=== PATIENT | female | born 1955 | race American Indian/Alaskan Native ===

== ENCOUNTER 2021-08-28 16:44 | Observation (INO) | payer MEDICARE ==
--- NOTE | 2021-08-28 19:21 | Emergency Department Report ---
ED Shortness of Breath HPI - General Chief Complaint: Dyspnea/Respdistress Stated Complaint: Shortness of Breath Time Seen by Provider: 08/28/21 18:42 Source: patient Mode of arrival: Wheelchair Limitations: No Limitations - History of Present Illness Initial Comments: 66-year-old female the past medical history hypertension end-stage renal disease current dialysis Saturday, Saturday, and Saturday presents to the hospital planing of persistent shortness of breath and edema despite completing her dialysis today. Patient states they typically take off 2 to 3 L and took all 4 L today without improvement in her symptoms. Patient states she missed one of her dialysis sessions last week. Patient moved here 1 month ago from [place] and cannot recall the name of her steak tenderizer machine. She currently goes to [facility]. She complains of chronic orthopnea and PND with worsening leg edema over the last 3 weeks. She denies cough, chest pain, fever, or history of PE/DVT. She is vaccinated for Covid and received a booster. Patient states she has very little urine output. Patient reports allergies to lisinopril and penicillin - Related Data Allergies Allergy/AdvReac Type Severity Reaction Status Date / Time lisinopril AdvReac Itching Verified 08/28/21 20:00 Penicillins AdvReac Hives Verified 08/28/21 20:01 ED Review of Systems ROS: Stated complaint: Shortness of Breath Other details as noted in HPI Comment: All other systems reviewed and negative ED Physical Exam - General Limitations: No Limitations - Other Other exam information: General: No acute distress Head: Atraumatic Eyes: normal appearance ENT: Moist mucous membranes Neck: Normal appearance, no midline tenderness Chest: Clear to auscultation bilaterally, no tachypnea CV: Regular rate and rhythm Abdomen: Soft, normal bowel sounds, nontender, nondistended, no rebound or guarding Back: Normal inspection Extremity: 2+ pitting lower extremity edema. No leg asymmetry or calf tenderness Neuro: Alert O x 3, no facial asymmetry, speech clear, no gross motor sensory deficit Psych: Appropriate behavior Skin: No rash ED Course Vital Signs 08/28/21 08/28/21 17:08 17:12 Temperature 98.2 F Pulse Rate 107 H Respiratory 18 Rate Blood Pressure 149/87 [Left] O2 Sat by Pulse 95 Oximetry - Consultations Consultation #1: 01/03/22 20:33 Case discussed with steak tenderizer machine Dr. Collier who will manage dialysis as inpatient ED Medical Decision Making - Lab Data Result diagrams: 08/28/21 19:21 08/28/21 19:21 Lab Results 08/28/21 08/28/21 Range/Units 19:21 19:21 WBC 5.4 (4.5-11.0) K/mm3 RBC 3.66 (3.65-5.03) M/mm3 Hgb 10.0 L (10.1-14.3) gm/dl Hct 31.5 (30.3-42.9) % MCV 86 (79-97) fl MCH 27 L (28-32) pg MCHC 32 (30-34) % RDW 17.0 H (13.2-15.2) % Plt Count 187 (140-440) K/mm3 Sodium 138 (137-145) mmol/L Potassium 4.7 (3.6-5.0) mmol/L Chloride 91.8 L (98-107) mmol/L Carbon Dioxide 31 H (22-30) mmol/L Anion Gap 20 mmol/L BUN 47 H (7-17) mg/dL Creatinine 5.6 H (0.6-1.2) mg/dL Estimated GFR 8 ml/min BUN/Creatinine Ratio 8 % Glucose 79 (65-100) mg/dL Calcium 8.6 (8.4-10.2) mg/dL Total Bilirubin 0.40 (0.1-1.2) mg/dL AST 54 H (5-40) units/L ALT 78 H (7-56) units/L Alkaline Phosphatase 130 H (35-129) units/L Total Protein 8.5 H (6.3-8.2) g/dL Albumin 4.1 (3.9-5) g/dL Albumin/Globulin Ratio 0.9 % - Radiology Data Radiology results: report reviewed CHEST 2 VIEWS INDICATION / CLINICAL INFORMATION: sob. COMPARISON: None available. FINDINGS: SUPPORT DEVICES: None. HEART / MEDIASTINUM: Cardiomediastinal silhouette is enlarged. LUNGS / PLEURA: Bilateral increased interstitial markings. No pneumothorax. ADDITIONAL FINDINGS: No significant additional findings. IMPRESSION: 1. Cardiomegaly with bilateral pulmonary edema. - Medical Decision Making 66-year old female with a past medical history of end-stage renal disease on dialysis and continues to have pulmonary edema shortness of breath despite dialysis. Patient did miss dialysis session last week and therefore is presenting with fluid overload. Case discussed with steak tenderizer machine on-call. Hospitalist informed to admit. ekg pending Critical Care Time: No Critical care attestation.: If time is entered above; I have spent that time in minutes in the direct care of this critically ill patient, excluding procedure time. ED Disposition Clinical Impression: Pulmonary edema, ESRD on dialysis, Missed dialysis Disposition: ADMITTED INPATIENT Is pt being admited?: Yes Does the pt Need Aspirin: No Condition: Stable Instructions: Pulmonary Edema (ED) Time of Disposition: 20:33 (Dr Becerra/hospitalist)
--- NOTE | 2021-08-28 19:39 | XRay Report ---
CHEST 2 VIEWS INDICATION / CLINICAL INFORMATION: sob. COMPARISON: None available. FINDINGS: SUPPORT DEVICES: None. HEART / MEDIASTINUM: Cardiomediastinal silhouette is enlarged. LUNGS / PLEURA: Bilateral increased interstitial markings. No pneumothorax. ADDITIONAL FINDINGS: No significant additional findings. IMPRESSION: 1. Cardiomegaly with bilateral pulmonary edema. Signer Name: Nando Georges MD Signed: 08/28/2021 7:35 PM Workstation Name: [id number]
[2021-08-28 19:50] LABS: Hematocrit 31.5 % (30.3-42.9); Mean Corpuscular HGB Conc 32 % (30-34); Mean Corpuscular Volume 86 fl (79-97); Platelet Count 187 K/mm3 (140-440); Red Blood Count 3.66 M/mm3 (3.65-5.03)
[2021-08-28 20:12] LABS: Alanine Aminotransferase 78 units/L (7-56); Albumin 4.1 g/dL (3.9-5); Blood Urea Nitrogen 47 mg/dL (7-17); Calcium 8.6 mg/dL (8.4-10.2); Hemolysis Index 15
[2021-08-28 20:26] LABS: BUN/Creatinine Ratio 8
[2021-08-28] MEDS ORDERED: MAGNESIUM HYDROXIDE (MOM) ORAL LIQD UDC PO PRN (22:05)
[2021-08-28] MEDS ORDERED: MORPHINE 2 MG/1 ML INJ IV PRN (22:05)
[2021-08-28] MEDS ORDERED: ONDANSETRON 4 MG/2 ML INJ IV PRN (22:05)
[2021-08-28] MEDS ORDERED: MORPHINE 4 MG/1 ML INJ IV PRN (22:05)
--- NOTE | 2021-08-28 22:14 | History and Physical Report ---
History of Present Illness Date of examination: 08/28/21 Date of admission: 08/28/2021 Chief complaint: Shortness of Breath History of present illness: 66-year-old female with known history of hypertension, end-stage renal disease on dialysisMondays, Wednesdays and Fridays presenting to the emergency room today complaining of worsening shortness of breath and lower extremity swelling after completing her dialysis today. She had a full course of dialysis today bu t has found no improvement in her symptoms. She however indicates that she missed a dialysis session about a week ago. She just recently moved from [place] to [place]. She currently goes to [facility]. She has had orthopnea and paroxysmal nocturnal dyspnea in addition to a wor sening lower extremity swelling. She indicates she still makes a little bit of urine. Patient symptoms has been ongoing for about 3 weeks. She denies any cough, no chest pain, no nausea vomiting, no fever or chills, no abdominal pain. Patient denies any sick contacts denies any contact with anyone with COVID-19. She is fully vaccinated against COVID-19. Work-up in the emergency room today, labs reveals BNP greater than 70,000. Chest x-ray reveals cardiomegaly with bilateral pulmonary edema. Snow Groomer on-call has been consulted by the ER physician for possible dialysis. Past History Past Medical History: dialysis, ESRD, hypertension Past Surgical History: Other (A-V fistula placement) Social history: no significant social history Family history: no significant family history Medications and Allergies Allergies Allergy/AdvReac Type Severity Reaction Status Date / Time lisinopril AdvReac Itching Verified 08/28/21 20:00 Penicillins AdvReac Hives Verified 08/28/21 20:01 Active Meds: Active Medications Acetaminophen (Acetaminophen 325 Mg Tab) 650 mg PO Q4H PRN PRN Reason: Pain MILD(1-3)/Fever >100.5/CURRY Heparin Sodium (Porcine) (Heparin 5,000 Unit/1 Ml Vial) 5,000 unit SUB-Q Q8HR S CH Magnesium Hydroxide (Magnesium Hydroxide (Mom) Oral Liqd Udc) 30 ml PO Q4H PRN PRN Reason: Constipation Morphine Sulfate (Morphine 2 Mg/1 Ml Inj) 2 mg IV Q4H PRN PRN Reason: Pain, Moderate (4-6) Morphine Sulfate (Morphine 4 Mg/1 Ml Inj) 4 mg IV Q4H PRN PRN Reason: Pain , Severe (7-10) Ondansetron HCl (Ondansetron 4 Mg/2 Ml Inj) 4 mg IV Q8H PRN PRN Reason: Nausea And Vomiting Sodium Chloride (Sodium Chloride 0.9% 10 Ml Flush Syringe) 10 ml IV BID TIFFANY Sodium Chloride (Sodium Chloride 0.9% 10 Ml Flush Syringe) 10 ml IV PRN PRN PRN Reason: LINE FLUSH Review of Systems Constitutional: no fever, no chills Ears, nose, mouth and throat: no nasal congestion, no sore throat Cardiovascular: no chest pain, no palpitations Respiratory: shortness of breath, no cough Gastrointestinal: no abdominal pain, no nausea, no vomiting, no diarrhea Genitourinary Female: no pelvic pain, no flank pain, no dysuria, no hematuria Musculoskeletal: no neck pain, no low back pain Integumentary: no rash, no pruritis Neurological: no headaches, no confusion Psychiatric: no anxiety, no depression Endocrine: no polyphagia, no polydipsia, no polyuria, no nocturia Exam - Constitutional Vitals: Temp Pulse Resp BP Pulse Ox 98.2 F 107 H 18 149/87 95 08/28/21 17:12 08/28/21 17:08 08/28/21 17:08 08/28/21 17:08 08/28/21 17:08 General appearance: Present: no acute distress, well-nourished - EENT Eyes: Present: PERRL, EOM intact. Absent: scleral icterus ENT: hearing intact, clear oral mucosa, dentition normal - Neck Neck: Present: supple, normal ROM - Respiratory Respiratory effort: normal Respiratory: bilateral: rales - Cardiovascular Rhythm: regular Heart Sounds: Present: S1 & S2. Absent: gallop, systolic murmur, diastolic murmur, rub, click - Extremities Extremities: no ischemia, pulses intact, pulses symmetrical, normal temperature, normal color, Full ROM Extremity abnormal: edema (2+ pedro pablo lower extremity edema) Peripheral Pulses: within normal limits - Abdominal General gastrointestinal: Present: soft, non-tender, non-distended, normal bowel sounds. Absent: mass - Integumentary Integumentary: Present: clear, warm, dry, normal turgor. Absent: rash - Musculoskeletal Musculoskeletal: strength equal bilaterally - Psychiatric Psychiatric: appropriate mood/affect, intact judgment & insight, memory intact, cooperative - Neurologic Neurologic: CNII-XII intact, no focal deficits, moves all extremities Results - Labs CBC & Chem 7: 08/28/21 19:21 08/28/21 19:21 Labs: Abnormal lab results 08/28/21 08/28/21 Range/Units 19:21 19:21 Hgb 10.0 L (10.1-14.3) gm/dl MCH 27 L (28-32) pg RDW 17.0 H (13.2-15.2) % Chloride 91.8 L (98-107) mmol/L Carbon Dioxide 31 H (22-30) mmol/L BUN 47 H (7-17) mg/dL Creatinine 5.6 H (0.6-1.2) mg/dL AST 54 H (5-40) units/L ALT 78 H (7-56) units/L Alkaline Phosphatase 130 H (35-129) units/L NT-Pro-B Natriuret Pep > 73734 H (0-900) pg/mL Total Protein 8.5 H (6.3-8.2) g/dL Assessment and Plan - Patient Problems (1) Pulmonary edema Current Visit: Yes Status: Acute Plan to address problem: Will await nephrology evaluation for possible dialysis. (2) ESRD on dialysis Current Visit: Yes Status: Acute Plan to address problem: Patient gets dialysis on Mondays, Wednesdays and Fridays. (3) Hypertension Current Visit: Yes Status: Acute Plan to address problem: We will resume routine home medications once reconciled. We will monitor vital signs. (4) DVT prophylaxis Current Visit: Yes Status: Acute Plan to address problem: Patient placed on subcutaneous heparin. (5) Full code status Current Visit: Yes Status: Acute Plan to address problem: Patient is full code.
[2021-08-28 22:58] LABS: Total Cells Counted 100
[2021-08-28 23:00] LABS: Anisocytosis Few; Ovalocytes 1+; Schistocytes Few; Target Cells Rare
[2021-08-28 23:01] LABS: Platelet Estimate Consistent w Auto
[2021-08-29] MEDS: ACETAMINOPHEN 325 MG TAB PO PRN ×2 (01:24→21:21)
[2021-08-29] MEDS ORDERED: EPOETIN ALFA-EPBX 10,000 UNIT/1 ML VIAL IV PRN (07:08)
[2021-08-29] MEDS ORDERED: SODIUM CHLORIDE 0.9% 100 ML IV PRN (07:08)
[2021-08-29] MEDS: HEPARIN 5,000 UNIT/1 ML VIAL SUB-Q SCH ×3 (07:16→22:53)
--- NOTE | 2021-08-29 11:31 | Progress Note ---
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 She had a full course of dialysis RAIL TECHNICIAN but has found no improvement in her symptoms. She just recently moved from [place] to [place]. She currently goes to [facility]. The patient report orthopnea and paroxysmal nocturnal dyspnea in addition to a worsening lower extremity swelling for about 3 weeks. Acute hypoxic respiratory failure pulmonary edema ESRD on hemodialysis Hypertension 08/29/2021. Patient undergo hemodialysis per nephrology recommendations. Nephrology consultation pending. We will check echocardiogram. History Interval history: No new issues overnight Hospitalist Physical - Constitutional Vitals: Temp Pulse Resp BP Pulse Ox 98.2 F 102 H 18 133/71 92 08/28/21 17:12 08/29/21 10:01 08/29/21 10:01 08/29/21 10:01 08/29/21 10:01 General appearance: Present: no acute distress, well-nourished - EENT Eyes: Present: PERRL, EOM intact ENT: hearing intact, clear oral mucosa, dentition normal - Neck Neck: Present: supple, normal ROM - Respiratory Respiratory effort: normal Respiratory: bilateral: CTA - Cardiovascular Rhythm: regular Heart Sounds: Present: S1 & S2. Absent: gallop, rub - Extremities Extremities: no ischemia, No edema, Full ROM - Abdominal General gastrointestinal: soft, non-tender, non-distended, normal bowel sounds - Integumentary Integumentary: Present: clear, warm, dry - Neurologic Neurologic: CNII-XII intact, moves all extremities Results - Labs CBC & Chem 7: 08/28/21 19:21 08/28/21 19:21 Labs: Laboratory Last Values WBC 5.4 K/mm3 (4.5-11.0) 08/28/21 19: RBC 3.66 M/mm3 (3.65-5.03) 08/28/21 19:21 Hgb 10.0 gm/dl (10.1-14.3) L 08/28/21 19: Hct 31.5 % (30.3-42.9) 08/28/21 19: MCV 86 fl (79-97) 08/28/21 19:21 MCH 27 pg (28-32) L 08/28/21 19:21 MCHC 32 % (30-34) 08/28/21 19:21 RDW 17.0 % (13.2-15.2) H 08/28/21 19:21 Plt Count 187 K/mm3 (140-440) 08/28/21 19:21 Add Manual Diff Complete 08/28/21 19:21 Total Counted 100 08/28/21 19:21 Seg Neuts % (Manual) 76.0 % (40.0-70.0) H 08/28/21 19:21 Lymphocytes % (Manual) 19.0 % (13.4-35.0) 08/28/21 19:21 Monocytes % (Manual) 5.0 % (0.0-7.3) 08/28/21 19:21 Nucleated RBC % Not Reportable 08/28/21 19:21 Seg Neutrophils # Man 4.1 K/mm3 (1.8-7.7) 08/28/21 19:21 Band Neutrophils # 0.0 K/mm3 08/28/21 19:21 Lymphocytes # (Manual) 1.0 K/mm3 (1.2-5.4) L 08/28/21 19:21 Abs React Lymphs (Man) 0.0 K/mm3 08/28/21 19:21 Monocytes # (Manual) 0.3 K/mm3 (0.0-0.8) 08/28/21 19:21 Eosinophils # (Manual) 0.0 K/mm3 (0.0-0.4) 08/28/21 19:21 Basophils # (Manual) 0.0 K/mm3 (0.0-0.1) 08/28/21 19:21 Metamyelocytes # 0.0 K/mm3 08/28/21 19:21 Myelocytes # 0.0 K/mm3 08/28/21 19:21 Promyelocytes # 0.0 K/mm3 08/28/21 19:21 Blast Cells # 0.0 K/mm3 08/28/21 19:21 WBC Morphology Not Reportable 08/28/21 19:21 Hypersegmented Neuts Not Reportable 08/28/21 19:21 Hyposegmented Neuts Not Reportable 08/28/21 19:21 Hypogranular Neuts Not Reportable 08/28/21 19:21 Smudge Cells Not Reportable 08/28/21 19:21 Toxic Granulation Not Reportable 08/28/21 19:21 Toxic Vacuolation Not Reportable 08/28/21 19:21 Dohle Bodies Not Reportable 08/28/21 19:21 Pelger-Huet Anomaly Not Reportable 08/28/21 19:21 Delta Rods Not Reportable 08/28/21 19:21 Platelet Estimate Consistent w auto 08/28/21 19:21 Clumped Platelets Not Reportable 08/28/21 19:21 Plt Clumps, EDTA Not Reportable 08/28/21 19:21 Large Platelets Not Reportable 08/28/21 19:21 Giant Platelets Not Reportable 08/28/21 19:21 Platelet Satelliting Not Reportable 08/28/21 19:21 Plt Morphology Comment Not Reportable 08/28/21 19:21 RBC Morphology Not Reportable 08/28/21 19:21 Dimorphic RBCs Not Reportable 08/28/21 19:21 Polychromasia Not Reportable 08/28/21 19:21 Hypochromasia Not Reportable 08/28/21 19:21 Poikilocytosis Not Reportable 08/28/21 19:21 Anisocytosis Few 08/28/21 19:21 Microcytosis Not Reportable 08/28/21 19:21 Macrocytosis Not Reportable 08/28/21 19:21 Spherocytes Not Reportable 08/28/21 19:21 Pappenheimer Bodies Not Reportable 08/28/21 19:21 Sickle Cells Not Reportable 08/28/21 19:21 Target Cells Rare 08/28/21 19:21 Tear Drop Cells Not Reportable 08/28/21 19:21 Ovalocytes 1+ 08/28/21 19:21 Helmet Cells Not Reportable 08/28/21 19:21 [place] Bodies Not Reportable 08/28/21 19:21 Shelby Rings Not Reportable 08/28/21 19:21 Flora Cells Not Reportable 08/28/21 19:21 Bite Cells Not Reportable 08/28/21 19:21 Crenated Cell Not Reportable 08/28/21 19:21 Elliptocytes Not Reportable 08/28/21 19:21 Acanthocytes (Spur) Not Reportable 08/28/21 19:21 Rouleaux Not Reportable 08/28/21 19:21 Hemoglobin C Crystals Not Reportable 08/28/21 19:21 Schistocytes Few 08/28/21 19:21 Malaria parasites Not Reportable 08/28/21 19:21 Arcenio Bodies Not Reportable 08/28/21 19:21 Hem Pathologist Commnt No 08/28/21 19:21 Sodium 138 mmol/L (137-145) 08/28/21 19:21 Potassium 4.7 mmol/L (3.6-5.0) 08/28/21 19:21 Chloride 91.8 mmol/L (98-107) L 08/28/21 19:21 Carbon Dioxide 31 mmol/L (22-30) H 08/28/21 19:21 Anion Gap 20 mmol/L 08/28/21 19:21 BUN 47 mg/dL (7-17) H 08/28/21 19:21 Creatinine 5.6 mg/dL (0.6-1.2) H 08/28/21 19:21 Estimated GFR 8 ml/min 08/28/21 19:21 BUN/Creatinine Ratio 8 % 08/28/21 19:21 Glucose 79 mg/dL (65-100) 08/28/21 19:21 Calcium 8.6 mg/dL (8.4-10.2) 08/28/21 19:21 Total Bilirubin 0.40 mg/dL (0.1-1.2) 08/28/21 19:21 AST 54 units/L (5-40) H 08/28/21 19:21 ALT 78 units/L (7-56) H 08/28/21 19:21 Alkaline Phosphatase 130 units/L (35-129) H 08/28/21 19:21 NT-Pro-B Natriuret Pep > 53276 pg/mL (0-900) H 08/28/21 19:21 Total Protein 8.5 g/dL (6.3-8.2) H 08/28/21 19:21 Albumin 4.1 g/dL (3.9-5) 08/28/21 19:21 Albumin/Globulin Ratio 0.9 % 08/28/21 19:21 Active Medications - Current Medications Current Medications: Generic Name Dose Route Start Last Admin Trade Name Freq PRN Reason Stop Dose Admin Acetaminophen 650 mg 08/28/21 22:05 08/29/21 01:24 Acetaminophen 325 Mg Tab PO 650 mg Q4H PRN Administration Pain MILD(1-3)/Fever >100.5/CURRY Heparin Sodium (Porcine) 5,000 unit 08/29/21 06:00 08/29/21 07:16 Heparin 5,000 Unit/1 Ml Vial SUB-Q 5,000 unit Q8HR TIFFANY Administration Sodium Chloride 100 mls @ 999 mls/hr 08/29/21 07:08 Nacl 0.9% IV KATHY PRN Hypotension Magnesium Hydroxide 30 ml 08/28/21 22:05 Magnesium Hydroxide (Mom) Oral Liqd Udc PO Q4H PRN Constipation Morphine Sulfate 2 mg 08/28/21 22:05 Morphine 2 Mg/1 Ml Inj IV Q4H PRN Pain, Moderate (4-6) Morphine Sulfate 4 mg 08/28/21 22:05 Morphine 4 Mg/1 Ml Inj IV Q4H PRN Pain , Severe (7-10) Ondansetron HCl 4 mg 08/28/21 22:05 Ondansetron 4 Mg/2 Ml Inj IV Q8H PRN Nausea And Vomiting Sodium Chloride 10 ml 08/29/21 10:00 08/29/21 10:02 Sodium Chloride 0.9% 10 Ml Flush Syringe IV 10 ml BID TIFFANY Administration Sodium Chloride 10 ml 08/28/21 22:05 Sodium Chloride 0.9% 10 Ml Flush Syringe IV PRN PRN LINE FLUSH
[2021-08-29 12:12] LABS: Hepatitis C Virus Antibody Non-Reactive (NonReactive)
[2021-08-29 12:14] LABS: Hepatitis B Surface Antigen Nonreactive (Negative)
--- NOTE | 2021-08-29 13:24 | Consultation ---
History of Present Illness - Reason for Consult end stage renal disease - History of Present Illness very pleasant 66-year-old female with a history of end-stage renal disease in the setting of hypertension who recently moved to [place] from [place], who currently dialyzes at [facility], presented to the emergency department with shortness of breath. Her last dialysis treatment was yesterday. She is on a Saturday, Saturday, Saturday hemodialysis schedule. She is under the care of Dr. Montalvo as an outpatient. Per dialysis nurse at the facility it seems that Ms. Corona has had issues with missing treatments in the past and also with high intradialytic weight gain. She in fact was supposed to be set up for sequential treatment today as an outpatient but came into the emergency room department at this time. Nephrology consult for further dialysis management. Past History Past Medical History: dialysis, ESRD, hypertension Past Surgical History: Other (A-V fistula placement) Social history: no significant social history Family history: no significant family history Medications and Allergies Allergies Allergy/AdvReac Type Severity Reaction Status Date / Time lisinopril AdvReac Itching Verified 08/29/21 09:55 Penicillins AdvReac Hives Verified 08/29/21 09:55 Home Medications Medication Instructions Recorded Confirmed Last Taken Type Losartan [Cozaar] 50 mg PO QDAY 08/29/21 08/29/21 08/27/21 History Multivitamin [Multiple Vitamins] 1 each PO QDAY 08/29/21 08/29/21 08/27/21 History carvediloL [Coreg] 3.125 mg PO BID 08/29/21 08/29/21 08/27/21 History Active Meds: Active Medications Acetaminophen (Acetaminophen 325 Mg Tab) 650 mg PO Q4H PRN PRN Reason: Pain MILD(1-3)/Fever >100.5/CURRY Last Admin: 08/29/21 01:24 Dose: 650 mg Documented by: Heparin Sodium (Porcine) (Heparin 5,000 Unit/1 Ml Vial) 5,000 unit SUB-Q Q8HR TIFFANY Last Admin: 08/29/21 07:16 Dose: 5,000 unit Documented by: Sodium Chloride (Nacl 0.9%) 100 mls @ 999 mls/hr IV KATHY PRN PRN Reason: Hypotension Magnesium Hydroxide (Magnesium Hydroxide (Mom) Oral Liqd Udc) 30 ml PO Q4H PRN PRN Reason: Constipation Morphine Sulfate (Morphine 2 Mg/1 Ml Inj) 2 mg IV Q4H PRN PRN Reason: Pain, Moderate (4-6) Morphine Sulfate (Morphine 4 Mg/1 Ml Inj) 4 mg IV Q4H PRN PRN Reason: Pain , Severe (7-10) Ondansetron HCl (Ondansetron 4 Mg/2 Ml Inj) 4 mg IV Q8H PRN PRN Reason: Nausea And Vomiting Sodium Chloride (Sodium Chloride 0.9% 10 Ml Flush Syringe) 10 ml IV BID TIFFANY Last Admin: 08/29/21 10:02 Dose: 10 ml Documented by: Sodium Chloride (Sodium Chloride 0.9% 10 Ml Flush Syringe) 10 ml IV PRN PRN PRN Reason: LINE FLUSH Review of Systems All systems: negative Constitutional: fatigue, weakness Cardiovascular: shortness of breath Exam - Vital Signs Vital signs: Vital Signs Pulse Resp BP Pulse Ox 107 H 18 149/87 95 08/28/21 17:08 08/28/21 17:08 08/28/21 17:08 08/28/21 17:08 - General Appearance General appearance: well-developed, obese EENT: ATNC Neck: Present: neck supple, trachea midline Respiratory: Decreased Breath Sounds Heart: regular Gastrointestinal: Present: normal Integumentary: no rash, warm and dry Neurologic: no focal deficit, alert and oriented x3 Musculoskeletal: Present: deferred Psychiatric: cooperative Results - Lab Results 08/28/21 19:21 08/28/21 19:21 Most recent lab results Calcium 8.6 mg/dL (8.4-10.2) 08/28/21 19:21 Assessment and Plan - Patient Problems (1) Fluid overload Current Visit: Yes Status: Acute Plan to address problem: Will assess for sequential ultrafiltration treatment today for further volume optimization. From nephrology standpoint if she remains stable post dialysis treatment then she can be discharged with follow-up at her outpatient dialysis unit. (2) ESRD on dialysis Current Visit: Yes Status: Chronic Plan to address problem: we will set patient up for sequential ultrafiltration treatment today for further volume optimization. If patient does state till tomorrow then will have her dialyze on her regular Saturday, Saturday, Saturday hemodialysis schedule. (3) Anemia in CKD (chronic kidney disease) Current Visit: Yes Status: Chronic Qualifiers: Chronic kidney disease stage: on chronic dialysis Qualified Code(s): N18.6 - End stage renal disease; D63.1 - Anemia in chronic kidney disease; Z99.2 - D ependence on renal dialysis Plan to address problem: KATIUSKA therapy with hemodialysis. (4) Secondary hyperparathyroidism Current Visit: Yes Status: Chronic Plan to address problem: continue on home phosphorus binder regimen. (5) Hypertension Current Visit: Yes Status: Acute Plan to address problem: monitor blood pressures under current regimen.
[2021-08-30] MEDS: ACETAMINOPHEN 325 MG TAB PO PRN (01:32)
[2021-08-30] MEDS: HEPARIN 5,000 UNIT/1 ML VIAL SUB-Q SCH (06:26)
[2021-08-30] MEDS ORDERED: carvediloL 3.125 MG TAB PO ONE (06:40)
[2021-08-30] MEDS ORDERED: carvediloL 3.125 MG TAB PO SCH (10:00)
[2021-08-30] MEDS ORDERED: SODIUM CHLORIDE 0.9% 100 ML IV PRN (10:33)
--- NOTE | 2021-08-30 10:34 | Discharge Summary ---
Providers - Providers Date of Admission: 08/28/21 22:06 Date of discharge: 08/30/21 Attending physician: ADRIA ESCAMILLA 08/28/21 20:30 Consult to Physician [CONS] Urgent Comment: Consulting Provider: JULIET AVENDANO Physician Instructions: Reason For Exam: esrd on dialysis, pulm edema Primary care physician: ABIMBOLA MCDERMOTT Hospitalization Reason for admission: SOB Condition: Stable Hospital course: 66-year-old female with a history of end-stage renal disease in the setting of hypertension who recently moved to [place] from [place], who currently dialyzes at [facility], presented to the emergency department with shortness of breath. The patient was admitted with diagnosis of acute hypoxic respiratory failure, pulmonary edema and ESRD on hemodialysis. Chest x-ray revealed mild pulmonary edema. Her last dialysis treatment was the . She is on a Saturday, Saturday, Saturday hemodialysis schedule. She is under the care of Dr. Montalvo as an outpatient. Per dialysis nurse at the facility it seems that Ms. Corona has had issues with missing treatments in the past and also with high intradialytic weight gain. She in fact was supposed to be set up for sequential treatment the day of admission as an outpatient but came into the emergency room department at this time. Nephrology consulted for further dialysis management. The patient underwent echocardiogram which revealed LVEF 35-40% with right ventricle mildly dilated and left atrium severely dilated with mild to moderate aortic stenosis and RVSP 56 mmHg. The patient underwent hemodialysis during the hospitalization and respiratory issues resolved. Patient will be set up for follow-up appointment as an outpatient with cardiology. Dedicated discharge time 35 minutes. Disposition: 01 HOME / SELF CARE / HOMELESS Final Discharge Diagnosis (Prints w/discharge instructions): Acute hypoxic respiratory failure, pulmonary edema, ESRD on hemodialysis, hypertension Core Measure Documentation - Palliative Care Palliative Care/ Comfort Measures: Not Applicable - Core Measures Any of the following diagnoses?: none Exam - Constitutional Vitals: Temp Pulse Resp BP Pulse Ox 97.7 F 88 18 128/77 95 08/30/21 08:34 08/30/21 08:34 08/30/21 08:34 08/30/21 08:34 08/30/21 08:34 General appearance: Present: no acute distress, well-nourished - EENT Eyes: Present: PERRL ENT: hearing intact, clear oral mucosa - Neck Neck: Present: supple, normal ROM - Respiratory Respiratory effort: normal Respiratory: bilateral: CTA - Cardiovascular Heart Sounds: Present: S1 & S2. Absent: rub, click - Extremities Extremities: pulses symmetrical, No edema Peripheral Pulses: within normal limits - Abdominal General gastrointestinal: Present: soft, non-tender, non-distended, normal bowel sounds Female genitourinary: Present: normal - Integumentary Integumentary: Present: clear, warm, dry - Musculoskeletal Musculoskeletal: gait normal, strength equal bilaterally - Psychiatric Psychiatric: appropriate mood/affect, intact judgment & insight - Neurologic Neurologic: CNII-XII intact, moves all extremities Plan Activity: advance as tolerated Weight Bearing Status: Weight Bear as Tolerated Diet: regular Follow up with: ABIMBOLA MCDERMOTT MD [Primary Care Provider] - 7 Days ABDI MORA MD [Staff Physician] - 7 Days
--- NOTE | 2021-08-30 11:05 | Progress Note ---
Assessment and Plan - Patient Problems (1) Fluid overload Current Visit: Yes Status: Acute Plan to address problem: Will plan for HD treatment today to keep her on her MWF HD schedule. If stable post dialysis treatment, then she can be discharged from renal standpoint. (2) ESRD on dialysis Current Visit: Yes Status: Chronic Plan to address problem: we have placed orders for MWF inpatient HD schedule. (3) Anemia in CKD (chronic kidney disease) Current Visit: Yes Status: Chronic Qualifiers: Chronic kidney disease stage: on chronic dialysis Qualified Code(s): N18.6 - End stage renal disease; D63.1 - Anemia in chronic kidney disease; Z99.2 - Dependence on renal dialysis Plan to address problem: KATIUSKA therapy with hemodialysis. (4) Secondary hyperparathyroidism Current Visit: Yes Status: Chronic Plan to address problem: continue on home phosphorus binder regimen. (5) Hypertension Current Visit: Yes Status: Acute Plan to address problem: monitor blood pressures under current regimen. Subjective Date of service: 08/30/21 Interval history: Tolerated sequential UF treatment yesterday. Plan for regular dialysis treatment this am. Objective - Vital Signs Vital signs: Vital Signs - 12hr 08/30/21 08/30/21 08/30/21 01:35 06:44 07:40 Temperature 97.7 F Pulse Rate 91 H 85 86 Respiratory 17 18 Rate Blood Pressure 148/91 133/90 Blood Pressure 154/91 [Left] O2 Sat by Pulse 99 95 Oximetry 08/30/21 08:34 Temperature 97.7 F Pulse Rate 88 Respiratory 18 Rate Blood Pressure 128/77 Blood Pressure [Left] O2 Sat by Pulse 95 Oximetry - General Appearance General appearance: well-developed, appears stated age EENT: ATNC Neck: no JVD Respiratory: Present: Decreased Breath Sounds Cardiology: regular Gastrointestinal: normal Integumentary: no rash Neurologic: no focal deficit, gait normal Musculoskeletal: deferred Psychiatric: mood/affect appropriate, cooperative - Lab 08/28/21 19:21 08/28/21 19:21 Most recent lab results Calcium 8.6 mg/dL (8.4-10.2) 08/28/21 19:21 - Allied health notes Allied health notes reviewed: nursing Medications & Allergies - Medications Allergies/Adverse Reactions: Allergies lisinopril Adverse Reaction (Verified 08/29/21 09:55) Itching Penicillins Adverse Reaction (Verified 08/29/21 09:55) Hives Home Medications: Home Medications Medication Instructions Recorded Confirmed Last Taken Type Losartan [Cozaar] 50 mg PO QDAY 08/29/21 08/29/21 08/27/21 History Multivitamin [Multiple Vitamins] 1 each PO QDAY 08/29/21 08/29/21 08/27/21 History carvediloL [Coreg] 3.125 mg PO BID 08/29/21 08/29/21 08/27/21 History carvediloL [Coreg] 3.125 mg PO BID tablet 08/30/21 Unknown Rx Active Medications: Generic Name Dose Route Start Last Admin Trade Name Freq PRN Reason Stop Dose Admin Acetaminophen 650 mg 08/28/21 22:05 08/30/21 01:32 Acetaminophen 325 Mg Tab PO 650 mg Q4H PRN Administration Pain MILD(1-3)/Fever >100.5/CURRY Carvedilol 3.125 mg 08/30/21 10:00 08/30/21 10:30 Carvedilol 3.125 Mg Tab PO 3.125 mg BID TIFFANY Administration Heparin Sodium (Porcine) 5,000 unit 08/29/21 06:00 08/30/21 06:26 Heparin 5,000 Unit/1 Ml Vial SUB-Q 5,000 unit Q8HR TIFFANY Administration Sodium Chloride 100 mls @ 999 mls/hr 08/29/21 07:08 Nacl 0.9% IV KATHY PRN Hypotension Sodium Chloride 100 mls @ 999 mls/hr 08/30/21 10:33 Nacl 0.9% IV KATHY PRN Hypotension Magnesium Hydroxide 30 ml 08/28/21 22:05 Magnesium Hydroxide (Mom) Oral Liqd Udc PO Q4H PRN Constipation Morphine Sulfate 2 mg 08/28/21 22:05 Morphine 2 Mg/1 Ml Inj IV Q4H PRN Pain, Moderate (4-6) Morphine Sulfate 4 mg 08/28/21 22:05 08/29/21 21:21 Morphine 4 Mg/1 Ml Inj IV 4 mg Q4H PRN Administration Pain , Severe (7-10) Ondansetron HCl 4 mg 08/28/21 22:05 08/29/21 21:21 Ondansetron 4 Mg/2 Ml Inj IV 4 mg Q8H PRN Administration Nausea And Vomiting Sodium Chloride 10 ml 08/29/21 10:00 08/29/21 22:57 Sodium Chloride 0.9% 10 Ml Flush Syringe IV 10 ml BID TIFFANY Administration Sodium Chloride 10 ml 08/28/21 22:05 Sodium Chloride 0.9% 10 Ml Flush Syringe IV PRN PRN LINE FLUSH
[2021-08-30 18:21] VITALS: BP 132/57
== END 2021-08-30 18:50 | disposition home or self-care (01) ==
LOC: ED 16:44 → 4A 22:06
PROVIDERS: ADMIT Internal Medicine Geriatric Medicine; ATTEND Hospitalist
DX: J96.01 Acute respiratory failure with hypoxia (principal); E87.70 Fluid overload, unspecified; J81.1 Chronic pulmonary edema; I12.0 Hypertensive chronic kidney disease with stage 5 chronic kidney disease or end stage renal disease; N18.6 End stage renal disease; D63.1 Anemia in chronic kidney disease; N25.81 Secondary hyperparathyroidism of renal origin; Z79.899 Other long term (current) drug therapy; Z98.890 Other specified postprocedural states; Z99.2 Dependence on renal dialysis; Z86.711 Personal history of pulmonary embolism; Z86.718 Personal history of other venous thrombosis and embolism
CPT/HCPCS: 36415; 71046; 80053; 80074; 83880; 85025; 93306; 96372; 96374; 96375; 99284; G0257; G0378; J1644; J2270; J2405; 85007

== ENCOUNTER 2021-09-11 09:44 | Inpatient (IN) | payer MEDICARE ==
--- NOTE | 2021-09-11 10:38 | Event Note ---
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 Further treatment and workup at subsequent clinical providers discretion. Patient/guardian urged not to elope from the ED as their condition may be serious if not clinically assessed and managed. Initial orders include: X-ray EKG Labs
[2021-09-11] MEDS ORDERED: dexAMETHasone 4 MG/ML VIAL IV ONE (10:59)
[2021-09-11] MEDS ORDERED: ACETAMINOPHEN 325 MG TAB PO ONE (10:59)
[2021-09-11] MEDS ORDERED: ONDANSETRON 4 MG/2 ML INJ IV ONE (10:59)
--- NOTE | 2021-09-11 11:02 | Emergency Department Report ---
ED General Adult HPI - General Chief complaint: Dyspnea/Respdistress Stated complaint: SOB PUI?: Yes Time Seen by Provider: 09/11/21 10:23 Source: patient, RN notes reviewed, old records reviewed Mode of arrival: Wheelchair Limitations: Physical Limitation - History of Present Illness Initial comments: The patient was evaluated in the emergency department for symptoms described in the history of present illness. He/she was evaluated in the context of the global COVID-19 pandemic, which necessitated consideration that the patient might be at risk for infection with the virus that causes COVID-19. Institutional protocols and algorithms that pertain to the evaluation of patients at risk for COVID-19 are in a state of rapid change based on information released by regulatory bodies including the CDC and federal and state organizations. These policies and algorithms were followed during the patient's care in the emergency department. Please note that these policies, procedures and recommendations changed on a rapid basis. Past medical history: End-stage renal disease, on hemodialysis, hypertension, COVID-19 vaccinated, congestive heart failure, ejection fraction 35 to 40%, follows with Dr. Montalvo of nephrology. The patient is a 66-year-old female, who presents to the ER with a complaint of painless shortness of breath. She denies fever. She denies loss of taste and smell. She feels like her lower extremities are swollen. This is similar to her prior presentation from a few weeks ago, when she presented with fluid overload. Symptoms increased with physical exertion and decreased with rest. -: Gradual, days(s) Consistency: constant Improves with: rest Worsens with: movement - Related Data Home Medications Medication Instructions Recorded Confirmed Last Taken Losartan [Cozaar] 50 mg PO QDAY 08/29/21 08/29/21 08/27/21 Multivitamin [Multiple Vitamins] 1 each PO QDAY 08/29/21 08/29/21 08/27/21 carvediloL [Coreg] 3.125 mg PO BID 08/29/21 08/29/21 08/27/21 Previous Rx's Medication Instructions Recorded Last Taken Type carvediloL [Coreg] 3.125 mg PO BID tablet 08/30/21 Unknown Rx Allergies Allergy/AdvReac Type Severity Reaction Status Date / Time lisinopril AdvReac Itching Verified 09/11/21 09:45 Penicillins AdvReac Hives Verified 09/11/21 09:45 ED Review of Systems ROS: Stated complaint: SOB Other details as noted in HPI Constitutional: malaise, weakness Eyes: denies: eye discharge ENT: congestion Respiratory: shortness of breath Cardiovascular: edema. denies: chest pain Gastrointestinal: nausea, diarrhea. denies: abdominal pain, vomiting Neurological: weakness Psychiatric: anxiety ED Past Medical Hx - Past Medical History Hx Hypertension: Yes Hx Renal Disease: Yes - Social History Smoking Status: Never Smoker Substance Use Type: None - Medications Home Medications: Home Medications Medication Instructions Recorded Confirmed Last Taken Type Losartan [Cozaar] 50 mg PO QDAY 08/29/21 08/29/21 08/27/21 History Multivitamin [Multiple Vitamins] 1 each PO QDAY 08/29/21 08/29/21 08/27/21 History carvediloL [Coreg] 3.125 mg PO BID 08/29/21 08/29/21 08/27/21 History carvediloL [Coreg] 3.125 mg PO BID tablet 08/30/21 Unknown Rx ED Physical Exam - General Limitations: Physical Limitation General appearance: alert, anxious, in distress, obese - Head Head exam: Present: atraumatic, normocephalic - Eye Eye exam: Present: normal appearance, EOMI. Absent: nystagmus - ENT ENT exam: Present: normal exam, normal orophraynx, mucous membranes moist, normal external ear exam - Neck Neck exam: Present: normal inspection, full ROM. Absent: tenderness, meningis mus - Respiratory Respiratory exam: Present: respiratory distress, rales, rhonchi, accessory muscle use, decreased breath sounds. Absent: wheezes, stridor - Cardiovascular Cardiovascular Exam: Present: regular rate, normal rhythm, normal heart sounds, systolic murmur, JVD. Absent: bradycardia, tachycardia, irregular rhythm, diastolic murmur, rubs, gallop - GI/Abdominal GI/Abdominal exam: Present: soft. Absent: distended, tenderness, guarding, rebound, rigid, pulsatile mass - Extremities Exam Extremities exam: Present: normal inspection (Right upper extremity graft, without redness, pus or streaking.), full ROM, pedal edema (2-3+ edema in the bilateral lower extremity), other (2+ pulses noted in the bilateral upper and lower extremities. There is no palpable cord. negative Homans sign. Muscular compartments are soft. The pelvis is stable.). Absent: calf tenderness - Back Exam Back exam: Present: normal inspection. Absent: tenderness, CVA tenderness (R), CVA tenderness (L), paraspinal tenderness, vertebral tenderness - Neurological Exam Neurological exam: Present: alert, oriented X3, other (No facial droop. Tongue midline. Extraocular movements intact bilaterally. Facial sensation intact to light touch in V1, V2, V3 distribution bilaterally. 5 and a 5 strength in 4 extremities. Sensation intact to light touch in 4 extremities.). Absent: motor sensory deficit - Psychiatric Psychiatric exam: Present: anxious - Skin Skin exam: Present: warm, dry, intact, normal color. Absent: rash ED Course Vital Signs 09/11/21 09/11/21 09/11/21 09:48 11:50 12:16 Temperature 97.7 F Pulse Rate 93 H 83 Respiratory 20 Rate Blood Pressure 164/97 O2 Sat by Pulse 99 94 Oximetry - Reevaluation(s) Reevaluation #1: 09/11/21 12:11 Differential diagnosis, including but not limited to: Hyperkalemia, azotemia, uremia, metabolic acidosis, fluid overload, pneumonia, COVID-19, congestive heart failure Assessment and plan: 66-year-old female, with JVD, crackles and rales, lower extremity edema, who is COVID-19 vaccinated, resenting with hyperkalemia, azo temia, uremia, metabolic acidosis, stigmata of decompensated renal disease. She is protecting her airway. Have requested nephrology consultation. Awaiting callback. Have recommended admission to the medical service for hemodialysis, and supportive care. Patient is agreeable to this plan of care. Place patient on gas tester, obtain appropriate laboratory studies, nephrology consultation, treat hyperkalemia empirically, withhold Kayexalate at this time, start steroids, send COVID labs, admit patient to the medical service I discussed this plan of care with the patient. She is agreeable to this plan of care. 09/11/21 12:13 Elevated troponin is likely a type II troponin leak. Hospital physician, Dr. Becerra, to admit patient to the medical service. - Consultations Consultation #1: 09/11/21 12:36 Discussed the history, physical, laboratory studies and clinical impression with GAVI Hathaway with Dr Tiffanie Melendez The nephrology group will follow in consultation and make further inpatient recommendations ED Medical Decision Making - Lab Data Result diagrams: 09/11/21 10:54 09/11/21 11:04 Vital Signs 09/11/21 09/11/21 09:48 11:50 Temperature 97.7 F Pulse Rate 93 H Respiratory 20 Rate Blood Pressure 164/97 O2 Sat by Pulse 99 94 Oximetry Vital Signs 09/11/21 09/11/21 09:48 11:50 Temperature 97.7 F Pulse Rate 93 H Respiratory 20 Rate Blood Pressure 164/97 O2 Sat by Pulse 99 94 Oximetry - EKG Data -: EKG Interpreted by Hi EKG shows normal: sinus rhythm Rate: normal - EKG Data 09/11/21 12:16 The EKG is interpreted at 12: 12 Sinus rhythm, 84 bpm. Left axis deviation, left anterior fascicular block, QTC 529 ms, with motion artifact. This is an abnormal EKG. This is not a STEMI - Radiology Data Radiology results: report reviewed, image reviewed CHEST 2 VIEWS INDICATION / CLINICAL INFORMATION: Dyspnea. FINDINGS: SUPPORT DEVICES: None. HEART / MEDIASTINUM: Cardiac silhouette has slightly decreased in size from 08/28/2021 LUNGS / PLEURA: Mild persistent interstitial edema. No significant pleural effusion. Signer Name: Nawaf Salomon MD Signed: 09/11/2021 10:01 AM Workstation Name: [id number] Critical care attestation.: If time is entered above; I have spent that time in minutes in the direct care of this critically ill patient, excluding procedure time. ED Disposition Clinical Impression: Pulmonary edema, Fluid overload, ESRD on dialysis, Hyperkalemia, Metabolic acidosis, Suspected 2019 novel coronavirus infection Disposition: ADMITTED INPATIENT Is pt being admited?: Yes Does the pt Need Aspirin: No Condition: Good Instructions: Pulmonary Edema (ED) Referrals: PRIMARY CARE, [Primary Care Provider] - 3-5 Days
--- NOTE | 2021-09-11 11:05 | XRay Report ---
CHEST 2 VIEWS INDICATION / CLINICAL INFORMATION: Dyspnea. FINDINGS: SUPPORT DEVICES: None. HEART / MEDIASTINUM: Cardiac silhouette has slightly decreased in size from 08/28/2021 LUNGS / PLEURA: Mild persistent interstitial edema. No significant pleural effusion. Signer Name: Nawaf Salomon MD Signed: 09/11/2021 11:01 AM Workstation Name: [id number]
[2021-09-11 11:29] LABS: INR 1.04 (0.87-1.13)
[2021-09-11 11:35] LABS: Hematocrit 35.1 % (30.3-42.9); Hemoglobin 10.9 gm/dl (10.1-14.3); Mean Corpuscular HGB Conc 31 % (30-34); Mean Corpuscular Volume 87 fl (79-97); Platelet Count 170 K/mm3 (140-440); Red Blood Count 4.04 M/mm3 (3.65-5.03); Red Cell Distribution Width 17.6 % (13.2-15.2)
[2021-09-11 11:42] LABS: C-Reactive Protein 2.4 mg/dL (0.00-1.30)
[2021-09-11 11:45] LABS: Albumin 3.7 g/dL (3.9-5)
[2021-09-11 12:06] LABS: Chol/HDL Ratio 3.37 %
[2021-09-11] MEDS ORDERED: SODIUM BICARB 8.4% 50 MEQ/50 ML SYRINGE IV ONE (12:08)
[2021-09-11] MEDS ORDERED: DEXTROSE 50% IN WATER (25GM) 50 ML SYRINGE IV ONE (12:08)
[2021-09-11] MEDS ORDERED: INSULIN REGULAR, HUMAN 100 UNITS/1 ML IV ONE (12:08)
[2021-09-11] MEDS ORDERED: ALBUTEROL 2.5 MG/3 ML NEBU IH ONE (12:08)
[2021-09-11] MEDS ORDERED: ASPIRIN 81 MG TAB CHEW PO ONE (12:13)
[2021-09-11] MEDS ORDERED: ONDANSETRON 4 MG/2 ML INJ IV PRN (12:15)
[2021-09-11] MEDS ORDERED: oxyCODONE /ACETAMINOPHEN 5-325MG TAB PO PRN (12:15)
[2021-09-11] MEDS ORDERED: ALBUTEROL 2.5 MG/3 ML NEBU IH PRN (12:15)
[2021-09-11] MEDS ORDERED: HYDROmorphone 1 MG/1 ML INJ IV PRN (12:15)
--- NOTE | 2021-09-11 12:15 | History and Physical Report ---
History of Present Illness Chief complaint: I am short of breath History of present illness: 66 YO Female with ESRD on HD(M,W,F), HTN, Obesity Hypoventilation Syndrome presents to ED for evaluation. Patient reports " I am short of breath". Patient states that she has experienced shortness of breath over the past 1 day with persistent and worsening symptoms over the same timeframe. Patient knowledges fatigue, malaise, diminished sense of smell, diminished sense of taste, body aches, and generalized weakness. Patient states that symptoms worsen after completion of her dialysis session today. Patient transported to [facility] for further care and evaluation of the aforementioned symptoms. The patient was seen and evaluated in the emergency department. All lab and imaging studies reviewed. Patient was found to have a pulse oximetry of 89% on room air which is consistent with acute hypoxemic respiratory failure. Chest x-ray consistent with pneumonia. Patient also found to have clinical symptoms consistent with fluid overload. Patient admitted to medical floor and initiated on pneumonia protocol as well as coronavirus protocol. Nephrology team consulted in ED for urgent dialysis. Patient denies fever, chills, chest pain, palpitation, skin rash, recent ill contacts. Patient knowledges it is that it is probable that she may have been opposed to coronavirus. Patient is fully vaccinated against COVID-19. Prior admission on 08/28/2021 reviewed. All medication listed at time of admission has been reconciled. Advanced care planning conducted in ED. Past History Past Medical History: ESRD, hypertension, other (See HPI) Past Surgical History: Other (Dialysis access) Social history: single. denies: smoking, alcohol abuse, prescription drug abuse Family history: hypertension Medications and Allergies Allergies Allergy/AdvReac Type Severity Reaction Status Date / Time lisinopril AdvReac Itching Verified 09/11/21 09:45 Penicillins AdvReac Hives Verified 09/11/21 09:45 Home Medications Medication Instructions Recorded Confirmed Last Taken Type Losartan [Cozaar] 50 mg PO QDAY 08/29/21 08/29/21 08/27/21 History Multivitamin [Multiple Vitamins] 1 each PO QDAY 08/29/21 08/29/21 08/27/21 History carvediloL [Coreg] 3.125 mg PO BID 08/29/21 08/29/21 08/27/21 History carvediloL [Coreg] 3.125 mg PO BID tablet 08/30/21 Unknown Rx Active Meds: Active Medications Calcium Gluconate 1,000 mg/ (Sodium Chloride) 110 mls @ 660 mls/hr IV ONCE ONE Stop: 09/11/21 13:09 Review of Systems Constitutional: weakness, malaise, lethargy, no weight loss, no weight gain, no fever, no chills Ears, nose, mouth and throat: no ear pain, no tinnitis, no nose pain, no nasal congestion Breasts: no change in shape, no swelling, no mass Cardiovascular: shortness of breath, no chest pain, no orthopnea, no palpitations Respiratory: no cough, no cough with sputum, no excessive sputum Gastrointestinal: no nausea, no diarrhea, no constipation Genitourinary Female: no pelvic pain, no flank pain, no dysuria, no urinary frequency, no urgency Rectal: no pain, no incontinence, no bleeding Musculoskeletal: no neck stiffness, no neck pain, no arm numbness/tingling, no shooting leg pain, no leg numbness/tingling Integumentary: no rash, no pruritis, no redness, no sores, no jaundice Neurological: no head injury, no parathesias, no tingling, no seizures, no syncope Psychiatric: no anxiety, no change in sleep habits, no insomnia Endocrine: no cold intolerance, no excessive thirst, no polyuria, no nocturia, no excessive sweating Hematologic/Lymphatic: no easy bruising, no lymphadenopathy Allergic/Immunologic: no urticaria, no allergic rhinitis, no wheezing, no persistent infections, no angioedema Exam - Constitutional Vitals: Temp Pulse Resp BP Pulse Ox 97.7 F 93 H 20 164/97 94 09/11/21 09:48 09/11/21 09:48 09/11/21 09:48 09/11/21 09:48 09/11/21 11:50 General appearance: Present: mild distress, obese - EENT Eyes: Present: PERRL ENT: clear oral mucosa, hearing decreased - Neck Neck: Present: supple, normal ROM - Respiratory Respiratory effort: normal, labored, accessory muscle use Respiratory: bilateral: diminished, rhonchi - Cardiovascular Heart Sounds: Present: S1 & S2. Absent: rub, click - Extremities Extremities: pulses symmetrical, No edema Peripheral Pulses: within normal limits - Abdominal General gastrointestinal: Present: soft, non-tender, non-distended, normal bowel sounds Female genitourinary: Present: normal - Integumentary Integumentary: Present: clear, warm, dry - Musculoskeletal Musculoskeletal: generalized weakness - Psychiatric Psychiatric: appropriate mood/affect, intact judgment & insight - Neurologic Neurologic: CNII-XII intact, moves all extremities HEART Score - HEART Score Troponin: Troponin T 0.147 ng/mL (0.00-0.029) H* 09/11/21 11:04 Results - Labs CBC & Chem 7: 09/11/21 10:54 09/11/21 11:04 Labs: Abnormal lab results 09/11/21 09/11/21 09/11/21 Range/Units 10:54 10:54 11:04 WBC 4.3 L (4.5-11.0) K/mm3 MCH 27 L (28-32) pg RDW 17.6 H (13.2-15.2) % D-Dimer 1601.01 H (0-234) ng/mlDDU Potassium 5.7 H (3.6-5.0) mmol/L BUN 92 H (7-17) mg/dL Creatinine 9.4 H (0.6-1.2) mg/dL Glucose 110 H (65-100) mg/dL Calcium 8.0 L (8.4-10.2) mg/dL Ferritin (10.0-200.0) ng/mL AST 50 H (5-40) units/L ALT 63 H (7-56) units/L Lactate Dehydrogenase (91-180) units/L Troponin T (0.00-0.029) ng/mL C-Reactive Protein (0.00-1.30) mg/dL Albumin 3.7 L (3.9-5) g/dL HDL Cholesterol (40-59) mg/dL 09/11/21 09/11/21 Range/Units 11:04 11:04 WBC (4.5-11.0) K/mm3 MCH (28-32) pg RDW (13.2-15.2) % D-Dimer (0-234) ng/mlDDU Potassium (3.6-5.0) mmol/L BUN (7-17) mg/dL Creatinine (0.6-1.2) mg/dL Glucose 111 H (65-100) mg/dL Calcium (8.4-10.2) mg/dL Ferritin 1021.0 H (10.0-200.0) ng/mL AST (5-40) units/L ALT (7-56) units/L Lactate Dehydrogenase 273 H (91-180) units/L Troponin T 0.147 H* (0.00-0.029) ng/mL C-Reactive Protein 2.40 H (0.00-1.30) mg/dL Albumin (3.9-5) g/dL HDL Cholesterol 37 L (40-59) mg/dL Assessment and Plan - Patient Problems (1) Acute hypoxemic respiratory failure Current Visit: Yes Status: Acute Plan to address problem: Supplemental oxygen, pulse oximetry, nebulizer therapy, pulmonary toilet, will consider high flow supplemental oxygen if patient is unable to maintain pulse oximetry on supplemental oxygen via nasal cannula. (2) Pneumonia Current Visit: Yes Status: Acute Plan to address problem: Pneumonia protocol: Chest x-ray, CBC, CMP, CMP, supplemental oxygen, pulse ox imetry, IV antibiotic therapy. (3) End stage renal disease Current Visit: Yes Status: Acute Plan to address problem: Nephrology team consulted in ED for urgent dialysis. Dialysis as per renal team. (4) Suspected 2019 novel coronavirus infection Current Visit: Yes Status: Acute Plan to address problem: Coronavirus protocol: IV antibiotic therapy, IV steroid therapy, vitamin C therapy, vitamin D therapy, zinc therapy, supplemental oxygen, pulse oximetry. (5) Fluid overload Current Visit: Yes Status: Acute Plan to address problem: Dialysis as per renal team, supportive care, chest x-ray. Monitor fluid brittney nce. (6) DVT prophylaxis Current Visit: Yes Status: Acute Plan to address problem: SCD to bilateral lower extremities while in bed, prophylactic anticoagulation (7) Advance care planning Current Visit: Yes Status: Acute Plan to address problem: Disease education conducted, care plan discussed, diagnosis discussed, prognosis discussed, patient is full code. Patient acknowledges understanding and agreement with care plan, +30 minutes.
[2021-09-11 12:17] LABS: Anisocytosis Few; Ovalocytes 1+; Platelet Estimate Consistent w Auto; Schistocytes Few; Target Cells 1+
[2021-09-11 12:19] LABS: Basophils % (Manual) 0 % (0.0-1.8); Eosinophils % (Manual) 0 % (0.0-4.3); Total Cells Counted 100
[2021-09-11] MEDS ORDERED: CALCIUM GLUCONATE 1,000 MG in SODIUM CHLORIDE 0.9% 100 ML IV ONE (13:00)
[2021-09-11] MEDS ORDERED: SODIUM CHLORIDE 0.9% 100 ML IV PRN (14:00)
[2021-09-11] MEDS: CHOLECALCIFEROL (VIT D3) 1000 UNIT (25 mcg) TAB PO SCH (19:20)
[2021-09-11] MEDS: methylPREDNISolone Sod Succinate 40 MG/1 ML INJ IV SCH ×2 (19:20→21:40)
[2021-09-11] MEDS: carvediloL 3.125 MG TAB PO SCH (21:39)
[2021-09-11] MEDS: ZINC SULFATE 220 MG CAP PO SCH (21:39)
[2021-09-11] MEDS: HEPARIN 5,000 UNIT/1 ML VIAL SUB-Q SCH (21:40)
[2021-09-11] MEDS: ASCORBIC ACID 500 MG TAB PO SCH (21:40)
[2021-09-12] MEDS: methylPREDNISolone Sod Succinate 40 MG/1 ML INJ IV SCH ×2 (06:04→14:11)
--- NOTE | 2021-09-12 09:37 | Consultation ---
History of Present Illness - Reason for Consult Consult date: 09/12/21 end stage renal disease - History of Present Illness Mrs. Corona is a 66yo with ESRD on HD, hypertension and HFrEF who presents to the ED with SOB. She last dialyzed on Saturday. She reports excessive interdialytic weight gains and reports gains as high as 5kg. She denies chest pain, cough, fever. Past History Past Medical History: ESRD, hypertension, other (See HPI) Past Surgical History: Other (Dialysis access) Social history: single. denies: smoking, alcohol abuse, prescription drug abuse Family history: hypertension Medications and Allergies Allergies Allergy/AdvReac Type Severity Reaction Status Date / Time lisinopril AdvReac Itching Verified 09/11/21 09:45 Penicillins AdvReac Hives Verified 09/11/21 09:45 Home Medications Medication Instructions Recorded Confirmed Last Taken Type Losartan [Cozaar] 50 mg PO QDAY 08/29/21 09/12/21 09/10/21 09:00 History Multivitamin [Multiple Vitamins] 1 each PO QDAY 08/29/21 09/12/21 09/10/21 09:00 History carvediloL [Coreg] 3.125 mg PO BID 08/29/21 09/12/21 09/10/21 21:00 History carvediloL [Coreg] 3.125 mg PO BID tablet 08/30/21 09/12/21 09/11/21 22:00 Rx Active Meds: Active Medications Acetaminophen (Acetaminophen 325 Mg Tab) 650 mg PO Q4H PRN PRN Reason: Pain MILD(1-3)/Fever >100.5/CURRY Albuterol (Albuterol 2.5 Mg/3 Ml Nebu) 2.5 mg IH Q4HRT PRN PRN Reason: Shortness Of Breath Ascorbic Acid (Ascorbic Acid 500 Mg Tab) 500 mg PO BID [facility] Last Admin: 09/11/21 21:40 Dose: 500 mg Carvedilol (Carvedilol 3.125 Mg Tab) 3.125 mg PO BID [facility] Last Admin: 09/11/21 21:39 Dose: 3.125 mg Cholecalciferol (Cholecalciferol (Vit D3) 1000 Unit (25 Mcg) Tab) 1,000 unit PO DAILY [facility] Last Admin: 09/11/21 19:20 Dose: Not Given Heparin Sodium (Porcine) (Heparin 5,000 Unit/1 Ml Vial) 5,000 unit SUB-Q Q12HR [facility] Last Admin: 09/11/21 21:40 Dose: 5,000 unit Hydromorphone HCl (Hydromorphone 1 Mg/1 Ml Inj) 0.5 mg IV Q23H PRN PRN Reason: Pain , Severe (7-10) Sodium Chloride (Nacl 0.9%) 100 mls @ 999 mls/hr IV KATHY PRN PRN Reason: Hypotension Levofloxacin/Dextrose (Levaquin 500mg/100ml) 500 mg in 100 mls @ 100 mls/hr IV Q48H [facility] Stop: 09/17/21 10:59 Losartan Potassium (Losartan 50 Mg Tab) 50 mg PO QDAY [facility] Methylprednisolone Sodium Succinate (Methylprednisolone Sod Succinate 40 Mg/1 Ml Inj) 40 mg IV Q8HR [facility] Last Admin: 09/12/21 06:04 Dose: 40 mg Multivitamins (Multivitamins ,Therapeutic Tab) 1 each PO DAILY [facility] Ondansetron HCl (Ondansetron 4 Mg/2 Ml Inj) 4 mg IV Q8H PRN PRN Reason: Nausea And Vomiting Oxycodone/Acetaminophen (Oxycodone /Acetaminophen 5-325mg Tab) 1 tab PO Q16H PRN PRN Reason: Pain, Moderate (4-6) Sodium Chloride (Sodium Chloride 0.9% 10 Ml Flush Syringe) 10 ml IV BID [facility] Last Admin: 09/11/21 21:54 Dose: 10 ml Sodium Chloride (Sodium Chloride 0.9% 10 Ml Flush Syringe) 10 ml IV PRN PRN PRN Reason: LINE FLUSH Zinc Sulfate (Zinc Sulfate 220 Mg Cap) 220 mg PO BID [facility] Last Admin: 09/11/21 21:39 Dose: 220 mg Review of Systems All systems: negative Exam - Vital Signs Vital signs: Vital Signs Temp Pulse Resp BP Pulse Ox 97.7 F 93 H 20 164/97 99 09/11/21 09:48 09/11/21 09:48 09/11/21 09:48 09/11/21 09:48 09/11/21 09:48 - General Appearance General appearance: well-developed, well-nourished EENT: ATNC Respiratory: Decreased Breath Sounds Heart: regular, S1S2 Gastrointestinal: Present: normal. Absent: tenderness, distended Integumentary: no rash Psychiatric: cooperative Results - Lab Results 09/12/21 09:40 09/12/21 18:00 Most recent lab results Calcium 8.0 mg/dL (8.4-10.2) L 09/11/21 10:54 Magnesium 2.10 mg/dL (1.7-2.3) 09/11/21 11:04 Assessment and Plan Impression: * End stage renal disease * Acute hypoxic respiratory failure secondary to pulmonary edema vs PNA * COVID 19 PUI * Azotemia * Hypertension * Type II diabetes mellitus * Anemia secondary to ESRD * Secondary hyperparathyroidism Plan: * Patient is s/p hemodialysis yesterday following admission * Will plan for isolated UF today for additional fluid removal due to hx of excessive interdialytic weight gain * Continue MWF schedule * Epogen TIW prn * Dose medications for renal function * Renal diet
[2021-09-12] MEDS ORDERED: NON-FORMULARY EACH (Multivitamin [Multiple Vitamins] 1 EACH Tablet) PO SCH (10:00)
[2021-09-12] MEDS ORDERED: CHOLECALCIFEROL (VIT D3) 400 UNIT TAB PO SCH (10:00)
[2021-09-12] MEDS: carvediloL 3.125 MG TAB PO SCH ×2 (10:06→21:29)
[2021-09-12] MEDS: LOSARTAN 50 MG TAB PO SCH (10:08)
[2021-09-12] MEDS: HEPARIN 5,000 UNIT/1 ML VIAL SUB-Q SCH ×2 (10:08→21:29)
[2021-09-12 10:25] LABS: Basophils % (Auto) 0.3 % (0.0-1.8); Hematocrit 29.7 % (30.3-42.9); Hemoglobin 9.4 gm/dl (10.1-14.3); Lymphocytes # (Auto) 0.5 K/mm3 (1.2-5.4); Lymphocytes % (Auto) 11.8 % (13.4-35.0); Mean Corpuscular HGB Conc 32 % (30-34); Mean Corpuscular Volume 87 fl (79-97); Monocytes # (Auto) 0.2 K/mm3 (0.0-0.8); Monocytes % (Auto) 5.4 % (0.0-7.3); Platelet Count 187 K/mm3 (140-440); Red Blood Count 3.43 M/mm3 (3.65-5.03); Red Cell Distribution Width 18.1 % (13.2-15.2)
[2021-09-12] MEDS ORDERED: SODIUM CHLORIDE 0.9% 100 ML IV PRN (10:39)
[2021-09-12 10:40] LABS: Blood Urea Nitrogen 52 mg/dL (7-17); Hemolysis Index 216
[2021-09-12 10:43] LABS: BUN/Creatinine Ratio 9
[2021-09-12] MEDS ORDERED: EMLA CREAM 5 GM TP ONE (12:30)
[2021-09-12] MEDS: ZINC SULFATE 220 MG CAP PO SCH ×2 (14:10→21:29)
--- NOTE | 2021-09-12 14:52 | Progress Note ---
Assessment and Plan Assessment and plan: #Acute hypoxic respiratory failure #Pneumonia -Requiring supplemental O2, will wean as tolerated -Chest x-ray with mild persistent interstitial edema -Procalcitonin 0.54; will continue Levaquin every 48 hours for CAP coverage -Etiologies include bacterial pneumonia versus COVID versus CHF exacerbation versus volume overload from missed HD #COVID-19 PUI -Coronavirus PCR collected, result pending -Continue empiric steroids, COVID vitamins #Elevated D-dimer -D-dimer 1601 -VQ scan ordered #Heart failure with reduced ejection fraction -TTE 09/16: LVEF 35-40% -NT proBNP greater than 70,000; elevation may be due to volume overload status, patient without clinical symptoms at this time -Patient followed with cardiology [id number], will need primary stores despatch hand here -Continue low-dose beta-nicola -Cardiology consulted, recs appreciated #NSTEMI -Troponin 0.147 -Likely type II due to ESRD #End-stage renal disease requiring hemodialysis -HD on MWF schedule outpatient -Nephrology following, assistance appreciated #Hyperkalemia -Potassium 5.7 -Expect improvement after HD today -will continue to monitor Disposition Plan: continue medical management History Interval history: No acute events. Patient reports feeling short of breath when walking to the bathroom. No other complaints at this time Hospitalist Physical - Physical exam Narrative exam: GENERAL: Well-developed well-nourished. Sitting on the side of the bed in no acute distress. HEENT: NC in place 2LNC NECK: Supple. CHEST/LUNGS: Expiratory crackles bilaterally. HEART/CARDIOVASCULAR: RRR. No murmur, rubs or gallops appreciated. ABDOMEN: +BS. NT/ND. SKIN: No rashes noted. NEURO: No focal motor deficit. Follows all commands and is ambulatory. MUSCULOSKELETAL: No joint effusion EXTREMITIES: No cyanosis, clubbing or edema. PSYCH: Cooperative. - Constitutional Vitals: Temp Pulse Resp BP Pulse Ox 97.3 F L 96 H 18 147/81 97 09/11/21 22:32 09/11/21 22:32 09/11/21 22:32 09/11/21 22:32 09/12/21 09:52 General appearance: Present: mild distress, obese HEART Score - HEART Score Troponin: Troponin T 0.147 ng/mL (0.00-0.029) H* 09/11/21 11:04 Results - Labs CBC & Chem 7: 09/12/21 09:40 09/14/21 09:53 Labs: Laboratory Last Values WBC 4.2 K/mm3 (4.5-11.0) L 09/12/21 09:40 RBC 3.43 M/mm3 (3.65-5.03) L 09/12/21 09:40 Hgb 9.4 gm/dl (10.1-14.3) L 09/12/21 09:40 Hct 29.7 % (30.3-42.9) L 09/12/21 09:40 MCV 87 fl (79-97) 09/12/21 09:40 MCH 27 pg (28-32) L 09/12/21 09:40 MCHC 32 % (30-34) 09/12/21 09:40 RDW 18.1 % (13.2-15.2) H 09/12/21 09:40 Plt Count 187 K/mm3 (140-440) 09/12/21 09:40 Lymph % (Auto) 11.8 % (13.4-35.0) L 09/12/21 09:40 [place] % (Auto) 5.4 % (0.0-7.3) 09/12/21 09:40 Eos % (Auto) 0.0 % (0.0-4.3) 09/12/21 09:40 Baso % (Auto) 0.3 % (0.0-1.8) 09/12/21 09:40 Lymph # (Auto) 0.5 K/mm3 (1.2-5.4) L 09/12/21 09:40 [place] # (Auto) 0.2 K/mm3 (0.0-0.8) 09/12/21 09:40 Eos # (Auto) 0.0 K/mm3 (0.0-0.4) 09/12/21 09:40 Baso # (Auto) 0.0 K/mm3 (0.0-0.1) 09/12/21 09:40 Add Manual Diff Complete 09/11/21 10:54 Total Counted 100 09/11/21 10:54 Seg Neutrophils % 82.5 % (40.0-70.0) H 09/12/21 09:40 Seg Neuts % (Manual) 81.0 % (40.0-70.0) H 09/11/21 10:54 Band Neutrophils % 0 % 09/11/21 10:54 Lymphocytes % (Manual) 11.0 % (13.4-35.0) L 09/11/21 10:54 Reactive Lymphs % (Man) 0 % 09/11/21 10:54 Monocytes % (Manual) 8.0 % (0.0-7.3) H 09/11/21 10:54 Eosinophils % (Manual) 0 % (0.0-4.3) 09/11/21 10:54 Basophils % (Manual) 0 % (0.0-1.8) 09/11/21 10:54 Metamyelocytes % 0 % 09/11/21 10:54 Myelocytes % 0 % 09/11/21 10:54 Promyelocytes % 0 % 09/11/21 10:54 Blast Cells % 0 % 09/11/21 10:54 Nucleated RBC % Not Reportable 09/11/21 10:54 Seg Neutrophils # 3.5 K/mm3 (1.8-7.7) 09/12/21 09:40 Seg Neutrophils # Man 3.5 K/mm3 (1.8-7.7) 09/11/21 10:54 Band Neutrophils # 0.0 K/mm3 09/11/21 10:54 Lymphocytes # (Manual) 0.5 K/mm3 (1.2-5.4) L 09/11/21 10:54 Abs React Lymphs (Man) 0.0 K/mm3 09/11/21 10:54 Monocytes # (Manual) 0.3 K/mm3 (0.0-0.8) 09/11/21 10:54 Eosinophils # (Manual) 0.0 K/mm3 (0.0-0.4) 09/11/21 10:54 Basophils # (Manual) 0.0 K/mm3 (0.0-0.1) 09/11/21 10:54 Metamyelocytes # 0.0 K/mm3 09/11/21 10:54 Myelocytes # 0.0 K/mm3 09/11/21 10:54 Promyelocytes # 0.0 K/mm3 09/11/21 10:54 Blast Cells # 0.0 K/mm3 09/11/21 10:54 WBC Morphology Not Reportable 09/11/21 10:54 Hypersegmented Neuts Not Reportable 09/11/21 10:54 Hyposegmented Neuts Not Reportable 09/11/21 10:54 Hypogranular Neuts Not Reportable 09/11/21 10:54 Smudge Cells Not Reportable 09/11/21 10:54 Toxic Granulation Not Reportable 09/11/21 10:54 Toxic Vacuolation Not Reportable 09/11/21 10:54 Dohle Bodies Not Reportable 09/11/21 10:54 Pelger-Huet Anomaly Not Reportable 09/11/21 10:54 Delta Rods Not Reportable 09/11/21 10:54 Platelet Estimate Consistent w auto 09/11/21 10:54 Clumped Platelets Not Reportable 09/11/21 10:54 Plt Clumps, EDTA Not Reportable 09/11/21 10:54 Large Platelets Not Reportable 09/11/21 10:54 Giant Platelets Not Reportable 09/11/21 10:54 Platelet Satelliting Not Reportable 09/11/21 10:54 Plt Morphology Comment Not Reportable 09/11/21 10:54 RBC Morphology Not Reportable 09/11/21 10:54 Dimorphic RBCs Not Reportable 09/11/21 10:54 Polychromasia Not Reportable 09/11/21 10:54 Hypochromasia Not Reportable 09/11/21 10:54 Poikilocytosis Not Reportable 09/11/21 10:54 Anisocytosis Few 09/11/21 10:54 Microcytosis Not Reportable 09/11/21 10:54 Macrocytosis Not Reportable 09/11/21 10:54 Spherocytes Not Reportable 09/11/21 10:54 Pappenheimer Bodies Not Reportable 09/11/21 10:54 Sickle Cells Not Reportable 09/11/21 10:54 Target Cells 1+ 09/11/21 10:54 Tear Drop Cells Not Reportable 09/11/21 10:54 Ovalocytes 1+ 09/11/21 10:54 Helmet Cells Not Reportable 09/11/21 10:54 [place] Bodies Not Reportable 09/11/21 10:54 [place] Rings Not Reportable 09/11/21 10:54 Fle[place] Cells Not Reportable 09/11/21 10:54 Bite Cells Not Reportable 09/11/21 10:54 Crenated Cell Not Reportable 09/11/21 10:54 Elliptocytes Not Reportable 09/11/21 10:54 Acanthocytes (Spur) Not Reportable 09/11/21 10:54 Rouleaux Not Reportable 09/11/21 10:54 Hemoglobin C Crystals Not Reportable 09/11/21 10:54 Schistocytes Few 09/11/21 10:54 Malaria parasites Not Reportable 09/11/21 10:54 [place] Bodies Not Reportable 09/11/21 10:54 Hem Pathologist Commnt No 09/11/21 10:54 PT 14.7 Sec. (12.2-14.9) 09/11/21 11:04 INR 1.04 (0.87-1.13) 09/11/21 11:04 D-Dimer 1601.01 ng/mlDDU (0-234) H 09/11/21 11:04 Sodium 136 mmol/L (137-145) L D 09/12/21 09:40 Potassium TNR 09/12/21 09:40 Chloride 94.3 mmol/L (98-107) L 09/12/21 09:40 Carbon Dioxide 23 mmol/L (22-30) 09/12/21 09:40 Anion Gap 26 mmol/L 09/12/21 09:40 BUN 52 mg/dL (7-17) H 09/12/21 09:40 Creatinine 5.9 mg/dL (0.6-1.2) H 09/12/21 09:40 Estimated GFR 9 ml/min 09/12/21 09:40 BUN/Creatinine Ratio 9 % 09/12/21 09:40 Glucose 207 mg/dL (65-100) H 09/12/21 09:40 Lactic Acid 1.70 mmol/L (0.7-2.0) 09/11/21 11:04 Calcium 8.0 mg/dL (8.4-10.2) L 09/12/21 09:40 Magnesium 2.10 mg/dL (1.7-2.3) 09/11/21 11:04 Ferritin 1021.0 ng/mL (10.0-200.0) H 09/11/21 11:04 Total Bilirubin 0.20 mg/dL (0.1-1.2) 09/11/21 10:54 AST 50 units/L (5-40) H 09/11/21 10:54 ALT 63 units/L (7-56) H 09/11/21 10:54 Alkaline Phosphatase 94 units/L (35-129) 09/11/21 10:54 Lactate Dehydrogenase 273 units/L (91-180) H 09/11/21 11:04 Troponin T 0.147 ng/mL (0.00-0.029) H* 09/11/21 11:04 C-Reactive Protein 2.40 mg/dL (0.00-1.30) H 09/11/21 11:04 NT-Pro-B Natriuret Pep > 14101 pg/mL (0-900) H 09/11/21 11:04 Total Protein 8.0 g/dL (6.3-8.2) 09/11/21 10:54 Albumin 3.7 g/dL (3.9-5) L 09/11/21 10:54 Albumin/Globulin Ratio 0.9 % 09/11/21 10:54 Triglycerides 105 mg/dL (2-149) 09/11/21 11:04 Cholesterol 125 mg/dL (50-199) 09/11/21 11:04 LDL Cholesterol Direct 74 mg/dL (50-130) 09/11/21 11:04 HDL Cholesterol 37 mg/dL (40-59) L 09/11/21 11:04 Cholesterol/HDL Ratio 3.37 % 09/11/21 11:04 Procalcitonin 0.54 ng/mL (<0.15) 09/11/21 11:04 Microbiology: Microbiology 09/11/21 11:04 Peripheral/Venous Blood Culture - Preliminary NO GROWTH AFTER 24 HOURS 09/11/21 11:04 Peripheral/Venous Blood Culture - Preliminary NO GROWTH AFTER 24 HOURS Vigil/IV: Voiding Method External Female Catheter Active Medications - Current Medications Current Medications: Generic Name Dose Route Start Last Admin Trade Name Freq PRN Reason Stop Dose Admin Acetaminophen 650 mg 09/11/21 12:15 Acetaminophen 325 Mg Tab PO Q4H PRN Pain MILD(1-3)/Fever >100.5/CURRY Albuterol 2.5 mg 09/11/21 12:15 Albuterol 2.5 Mg/3 Ml Nebu IH Q4HRT PRN Shortness Of Breath Ascorbic Acid 500 mg 09/11/21 22:00 09/11/21 21:40 Ascorbic Acid 500 Mg Tab PO 500 mg BID [facility] Administration Carvedilol 3.125 mg 09/11/21 22:00 09/11/21 21:39 Carvedilol 3.125 Mg Tab PO 3.125 mg BID TIFFANY Administration Cholecalciferol 1,000 unit 09/11/21 14:00 09/11/21 19:20 Cholecalciferol (Vit D3) 1000 Unit (25 Mcg) Tab PO Not Given DAILY [facility] Heparin Sodium (Porcine) 5,000 unit 09/11/21 22:00 09/11/21 21:40 Heparin 5,000 Unit/1 Ml Vial SUB-Q 5,000 unit Q12HR [facility] Administration Hydromorphone HCl 0.5 mg 09/11/21 12:15 Hydromorphone 1 Mg/1 Ml Inj IV Q23H PRN Pain , Severe (7-10) Levofloxacin/Dextrose 500 mg in 100 mls @ 100 mls/hr 09/12/21 09:00 Levaquin 500mg/100ml IV 09/17/21 10:59 Q48H [facility] Sodium Chloride 100 mls @ 999 mls/hr 09/12/21 10:39 Nacl 0.9% IV KATHY PRN Hypotension Losartan Potassium 50 mg 09/12/21 10:00 Losartan 50 Mg Tab PO QDAY [facility] Methylprednisolone Sodium Succinate 40 mg 09/11/21 14:00 09/12/21 06:04 Methylprednisolone Sod Succinate 40 Mg/1 Ml Inj IV 40 mg Q8HR [facility] Administration Multivitamins 1 each 09/12/21 10:00 Multivitamins ,Therapeutic Tab PO DAILY [facility] Ondansetron HCl 4 mg 09/11/21 12:15 Ondansetron 4 Mg/2 Ml Inj IV Q8H PRN Nausea And Vomiting Oxycodone/Acetaminophen 1 tab 09/11/21 12:15 Oxycodone /Acetaminophen 5-325mg Tab PO Q16H PRN Pain, Moderate (4-6) Sodium Chloride 10 ml 09/11/21 22:00 09/11/21 21:54 Sodium Chloride 0.9% 10 Ml Flush Syringe IV 10 ml BID [facility] Administration Sodium Chloride 10 ml 09/11/21 12:15 Sodium Chloride 0.9% 10 Ml Flush Syringe IV PRN PRN LINE FLUSH Zinc Sulfate 220 mg 09/11/21 22:00 09/11/21 21:39 Zinc Sulfate 220 Mg Cap PO 220 mg BID [facility] Administration
[2021-09-12] MEDS: MULTIVITAMINS ,THERAPEUTIC TAB PO SCH (15:09)
[2021-09-12] MEDS: CHOLECALCIFEROL (VIT D3) 1000 UNIT (25 mcg) TAB PO SCH (15:10)
[2021-09-12] MEDS: ASCORBIC ACID 500 MG TAB PO SCH ×2 (21:28→21:30)
[2021-09-12] MEDS ORDERED: predniSONE 50 MG TAB PO ONE (22:15)
[2021-09-13] MEDS: methylPREDNISolone Sod Succinate 40 MG/1 ML INJ IV SCH ×3 (00:07→09:12)
[2021-09-13] MEDS: ACETAMINOPHEN 325 MG TAB PO PRN ×2 (06:51→20:17)
[2021-09-13] MEDS: ASCORBIC ACID 500 MG TAB PO SCH ×2 (09:08→21:22)
[2021-09-13] MEDS: MULTIVITAMINS ,THERAPEUTIC TAB PO SCH (09:09)
[2021-09-13] MEDS: ZINC SULFATE 220 MG CAP PO SCH ×2 (09:09→21:22)
[2021-09-13] MEDS: CHOLECALCIFEROL (VIT D3) 1000 UNIT (25 mcg) TAB PO SCH (09:09)
[2021-09-13] MEDS: HEPARIN 5,000 UNIT/1 ML VIAL SUB-Q SCH ×2 (09:10→21:21)
[2021-09-13] MEDS: carvediloL 3.125 MG TAB PO SCH ×2 (09:14→21:22)
[2021-09-13] MEDS: LOSARTAN 50 MG TAB PO SCH (09:14)
[2021-09-13] MEDS ORDERED: SODIUM CHLORIDE 0.9% 100 ML IV PRN (10:03)
--- NOTE | 2021-09-13 10:04 | Progress Note ---
Assessment and Plan Impression: * End stage renal disease * Acute hypoxic respiratory failure secondary to pulmonary edema vs PNA --COVID 19 negative * Azotemia * Hypertension * Type II diabetes mellitus * Anemia secondary to ESRD * Secondary hyperparathyroidism Plan: * Hemodialysis today. UF as tolerated * Continue MWF schedule * Epogen TIW prn * Dose medications for renal function * Renal diet Subjective Date of service: 09/13/21 Interval history: Chart, vitals, labs reviewed. Objective - Vital Signs Vital signs: Vital Signs - 12hr 09/13/21 09/13/21 09/13/21 05:21 06:51 07:50 Temperature 97.5 F L Pulse Rate 84 Respiratory 20 19 18 Rate Blood Pressure 143/90 O2 Sat by Pulse 94 Oximetry 09/13/21 09:14 Temperature Pulse Rate 87 Respiratory Rate Blood Pressure 131/77 O2 Sat by Pulse Oximetry - General Appearance General appearance: well-developed, well-nourished EENT: ATNC Cardiology: regular, S1S2 Psychiatric: cooperative - Lab 09/12/21 09:40 09/13/21 12:22 Most recent lab results Calcium 8.0 mg/dL (8.4-10.2) L 09/12/21 09:40 Magnesium 2.10 mg/dL (1.7-2.3) 09/11/21 11:04 Medications & Allergies - Medications Allergies/Adverse Reactions: Allergies lisinopril Adverse Reaction (Verified 09/11/21 09:45) Itching Penicillins Adverse Reaction (Verified 09/11/21 09:45) Hives Home Medications: Home Medications Medication Instructions Recorded Confirmed Last Taken Type Losartan [Cozaar] 50 mg PO QDAY 08/29/21 09/12/21 09/10/21 09:00 History Multivitamin [Multiple Vitamins] 1 each PO QDAY 08/29/21 09/12/21 09/10/21 09:00 History carvediloL [Coreg] 3.125 mg PO BID 08/29/21 09/12/21 09/10/21 21:00 History carvediloL [Coreg] 3.125 mg PO BID tablet 08/30/21 09/12/21 09/11/21 22:00 Rx Active Medications: Generic Name Dose Route Start Last Admin Trade Name Freq PRN Reason Stop Dose Admin Acetaminophen 650 mg 09/11/21 12:15 09/13/21 06:51 Acetaminophen 325 Mg Tab PO 650 mg Q4H PRN Administration Pain MILD(1-3)/Fever >100.5/CURRY Albuterol 2.5 mg 09/11/21 12:15 Albuterol 2.5 Mg/3 Ml Nebu IH Q4HRT PRN Shortness Of Breath Ascorbic Acid 500 mg 09/11/21 22:00 09/13/21 09:08 Ascorbic Acid 500 Mg Tab PO 500 mg BID TIFFANY Administration Carvedilol 3.125 mg 09/11/21 22:00 09/13/21 09:14 Carvedilol 3.125 Mg Tab PO 3.125 mg BID TIFFANY Administration Cholecalciferol 1,000 unit 09/11/21 14:00 09/13/21 09:09 Cholecalciferol (Vit D3) 1000 Unit (25 Mcg) Tab PO 1,000 unit DAILY TIFFANY Administration Heparin Sodium (Porcine) 5,000 unit 09/11/21 22:00 09/13/21 09:10 Heparin 5,000 Unit/1 Ml Vial SUB-Q 5,000 unit Q12HR TIFFANY Administration Hydromorphone HCl 0.5 mg 09/11/21 12:15 Hydromorphone 1 Mg/1 Ml Inj IV Q23H PRN Pain , Severe (7-10) Levofloxacin/Dextrose 500 mg in 100 mls @ 100 mls/hr 09/12/21 09:00 09/12/21 13:00 Levaquin 500mg/100ml IV 09/17/21 10:59 100 mls/hr Q48H TIFFANY Administration Sodium Chloride 100 mls @ 999 mls/hr 09/12/21 10:39 Nacl 0.9% IV KATHY PRN Hypotension Losartan Potassium 50 mg 09/12/21 10:00 09/13/21 09:14 Losartan 50 Mg Tab PO 50 mg QDAY TIFFANY Administration Methylprednisolone Sodium Succinate 40 mg 09/13/21 08:00 09/13/21 09:12 Methylprednisolone Sod Succinate 40 Mg/1 Ml Inj IV 40 mg Q12H TIFFANY Administration Multivitamins 1 each 09/12/21 10:00 09/13/21 09:09 Multivitamins ,Therapeutic Tab PO 1 each DAILY TIFFANY Administration Ondansetron HCl 4 mg 09/11/21 12:15 Ondansetron 4 Mg/2 Ml Inj IV Q8H PRN Nausea And Vomiting Oxycodone/Acetaminophen 1 tab 09/11/21 12:15 Oxycodone /Acetaminophen 5-325mg Tab PO Q16H PRN Pain, Moderate (4-6) Sodium Chloride 10 ml 09/11/21 22:00 09/13/21 09:12 Sodium Chloride 0.9% 10 Ml Flush Syringe IV 10 ml BID TIFFANY Administration Sodium Chloride 10 ml 09/11/21 12:15 Sodium Chloride 0.9% 10 Ml Flush Syringe IV PRN PRN LINE FLUSH Zinc Sulfate 220 mg 09/11/21 22:00 09/13/21 09:09 Zinc Sulfate 220 Mg Cap PO 220 mg BID TIFFANY Administration
--- NOTE | 2021-09-13 11:29 | XRay Report ---
CHEST 1 VIEW INDICATION: needed prior to NM lung scan. COMPARISON: 09/11/2021 FINDINGS: Support devices: None. Heart: Mild cardiomegaly. Lungs/Pleura: There is poor inspiration. Mild central pulmonary venous congestion is suspected. No co nvincing pneumonia, large pleural effusion or pneumothorax. Additional findings: None. IMPRESSION: Mild cardiomegaly and pulmonary venous congestion. Signer Name: Bahman Miles Jr, MD Signed: 09/13/2021 11:25 AM Workstation Name: [id number]
[2021-09-13 13:16] LABS: Calcium 7.4 mg/dL (8.4-10.2)
--- NOTE | 2021-09-13 13:37 | Progress Note ---
Assessment and Plan Assessment and plan: #Acute hypoxic respiratory failure #Pneumonia -Requiring supplemental O2, will wean as tolerated -Home oxygen evaluation ordered -Chest x-ray with mild persistent interstitial edema -Procalcitonin 0.54; Levaquin discontinued due to prolonged QT -Etiologies include bacterial pneumonia versus COVID versus CHF exacerbation versus volume overload from missed HD #COVID-19 PUI -Coronavirus PCR negative -We will discontinue empiric steroids, COVID vitamins #Elevated D-dimer -D-dimer 1601 -VQ scan ordered, results pending #Prolonged QT -Prolonged QT seen on EKG -Will discontinue all QT prolonging agents including Levaquin -Cardiology managing #Heart failure with reduced ejection fraction -TTE 09/16: LVEF 35-40% -NT proBNP greater than 70,000; elevation may be due to volume overload status, patient without clinical symptoms at this time -Cardiology recommending stress test tomorrow for ischemic evaluation -Continue low-dose beta-nicola -Cardiology consulted, recs appreciated #NSTEMI -Troponin 0.147 -Likely type II due to ESRD #End-stage renal disease requiring hemodialysis -HD on MWF schedule outpatient -Nephrology following, assistance appreciated #Hyperkalemia -Potassium improved and again increased -Expect improvement after HD today -will continue to monitor Disposition Plan: Continue medical management History Interval history: No acute events overnight. Patient reports improvement in dyspnea. Complains about missing meals. Otherwise no complaints at this time. Hospitalist Physical - Physical exam Narrative exam: GENERAL: Well-developed well-nourished. Lying in bed, no acute distress. HEENT: NC in place 2LNC NECK: Supple. CHEST/LUNGS: Expiratory crackles bilaterally. HEART/CARDIOVASCULAR: RRR. No murmur, rubs or gallops appreciated. ABDOMEN: +BS. NT/ND. SKIN: No rashes noted. NEURO: No focal motor deficit. Follows all commands. MUSCULOSKELETAL: No joint effusion EXTREMITIES: No cyanosis, clubbing or edema. PSYCH: Cooperative. - Constitutional Vitals: Temp Pulse Resp BP Pulse Ox 97.5 F L 87 18 131/77 94 09/13/21 05:21 09/13/21 09:14 09/13/21 07:50 09/13/21 09:14 09/13/21 05:21 General appearance: Present: mild distress, obese HEART Score - HEART Score Troponin: Troponin T 0.147 ng/mL (0.00-0.029) H* 09/11/21 11:04 Results - Labs CBC & Chem 7: 09/12/21 09:40 09/14/21 09:53 Labs: Laboratory Last Values WBC 4.2 K/mm3 (4.5-11.0) L 09/12/21 09:40 RBC 3.43 M/mm3 (3.65-5.03) L 09/12/21 09:40 Hgb 9.4 gm/dl (10.1-14.3) L 09/12/21 09:40 Hct 29.7 % (30.3-42.9) L 09/12/21 09:40 MCV 87 fl (79-97) 09/12/21 09:40 MCH 27 pg (28-32) L 09/12/21 09:40 MCHC 32 % (30-34) 09/12/21 09:40 RDW 18.1 % (13.2-15.2) H 09/12/21 09:40 Plt Count 187 K/mm3 (140-440) 09/12/21 09:40 Lymph % (Auto) 11.8 % (13.4-35.0) L 09/12/21 09:40 Dixon % (Auto) 5.4 % (0.0-7.3) 09/12/21 09:40 Eos % (Auto) 0.0 % (0.0-4.3) 09/12/21 09:40 Baso % (Auto) 0.3 % (0.0-1.8) 09/12/21 09:40 Lymph # (Auto) 0.5 K/mm3 (1.2-5.4) L 09/12/21 09:40 Dixon # (Auto) 0.2 K/mm3 (0.0-0.8) 09/12/21 09:40 Eos # (Auto) 0.0 K/mm3 (0.0-0.4) 09/12/21 09:40 Baso # (Auto) 0.0 K/mm3 (0.0-0.1) 09/12/21 09:40 Add Manual Diff Complete 09/11/21 10:54 Total Counted 100 09/11/21 10:54 Seg Neutrophils % 82.5 % (40.0-70.0) H 09/12/21 09:40 Seg Neuts % (Manual) 81.0 % (40.0-70.0) H 09/11/21 10:54 Band Neutrophils % 0 % 09/11/21 10:54 Lymphocytes % (Manual) 11.0 % (13.4-35.0) L 09/11/21 10:54 Reactive Lymphs % (Man) 0 % 09/11/21 10:54 Monocytes % (Manual) 8.0 % (0.0-7.3) H 09/11/21 10:54 Eosinophils % (Manual) 0 % (0.0-4.3) 09/11/21 10:54 Basophils % (Manual) 0 % (0.0-1.8) 09/11/21 10:54 Metamyelocytes % 0 % 09/11/21 10:54 Myelocytes % 0 % 09/11/21 10:54 Promyelocytes % 0 % 09/11/21 10:54 Blast Cells % 0 % 09/11/21 10:54 Nucleated RBC % Not Reportable 09/11/21 10:54 Seg Neutrophils # 3.5 K/mm3 (1.8-7.7) 09/12/21 09:40 Seg Neutrophils # Man 3.5 K/mm3 (1.8-7.7) 09/11/21 10:54 Band Neutrophils # 0.0 K/mm3 09/11/21 10:54 Lymphocytes # (Manual) 0.5 K/mm3 (1.2-5.4) L 09/11/21 10:54 Abs React Lymphs (Man) 0.0 K/mm3 09/11/21 10:54 Monocytes # (Manual) 0.3 K/mm3 (0.0-0.8) 09/11/21 10:54 Eosinophils # (Manual) 0.0 K/mm3 (0.0-0.4) 09/11/21 10:54 Basophils # (Manual) 0.0 K/mm3 (0.0-0.1) 09/11/21 10:54 Metamyelocytes # 0.0 K/mm3 09/11/21 10:54 Myelocytes # 0.0 K/mm3 09/11/21 10:54 Promyelocytes # 0.0 K/mm3 09/11/21 10:54 Blast Cells # 0.0 K/mm3 09/11/21 10:54 WBC Morphology Not Reportable 09/11/21 10:54 Hypersegmented Neuts Not Reportable 09/11/21 10:54 Hyposegmented Neuts Not Reportable 09/11/21 10:54 Hypogranular Neuts Not Reportable 09/11/21 10:54 Smudge Cells Not Reportable 09/11/21 10:54 Toxic Granulation Not Reportable 09/11/21 10:54 Toxic Vacuolation Not Reportable 09/11/21 10:54 Dohle Bodies Not Reportable 09/11/21 10:54 Pelger-Huet Anomaly Not Reportable 09/11/21 10:54 Delta Rods Not Reportable 09/11/21 10:54 Platelet Estimate Consistent w auto 09/11/21 10:54 Clumped Platelets Not Reportable 09/11/21 10:54 Plt Clumps, EDTA Not Reportable 09/11/21 10:54 Large Platelets Not Reportable 09/11/21 10:54 Giant Platelets Not Reportable 09/11/21 10:54 Platelet Satelliting Not Reportable 09/11/21 10:54 Plt Morphology Comment Not Reportable 09/11/21 10:54 RBC Morphology Not Reportable 09/11/21 10:54 Dimorphic RBCs Not Reportable 09/11/21 10:54 Polychromasia Not Reportable 09/11/21 10:54 Hypochromasia Not Reportable 09/11/21 10:54 Poikilocytosis Not Reportable 09/11/21 10:54 Anisocytosis Few 09/11/21 10:54 Microcytosis Not Reportable 09/11/21 10:54 Macrocytosis Not Reportable 09/11/21 10:54 Spherocytes Not Reportable 09/11/21 10:54 Pappenheimer Bodies Not Reportable 09/11/21 10:54 Sickle Cells Not Reportable 09/11/21 10:54 Target Cells 1+ 09/11/21 10:54 Tear Drop Cells Not Reportable 09/11/21 10:54 Ovalocytes 1+ 09/11/21 10:54 Helmet Cells Not Reportable 09/11/21 10:54 [place] Bodies Not Reportable 09/11/21 10:54 [place] Rings Not Reportable 09/11/21 10:54 Yaima Cells Not Reportable 09/11/21 10:54 Bite Cells Not Reportable 09/11/21 10:54 Crenated Cell Not Reportable 09/11/21 10:54 Elliptocytes Not Reportable 09/11/21 10:54 Acanthocytes (Spur) Not Reportable 09/11/21 10:54 Rouleaux Not Reportable 09/11/21 10:54 Hemoglobin C Crystals Not Reportable 09/11/21 10:54 Schistocytes Few 09/11/21 10:54 Malaria parasites Not Reportable 09/11/21 10:54 Arcenio Bodies Not Reportable 09/11/21 10:54 Hem Pathologist Commnt No 09/11/21 10:54 PT 14.7 Sec. (12.2-14.9) 09/11/21 11:04 INR 1.04 (0.87-1.13) 09/11/21 11:04 D-Dimer 1601.01 ng/mlDDU (0-234) H 09/11/21 11:04 Sodium 135 mmol/L (137-145) L 09/13/21 12:22 Potassium 5.8 mmol/L (3.6-5.0) H 09/13/21 12:22 Chloride 93.9 mmol/L (98-107) L 09/13/21 12:22 Carbon Dioxide 24 mmol/L (22-30) 09/13/21 12:22 Anion Gap 23 mmol/L 09/13/21 12:22 BUN 75 mg/dL (7-17) H 09/13/21 12:22 Creatinine 7.3 mg/dL (0.6-1.2) H 09/13/21 12:22 Estimated GFR 7 ml/min 09/13/21 12:22 BUN/Creatinine Ratio 10 % 09/13/21 12:22 Glucose 117 mg/dL (65-100) H 09/13/21 12:22 Lactic Acid 1.70 mmol/L (0.7-2.0) 09/11/21 11:04 Calcium 7.4 mg/dL (8.4-10.2) L 09/13/21 12:22 Magnesium 2.10 mg/dL (1.7-2.3) 09/11/21 11:04 Ferritin 1021.0 ng/mL (10.0-200.0) H 09/11/21 11:04 Total Bilirubin 0.20 mg/dL (0.1-1.2) 09/11/21 10:54 AST 50 units/L (5-40) H 09/11/21 10:54 ALT 63 units/L (7-56) H 09/11/21 10:54 Alkaline Phosphatase 94 units/L (35-129) 09/11/21 10:54 Lactate Dehydrogenase 273 units/L (91-180) H 09/11/21 11:04 Troponin T 0.147 ng/mL (0.00-0.029) H* 09/11/21 11:04 C-Reactive Protein 2.40 mg/dL (0.00-1.30) H 09/11/21 11:04 NT-Pro-B Natriuret Pep > 90542 pg/mL (0-900) H 09/11/21 11:04 Total Protein 8.0 g/dL (6.3-8.2) 09/11/21 10:54 Albumin 3.7 g/dL (3.9-5) L 09/11/21 10:54 Albumin/Globulin Ratio 0.9 % 09/11/21 10:54 Triglycerides 105 mg/dL (2-149) 09/11/21 11:04 Cholesterol 125 mg/dL (50-199) 09/11/21 11:04 LDL Cholesterol Direct 74 mg/dL (50-130) 09/11/21 11:04 HDL Cholesterol 37 mg/dL (40-59) L 09/11/21 11:04 Cholesterol/HDL Ratio 3.37 % 09/11/21 11:04 Procalcitonin 0.54 ng/mL (<0.15) 09/11/21 11:04 Coronavirus (PCR) Negative (Negative) 09/12/21 Unknown Microbiology: Microbiology 09/11/21 11:04 Peripheral/Venous Blood Culture - Preliminary NO GROWTH AFTER 24 HOURS 09/11/21 11:04 Peripheral/Venous Blood Culture - Preliminary NO GROWTH AFTER 24 HOURS Vigil/IV: Voiding Method Bedpan Active Medications - Current Medications Current Medications: Generic Name Dose Route Start Last Admin Trade Name Freq PRN Reason Stop Dose Admin Acetaminophen 650 mg 09/11/21 12:15 09/13/21 06:51 Acetaminophen 325 Mg Tab PO 650 mg Q4H PRN Administration Pain MILD(1-3)/Fever >100.5/CURRY Albuterol 2.5 mg 09/11/21 12:15 Albuterol 2.5 Mg/3 Ml Nebu IH Q4HRT PRN Shortness Of Breath Ascorbic Acid 500 mg 09/11/21 22:00 09/13/21 09:08 Ascorbic Acid 500 Mg Tab PO 500 mg BID TIFFANY Administration Carvedilol 3.125 mg 09/11/21 22:00 09/13/21 09:14 Carvedilol 3.125 Mg Tab PO 3.125 mg BID TIFFANY Administration Cholecalciferol 1,000 unit 09/11/21 14:00 09/13/21 09:09 Cholecalciferol (Vit D3) 1000 Unit (25 Mcg) Tab PO 1,000 unit DAILY TIFFANY Administration Heparin Sodium (Porcine) 5,000 unit 09/11/21 22:00 09/13/21 09:10 Heparin 5,000 Unit/1 Ml Vial SUB-Q 5,000 unit Q12HR TIFFANY Administration Hydromorphone HCl 0.5 mg 09/11/21 12:15 Hydromorphone 1 Mg/1 Ml Inj IV Q23H PRN Pain , Severe (7-10) Levofloxacin/Dextrose 500 mg in 100 mls @ 100 mls/hr 09/12/21 09:00 09/12/21 13:00 Levaquin 500mg/100ml IV 09/17/21 10:59 100 mls/hr Q48H TIFFANY Administration Sodium Chloride 100 mls @ 999 mls/hr 09/13/21 10:03 Nacl 0.9% IV KATHY PRN Hypotension Losartan Potassium 50 mg 09/12/21 10:00 09/13/21 09:14 Losartan 50 Mg Tab PO 50 mg QDAY TIFFANY Administration Methylprednisolone Sodium Succinate 40 mg 09/13/21 08:00 09/13/21 09:12 Methylprednisolone Sod Succinate 40 Mg/1 Ml Inj IV 40 mg Q12H TIFFANY Administration Multivitamins 1 each 09/12/21 10:00 09/13/21 09:09 Multivitamins ,Therapeutic Tab PO 1 each DAILY TIFFANY Administration Ondansetron HCl 4 mg 09/11/21 12:15 Ondansetron 4 Mg/2 Ml Inj IV Q8H PRN Nausea And Vomiting Oxycodone/Acetaminophen 1 tab 09/11/21 12:15 Oxycodone /Acetaminophen 5-325mg Tab PO Q16H PRN Pain, Moderate (4-6) Sodium Chloride 10 ml 09/11/21 22:00 09/13/21 09:12 Sodium Chloride 0.9% 10 Ml Flush Syringe IV 10 ml BID TIFFANY Administration Sodium Chloride 10 ml 09/11/21 12:15 Sodium Chloride 0.9% 10 Ml Flush Syringe IV PRN PRN LINE FLUSH Zinc Sulfate 220 mg 09/11/21 22:00 09/13/21 09:09 Zinc Sulfate 220 Mg Cap PO 220 mg BID TIFFANY Administration
--- NOTE | 2021-09-13 13:43 | Consultation ---
History of Present Illness Consult date: 09/13/21 Requesting physician: GARETH CAMPBELL Consult reason: congestive heart failure History of present illness: Patient is 66-year-old female with a past medical history of end-stage renal disease on hemodialysis, hypertension, HFrEF, and obesity who presented to the ED with a complaint of shortness of breath x1 day prior to admission on 09/11/2021. Patient was found to be hypoxic, volume overloaded, and to have pneumonia. At time of interview patient denies chest pain, palpitations, orthopnea, lightheadedness, nausea, vomiting or diaphoresis. 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 She wished to establish care with the cardiology team here in [place]. Patient is previously unknown to our practice. Cardiology is consulted for CHF and establishment of care. Past History Past Medical History: ESRD, heart failure, hypertension, other (See HPI) Past Surgical History: Other (Dialysis access) Social history: single. denies: smoking, alcohol abuse, prescription drug abuse Family history: hypertension Medications and Allergies Allergies Allergy/AdvReac Type Severity Reaction Status Date / Time lisinopril AdvReac Itching Verified 09/11/21 09:45 Penicillins AdvReac Hives Verified 09/11/21 09:45 Home Medications Medication Instructions Recorded Confirmed Last Taken Type Losartan [Cozaar] 50 mg PO QDAY 08/29/21 09/12/21 09/10/21 09:00 History Multivitamin [Multiple Vitamins] 1 each PO QDAY 08/29/21 09/12/21 09/10/21 09:00 History carvediloL [Coreg] 3.125 mg PO BID 08/29/21 09/12/21 09/10/21 21:00 History carvediloL [Coreg] 3.125 mg PO BID tablet 08/30/21 09/12/21 09/11/21 22:00 Rx Active Meds: Active Medications Acetaminophen (Acetaminophen 325 Mg Tab) 650 mg PO Q4H PRN PRN Reason: Pain MILD(1-3)/Fever >100.5/CURRY Last Admin: 09/13/21 06:51 Dose: 650 mg Albuterol (Albuterol 2.5 Mg/3 Ml Nebu) 2.5 mg IH Q4HRT PRN PRN Reason: Shortness Of Breath Ascorbic Acid (Ascorbic Acid 500 Mg Tab) 500 mg PO BID [facility] Last Admin: 09/13/21 09:08 Dose: 500 mg Carvedilol (Carvedilol 3.125 Mg Tab) 3.125 mg PO BID [facility] Last Admin: 09/13/21 09:14 Dose: 3.125 mg Cholecalciferol (Cholecalciferol (Vit D3) 1000 Unit (25 Mcg) Tab) 1,000 unit PO DAILY [facility] Last Admin: 09/13/21 09:09 Dose: 1,000 unit Heparin Sodium (Porcine) (Heparin 5,000 Unit/1 Ml Vial) 5,000 unit SUB-Q Q12HR [facility] Last Admin: 09/13/21 09:10 Dose: 5,000 unit Hydromorphone HCl (Hydromorphone 1 Mg/1 Ml Inj) 0.5 mg IV Q23H PRN PRN Reason: Pain , Severe (7-10) Levofloxacin/Dextrose (Levaquin 500mg/100ml) 500 mg in 100 mls @ 100 mls/hr IV Q48H [facility] Stop: 09/17/21 10:59 Last Admin: 09/12/21 13:00 Dose: 100 mls/hr Sodium Chloride (Nacl 0.9%) 100 mls @ 999 mls/hr IV KATHY PRN PRN Reason: Hypotension Losartan Potassium (Losartan 50 Mg Tab) 50 mg PO QDAY [facility] Last Admin: 09/13/21 09:14 Dose: 50 mg Methylprednisolone Sodium Succinate (Methylprednisolone Sod Succinate 40 Mg/1 Ml Inj) 40 mg IV Q12H [facility] Last Admin: 09/13/21 09:12 Dose: 40 mg Multivitamins (Multivitamins ,Therapeutic Tab) 1 each PO DAILY [facility] Last Admin: 09/13/21 09:09 Dose: 1 each Ondansetron HCl (Ondansetron 4 Mg/2 Ml Inj) 4 mg IV Q8H PRN PRN Reason: Nausea And Vomiting Oxycodone/Acetaminophen (Oxycodone /Acetaminophen 5-325mg Tab) 1 tab PO Q16H PRN PRN Reason: Pain, Moderate (4-6) Sodium Chloride (Sodium Chloride 0.9% 10 Ml Flush Syringe) 10 ml IV BID [facility] Last Admin: 09/13/21 09:12 Dose: 10 ml Sodium Chloride (Sodium Chloride 0.9% 10 Ml Flush Syringe) 10 ml IV PRN PRN PRN Reason: LINE FLUSH Zinc Sulfate (Zinc Sulfate 220 Mg Cap) 220 mg PO BID TIFFANY Last Admin: 09/13/21 09:09 Dose: 220 mg Review of Systems Constitutional: no weight loss, no weight gain Ears, nose, mouth and throat: no decreased hearing, no nose pain, no nasal congestion, no nasal discharge Cardiovascular: shortness of breath, dyspnea on exertion, no chest pain, no orthopnea, no palpitations Respiratory: shortness of breath, dyspnea on exertion, no cough with sputum, no excessive sputum Gastrointestinal: no abdominal pain, no nausea, no vomiting Musculoskeletal: no neck stiffness, no neck pain, no shooting arm pain Integumentary: no rash, no pruritis, no redness Neurological: no paralysis, no weakness, no parathesias Psychiatric: no anxiety, no memory loss Endocrine: no cold intolerance, no heat intolerance Hematologic/Lymphatic: no easy bruising, no easy bleeding Physical Examination Vital Signs Temp Pulse Resp BP Pulse Ox 97.7 F 93 H 20 164/97 99 09/11/21 09:48 09/11/21 09:48 09/11/21 09:48 09/11/21 09:48 09/11/21 09:48 General appearance: no acute distress HEENT: Positive: PERRL, Normocephaly Neck: Positive: trachea midline Cardiac: Positive: Reg Rate and Rhythm Lungs: Positive: Decreased Breath Sounds Neuro: Positive: Grossly Intact Abdomen: Positive: Soft Skin: Negative: Rash, Suspicious Lesions, Ulceration Extremities: Present: upper extr. pulses, edema Results 09/12/21 09:40 09/13/21 12:22 Comprehensive Metabolic Panel 09/12/21 09/13/21 Range/Units 18:00 12:22 Sodium 135 L (137-145) mmol/L Potassium 5.0 5.8 H (3.6-5.0) mmol/L Chloride 93.9 L (98-107) mmol/L Carbon Dioxide 24 (22-30) mmol/L BUN 75 H (7-17) mg/dL Creatinine 7.3 H (0.6-1.2) mg/dL Glucose 117 H (65-100) mg/dL Calcium 7.4 L (8.4-10.2) mg/dL - Imaging and Cardiology Echo: report reviewed EKG interpretations - Telemetry EKG Rhythm: Sinus Rhythm - EKG Sinus rhythms and dysrhythmias: sinus rhythm Repolarization changes or abnormalities: Q-T interval prolongation Assessment and Plan Patient is 66-year-old female with a past medical history of end-stage renal disease on hemodialysis, hypertension, obesity who presented to the ED with a complaint of shortness of breath x1 day prior to admission on 09/11/2021 NSTEMI-suspect type 2 ESRD on HD-nephrology following Acute hypoxic respiratory failure Acute on Chronic HFrEF Volume Overload PNA Prolong QT interval Cardiomyopathy Elevated D-dimer HTN Echo 08/29/2021-EF 35 to 40%. Moderate global hypokinesis of left ventricle. Right ventricle is mildly dilated. Right ventricle is mildly hypokinetic. Right atrium is mildly dilated. Atrial septal aneurysm is present. Left atrium is severely dilated. Mild to moderate aortic stenosis. Mild pulmonic regurgitation Plan: EKG shows sinus rhythm 84 with LVH and prolonged QT interval. No acute ischemic changes. Troponins noted to be elevated 0.14 Patient denies any chest pain. Troponins also elevated in setting of end-stage renal disease and volume overload. Suspect NSTEMI type II Agree with Coreg and losartan Patient had a VQ scan today due to elevated D-dimer unable to do stress test tomorrow. We will plan for Lexiscan stress test on Saturday Patient has prolonged QT interval recommend holding QT prolonging agents such as Levaquin Repeat EKG pending Patient seen in conjunction with Dr. Ballesteros who agrees with this plan of care - Patient Problems (1) NSTEMI (non-ST elevated myocardial infarction) Current Visit: Yes Status: Acute (2) HFrEF (heart failure with reduced ejection fraction) Current Visit: Yes Status: Acute (3) Cardiomyopathy Current Visit: Yes Status: Acute (4) Prolonged QT interval Current Visit: Yes Status: Acute (5) Acute hypoxemic respiratory failure Current Visit: Yes Status: Acute (6) End stage renal disease Current Visit: Yes Status: Acute (7) Fluid overload Current Visit: Yes Status: Acute (8) Hyperkalemia Current Visit: Yes Status: Acute (9) Metabolic acidosis Current Visit: Yes Status: Acute (10) Pneumonia Current Visit: Yes Status: Acute (11) Anemia in CKD (chronic kidney disease) Current Visit: No Status: Chronic Qualifiers: Chronic kidney disease stage: on chronic dialysis Qualified Code(s): N18.6 - End stage renal disease; D63.1 - Anemia in chronic kidney disease; Z99.2 - Dependence on renal dialysis
--- NOTE | 2021-09-13 13:50 | Nuclear Medicine Report ---
NUCLEAR MEDICINE PERFUSION SCAN INDICATION: shortness of breath CORRELATION: AP chest performed earlier today RADIOPHARMACEUTICAL: Perfusion: 5.3 mCi Tc-99m MAA given IV FINDINGS: The perfusion images demonstrate a moderate to large perfusion defect throughout the right upper lobe . There is homogeneous distribution of radiotracer throughout the remainder of the lungs. The cardiac silhouette is enlarged. IMPRESSION: Low to intermediate probability perfusion scan for pulmonary embolism. A large perfusion defect is i dentified in the right upper lobe without obvious corresponding radiographic abnormality. Consider fu rther evaluation with CTA chest. Signer Name: Bahman Miles Jr, MD Signed: 09/13/2021 1:46 PM Workstation Name: [id number]
[2021-09-14] MEDS: methylPREDNISolone Sod Succinate 40 MG/1 ML INJ IV SCH ×2 (00:49→11:09)
--- NOTE | 2021-09-14 08:01 | Progress Note ---
Assessment and Plan Impression: * End stage renal disease * Acute hypoxic respiratory failure secondary to pulmonary edema vs PNA --COVID 19 negative * Pulmonary edema * Azotemia * Hypertension * Type II diabetes mellitus * Anemia secondary to ESRD * Secondary hyperparathyroidism Plan: * Patient is s/p HD on Saturday and UF on Saturday * She refused dialysis yesterday - note K 5.8 yesterday. STAT BMP ordered * CXR with pulmonary venous congestions * V/Q scan reviewed - low-int prob for PE; large perfusion defect RUL; would benefit from CTA * Continue MWF schedule * Epogen TIW prn * Dose medications for renal function * Renal diet * Discussed need for compliance with medical care Subjective Date of service: 09/14/21 Interval history: Patient without new complaints Objective - Vital Signs Vital signs: Vital Signs - 12hr 09/13/21 09/13/21 09/13/21 20:17 21:00 21:17 Temperature Pulse Rate Respiratory 17 17 Rate Blood Pressure Blood Pressure [Left] O2 Sat by Pulse 97 Oximetry 09/13/21 09/13/21 09/14/21 21:19 21:22 05:33 Temperature 97.3 F L 97.9 F Pulse Rate 92 H 92 H 82 Respiratory 18 20 Rate Blood Pressure 142/85 142/80 Blood Pressure 142/85 [Left] O2 Sat by Pulse 97 98 Oximetry - General Appearance General appearance: well-developed, well-nourished EENT: ATNC Respiratory: Present: Decreased Breath Sounds Cardiology: regular, S1S2 Gastrointestinal: normal, no tenderness, no distended Integumentary: no rash, warm and dry Neurologic: alert and oriented x3 - Lab 09/12/21 09:40 09/14/21 09:53 Most recent lab results Calcium 7.4 mg/dL (8.4-10.2) L 09/13/21 12:22 Magnesium 2.10 mg/dL (1.7-2.3) 09/11/21 11:04 Medications & Allergies - Medications Allergies/Adverse Reactions: Allergies lisinopril Adverse Reaction (Verified 09/11/21 09:45) Itching Penicillins Adverse Reaction (Verified 09/11/21 09:45) Hives Home Medications: Home Medications Medication Instructions Recorded Confirmed Last Taken Type Losartan [Cozaar] 50 mg PO QDAY 08/29/21 09/12/21 09/10/21 09:00 History Multivitamin [Multiple Vitamins] 1 each PO QDAY 08/29/21 09/12/21 09/10/21 09:00 History carvediloL [Coreg] 3.125 mg PO BID 08/29/21 09/12/21 09/10/21 21:00 History carvediloL [Coreg] 3.125 mg PO BID tablet 08/30/21 09/12/21 09/11/21 22:00 Rx Active Medications: Generic Name Dose Route Start Last Admin Trade Name Freq PRN Reason Stop Dose Admin Acetaminophen 650 mg 09/11/21 12:15 09/13/21 20:17 Acetaminophen 325 Mg Tab PO 650 mg Q4H PRN Administration Pain MILD(1-3)/Fever >100.5/CURRY Albuterol 2.5 mg 09/11/21 12:15 Albuterol 2.5 Mg/3 Ml Nebu IH Q4HRT PRN Shortness Of Breath Ascorbic Acid 500 mg 09/11/21 22:00 09/13/21 21:22 Ascorbic Acid 500 Mg Tab PO 500 mg BID TIFFANY Administration Carvedilol 3.125 mg 09/11/21 22:00 09/13/21 21:22 Carvedilol 3.125 Mg Tab PO 3.125 mg BID TIFFANY Administration Cholecalciferol 1,000 unit 09/11/21 14:00 09/13/21 09:09 Cholecalciferol (Vit D3) 1000 Unit (25 Mcg) Tab PO 1,000 unit DAILY TIFFANY Administration Heparin Sodium (Porcine) 5,000 unit 09/11/21 22:00 09/13/21 21:21 Heparin 5,000 Unit/1 Ml Vial SUB-Q 5,000 unit Q12HR TIFFANY Administration Hydromorphone HCl 0.5 mg 09/11/21 12:15 Hydromorphone 1 Mg/1 Ml Inj IV Q23H PRN Pain , Severe (7-10) Sodium Chloride 100 mls @ 999 mls/hr 09/13/21 10:03 Nacl 0.9% IV KATHY PRN Hypotension Losartan Potassium 50 mg 09/12/21 10:00 09/13/21 09:14 Losartan 50 Mg Tab PO 50 mg QDAY TIFFANY Administration Methylprednisolone Sodium Succinate 40 mg 09/13/21 08:00 09/14/21 00:49 Methylprednisolone Sod Succinate 40 Mg/1 Ml Inj IV Not Given Q12H TIFFANY Multivitamins 1 each 09/12/21 10:00 09/13/21 09:09 Multivitamins ,Therapeutic Tab PO 1 each DAILY TIFFANY Administration Ondansetron HCl 4 mg 09/11/21 12:15 Ondansetron 4 Mg/2 Ml Inj IV Q8H PRN Nausea And Vomiting Oxycodone/Acetaminophen 1 tab 09/11/21 12:15 Oxycodone /Acetaminophen 5-325mg Tab PO Q16H PRN Pain, Moderate (4-6) Sodium Chloride 10 ml 09/11/21 22:00 09/13/21 21:23 Sodium Chloride 0.9% 10 Ml Flush Syringe IV 10 ml BID TIFFANY Administration Sodium Chloride 10 ml 09/11/21 12:15 Sodium Chloride 0.9% 10 Ml Flush Syringe IV PRN PRN LINE FLUSH Zinc Sulfate 220 mg 09/11/21 22:00 09/13/21 21:22 Zinc Sulfate 220 Mg Cap PO 220 mg BID TIFFANY Administration
[2021-09-14 10:25] LABS: Calcium 7.2 mg/dL (8.4-10.2)
[2021-09-14] MEDS: MULTIVITAMINS ,THERAPEUTIC TAB PO SCH (11:06)
[2021-09-14] MEDS: CHOLECALCIFEROL (VIT D3) 1000 UNIT (25 mcg) TAB PO SCH (11:06)
[2021-09-14] MEDS: ZINC SULFATE 220 MG CAP PO SCH (11:06)
[2021-09-14] MEDS: HEPARIN 5,000 UNIT/1 ML VIAL SUB-Q SCH ×2 (11:06→22:39)
[2021-09-14] MEDS: ASCORBIC ACID 500 MG TAB PO SCH (11:06)
[2021-09-14] MEDS: carvediloL 3.125 MG TAB PO SCH ×2 (11:07→22:38)
[2021-09-14] MEDS: LOSARTAN 50 MG TAB PO SCH (11:08)
--- NOTE | 2021-09-14 11:10 | Progress Note ---
Assessment and Plan Patient is 66-year-old female with a past medical history of end-stage renal disease on hemodialysis, hypertension, obesity who presented to the ED with a complaint of shortness of breath x1 day prior to admission on 09/11/2021 NSTEMI-suspect type 2 ESRD on HD-nephrology following Acute hypoxic respiratory failure Acute on Chronic HFrEF Volume Overload PNA Prolong QT interval Cardiomyopathy Elevated D-dimer HTN Echo 08/29/2021-EF 35 to 40%. Moderate global hypokinesis of left ventricle. Right ventricle is mildly dilated. Right ventricle is mildly hypokinetic. Right atrium is mildly dilated. Atrial septal aneurysm is present. Left atrium is severely dilated. Mild to moderate aortic stenosis. Mild pulmonic regurgitation Plan: Repeat EKG shows decreasing QT prolongation. Patient is off QT prolonging agents will order repeat EKG Continue Coreg and losartan Patient VQ scan showed abnormality with recommendation to have CT chest for confirmatory rule out of PE. We will plan for outpatient ischemic eval Patient seen in conjunction with Dr. Ballesteros who agrees with this plan of care - Patient Problems (1) NSTEMI (non-ST elevated myocardial infarction) Current Visit: Yes Status: Acute (2) HFrEF (heart failure with reduced ejection fraction) Current Visit: Yes Status: Acute (3) Cardiomyopathy Current Visit: Yes Status: Acute (4) Prolonged QT interval Current Visit: Yes Status: Acute (5) Acute hypoxemic respiratory failure Current Visit: Yes Status: Acute (6) End stage renal disease Current Visit: Yes Status: Acute (7) Fluid overload Current Visit: Yes Status: Acute (8) Hyperkalemia Current Visit: Yes Status: Acute (9) Metabolic acidosis Current Visit: Yes Status: Acute (10) Pneumonia Current Visit: Yes Status: Acute (11) Anemia in CKD (chronic kidney disease) Current Visit: No Status: Chronic Qualifiers: Chronic kidney disease stage: on chronic dialysis Qualified Code(s): N18.6 - End stage renal disease; D63.1 - Anemia in chronic kidney disease; Z99.2 - Dependence on renal dialysis Subjective Date of service: 09/14/21 Principal diagnosis: Acute Respiratory failure, Volume overload, Acute on chroninc HFrEF Interval history: Patient resting in bed in no acute distress. Patient reports feeling well Sinus 87 on monitor Objective Vital Signs Temp Pulse Resp BP BP Pulse Ox 09/14/21 05:33 97.9 F 82 20 142/80 98 01/19/22 21:22 92 H 142/85 09/13/21 21:19 97.3 F L 92 H 18 142/85 97 09/13/21 21:17 17 09/13/21 21:00 97 09/13/21 20:17 17 09/13/21 17:40 97.9 F 91 H 22 150/88 99 09/13/21 12:15 97.5 F L 84 22 148/91 96 - Physical Examination General: No Apparent Distress HEENT: Positive: PERRL, Normocephaly Neck: Positive: trachea midline Cardiac: Positive: Reg Rate and Rhythm Lungs: Positive: Decreased Breath Sounds Neuro: Positive: Grossly Intact Abdomen: Positive: Soft Skin: Negative: Rash, Suspicious Lesions, Ulceration Extremities: Present: upper extr. pulses, edema - Labs and Meds Comprehensive Metabolic Panel 09/13/21 09/14/21 Range/Units 12:22 09:53 Sodium 135 L 138 (137-145) mmol/L Potassium 5.8 H 4.8 (3.6-5.0) mmol/L Chloride 93.9 L 95.6 L (98-107) mmol/L Carbon Dioxide 24 20 L (22-30) mmol/L BUN 75 H 103 H (7-17) mg/dL Creatinine 7.3 H 7.6 H (0.6-1.2) mg/dL Glucose 117 H 184 H (65-100) mg/dL Calcium 7.4 L 7.2 L (8.4-10.2) mg/dL - Imaging and Cardiology Echo: report reviewed - Telemetry EKG Rhythm: Sinus Rhythm - EKG Sinus rhythms and dysrhythmias: sinus rhythm Repolarization changes or abnormalities: Q-T interval prolongation
--- NOTE | 2021-09-14 14:18 | Progress Note ---
Assessment and Plan Assessment and plan: #Acute hypoxic respiratory failure #Pneumonia -Requiring supplemental O2, will wean as tolerated -Home oxygen evaluation ordered -Chest x-ray with mild persistent interstitial edema -Hypoxia most likely due to volume overload from missed HD -Procalcitonin 0.54; rocephin and doxycycline started #COVID-19 PUI -Coronavirus PCR negative -We will discontinue empiric steroids, COVID vitamins #Elevated D-dimer -D-dimer 1601 -VQ scan showed low to intermediate probability for PE -CT angio of chest ordered to rule out PE; discussed with Nephrology #Prolonged QT interval -Prolonged QT seen on EKG -Will discontinue all QT prolonging agents including Levaquin -Cardiology managing #Heart failure with reduced ejection fraction -TTE 09/16: LVEF 35-40% -NT proBNP greater than 70,000; elevation may be due to volume overload status, patient without clinical symptoms at this time -Cardiology recommending stress test outpatient -Continue low-dose beta-nicola -Cardiology consulted, recs appreciated #NSTEMI -Troponin 0.147 -Likely type II due to ESRD #End-stage renal disease requiring hemodialysis -HD on MWF schedule outpatient -Patient refused dialysis yesterday -Nephrology following, assistance appreciated #Hyperkalemia -Potassium elevated -Expect improvement after HD -will continue to monitor Disposition Plan: Continue medical management History Interval history: Patient refused dialysis last night due to possibly missing dinner and hand cramping. Patient reporting shortness of breath at rest. No other complaints at this time. Hospitalist Physical - Physical exam Narrative exam: GENERAL: Well-developed well-nourished. Lying in bed, no acute distress. HEENT: NC in place 3LNC NECK: Supple. CHEST/LUNGS: Expiratory crackles bilaterally. HEART/CARDIOVASCULAR: RRR. No murmur, rubs or gallops appreciated. ABDOMEN: +BS. NT/ND. SKIN: No rashes noted. NEURO: No focal motor deficit. Follows all commands. MUSCULOSKELETAL: No joint effusion EXTREMITIES: No cyanosis, clubbing or edema. PSYCH: Cooperative. - Constitutional Vitals: Temp Pulse Resp BP Pulse Ox 97.0 F L 90 18 137/78 98 09/14/21 11:11 09/14/21 11:08 09/14/21 11:11 09/14/21 11:10 09/14/21 05:33 General appearance: Present: obese HEART Score - HEART Score Troponin: Troponin T 0.147 ng/mL (0.00-0.029) H* 09/11/21 11:04 Results - Labs CBC & Chem 7: 09/12/21 09:40 09/14/21 09:53 Labs: Laboratory Last Values WBC 4.2 K/mm3 (4.5-11.0) L 09/12/21 09:40 RBC 3.43 M/mm3 (3.65-5.03) L 09/12/21 09:40 Hgb 9.4 gm/dl (10.1-14.3) L 09/12/21 09:40 Hct 29.7 % (30.3-42.9) L 09/12/21 09:40 MCV 87 fl (79-97) 09/12/21 09:40 MCH 27 pg (28-32) L 09/12/21 09:40 MCHC 32 % (30-34) 09/12/21 09:40 RDW 18.1 % (13.2-15.2) H 09/12/21 09:40 Plt Count 187 K/mm3 (140-440) 09/12/21 09:40 Lymph % (Auto) 11.8 % (13.4-35.0) L 09/12/21 09:40 [place] % (Auto) 5.4 % (0.0-7.3) 09/12/21 09:40 Eos % (Auto) 0.0 % (0.0-4.3) 09/12/21 09:40 Baso % (Auto) 0.3 % (0.0-1.8) 09/12/21 09:40 Lymph # (Auto) 0.5 K/mm3 (1.2-5.4) L 09/12/21 09:40 [place] # (Auto) 0.2 K/mm3 (0.0-0.8) 09/12/21 09:40 Eos # (Auto) 0.0 K/mm3 (0.0-0.4) 09/12/21 09:40 Baso # (Auto) 0.0 K/mm3 (0.0-0.1) 09/12/21 09:40 Add Manual Diff Complete 09/11/21 10:54 Total Counted 100 09/11/21 10:54 Seg Neutrophils % 82.5 % (40.0-70.0) H 09/12/21 09:40 Seg Neuts % (Manual) 81.0 % (40.0-70.0) H 09/11/21 10:54 Band Neutrophils % 0 % 09/11/21 10:54 Lymphocytes % (Manual) 11.0 % (13.4-35.0) L 09/11/21 10:54 Reactive Lymphs % (Man) 0 % 09/11/21 10:54 Monocytes % (Manual) 8.0 % (0.0-7.3) H 09/11/21 10:54 Eosinophils % (Manual) 0 % (0.0-4.3) 09/11/21 10:54 Basophils % (Manual) 0 % (0.0-1.8) 09/11/21 10:54 Metamyelocytes % 0 % 09/11/21 10:54 Myelocytes % 0 % 09/11/21 10:54 Promyelocytes % 0 % 09/11/21 10:54 Blast Cells % 0 % 09/11/21 10:54 Nucleated RBC % Not Reportable 09/11/21 10:54 Seg Neutrophils # 3.5 K/mm3 (1.8-7.7) 09/12/21 09:40 Seg Neutrophils # Man 3.5 K/mm3 (1.8-7.7) 09/11/21 10:54 Band Neutrophils # 0.0 K/mm3 09/11/21 10:54 Lymphocytes # (Manual) 0.5 K/mm3 (1.2-5.4) L 09/11/21 10:54 Abs React Lymphs (Man) 0.0 K/mm3 09/11/21 10:54 Monocytes # (Manual) 0.3 K/mm3 (0.0-0.8) 09/11/21 10:54 Eosinophils # (Manual) 0.0 K/mm3 (0.0-0.4) 09/11/21 10:54 Basophils # (Manual) 0.0 K/mm3 (0.0-0.1) 09/11/21 10:54 Metamyelocytes # 0.0 K/mm3 09/11/21 10:54 Myelocytes # 0.0 K/mm3 09/11/21 10:54 Promyelocytes # 0.0 K/mm3 09/11/21 10:54 Blast Cells # 0.0 K/mm3 09/11/21 10:54 WBC Morphology Not Reportable 09/11/21 10:54 Hypersegmented Neuts Not Reportable 09/11/21 10:54 Hyposegmented Neuts Not Reportable 09/11/21 10:54 Hypogranular Neuts Not Reportable 09/11/21 10:54 Smudge Cells Not Reportable 09/11/21 10:54 Toxic Granulation Not Reportable 09/11/21 10:54 Toxic Vacuolation Not Reportable 09/11/21 10:54 Dohle Bodies Not Reportable 09/11/21 10:54 Pelger-Huet Anomaly Not Reportable 09/11/21 10:54 Delta Rods Not Reportable 09/11/21 10:54 Platelet Estimate Consistent w auto 09/11/21 10:54 Clumped Platelets Not Reportable 09/11/21 10:54 Plt Clumps, EDTA Not Reportable 09/11/21 10:54 Large Platelets Not Reportable 09/11/21 10:54 Giant Platelets Not Reportable 09/11/21 10:54 Platelet Satelliting Not Reportable 09/11/21 10:54 Plt Morphology Comment Not Reportable 09/11/21 10:54 RBC Morphology Not Reportable 09/11/21 10:54 Dimorphic RBCs Not Reportable 09/11/21 10:54 Polychromasia Not Reportable 09/11/21 10:54 Hypochromasia Not Reportable 09/11/21 10:54 Poikilocytosis Not Reportable 09/11/21 10:54 Anisocytosis Few 09/11/21 10:54 Microcytosis Not Reportable 09/11/21 10:54 Macrocytosis Not Reportable 09/11/21 10:54 Spherocytes Not Reportable 09/11/21 10:54 Pappenheimer Bodies Not Reportable 09/11/21 10:54 Sickle Cells Not Reportable 09/11/21 10:54 Target Cells 1+ 09/11/21 10:54 Tear Drop Cells Not Reportable 09/11/21 10:54 Ovalocytes 1+ 09/11/21 10:54 Helmet Cells Not Reportable 09/11/21 10:54 [place] Bodies Not Reportable 09/11/21 10:54 [place] Rings Not Reportable 09/11/21 10:54 Yaima Cells Not Reportable 09/11/21 10:54 Bite Cells Not Reportable 09/11/21 10:54 Crenated Cell Not Reportable 09/11/21 10:54 Elliptocytes Not Reportable 09/11/21 10:54 Acanthocytes (Spur) Not Reportable 09/11/21 10:54 Rouleaux Not Reportable 09/11/21 10:54 Hemoglobin C Crystals Not Reportable 09/11/21 10:54 Schistocytes Few 09/11/21 10:54 Malaria parasites Not Reportable 09/11/21 10:54 [place] Bodies Not Reportable 09/11/21 10:54 Hem Pathologist Commnt No 09/11/21 10:54 PT 14.7 Sec. (12.2-14.9) 09/11/21 11:04 INR 1.04 (0.87-1.13) 09/11/21 11:04 D-Dimer 1601.01 ng/mlDDU (0-234) H 09/11/21 11:04 Sodium 138 mmol/L (137-145) 09/14/21 09:53 Potassium 4.8 mmol/L (3.6-5.0) 09/14/21 09:53 Chloride 95.6 mmol/L (98-107) L 09/14/21 09:53 Carbon Dioxide 20 mmol/L (22-30) L 09/14/21 09:53 Anion Gap 27 mmol/L 09/14/21 09:53 BUN 103 mg/dL (7-17) H 09/14/21 09:53 Creatinine 7.6 mg/dL (0.6-1.2) H 09/14/21 09:53 Estimated GFR 6 ml/min 09/14/21 09:53 BUN/Creatinine Ratio 14 % 09/14/21 09:53 Glucose 184 mg/dL (65-100) H 09/14/21 09:53 Lactic Acid 1.70 mmol/L (0.7-2.0) 09/11/21 11:04 Calcium 7.2 mg/dL (8.4-10.2) L 09/14/21 09:53 Magnesium 2.10 mg/dL (1.7-2.3) 09/11/21 11:04 Ferritin 1021.0 ng/mL (10.0-200.0) H 09/11/21 11:04 Total Bilirubin 0.20 mg/dL (0.1-1.2) 09/11/21 10:54 AST 50 units/L (5-40) H 09/11/21 10:54 ALT 63 units/L (7-56) H 09/11/21 10:54 Alkaline Phosphatase 94 units/L (35-129) 09/11/21 10:54 Lactate Dehydrogenase 273 units/L (91-180) H 09/11/21 11:04 Troponin T 0.147 ng/mL (0.00-0.029) H* 09/11/21 11:04 C-Reactive Protein 2.40 mg/dL (0.00-1.30) H 09/11/21 11:04 NT-Pro-B Natriuret Pep > 91596 pg/mL (0-900) H 09/11/21 11:04 Total Protein 8.0 g/dL (6.3-8.2) 09/11/21 10:54 Albumin 3.7 g/dL (3.9-5) L 09/11/21 10:54 Albumin/Globulin Ratio 0.9 % 09/11/21 10:54 Triglycerides 105 mg/dL (2-149) 09/11/21 11:04 Cholesterol 125 mg/dL (50-199) 09/11/21 11:04 LDL Cholesterol Direct 74 mg/dL (50-130) 09/11/21 11:04 HDL Cholesterol 37 mg/dL (40-59) L 09/11/21 11:04 Cholesterol/HDL Ratio 3.37 % 09/11/21 11:04 Procalcitonin 0.54 ng/mL (<0.15) 09/11/21 11:04 Coronavirus (PCR) Negative (Negative) 09/12/21 Unknown Microbiology: Microbiology 09/11/21 11:04 Peripheral/Venous Blood Culture - Preliminary NO GROWTH AFTER 48 HOURS 09/11/21 11:04 Peripheral/Venous Blood Culture - Preliminary NO GROWTH AFTER 48 HOURS Vigil/IV: Voiding Method Toilet Active Medications - Current Medications Current Medications: Generic Name Dose Route Start Last Admin Trade Name Freq PRN Reason Stop Dose Admin Acetaminophen 650 mg 09/11/21 12:15 09/13/21 20:17 Acetaminophen 325 Mg Tab PO 650 mg Q4H PRN Administration Pain MILD(1-3)/Fever >100.5/CURRY Albuterol 2.5 mg 09/11/21 12:15 Albuterol 2.5 Mg/3 Ml Nebu IH Q4HRT PRN Shortness Of Breath Ascorbic Acid 500 mg 09/11/21 22:00 09/14/21 11:06 Ascorbic Acid 500 Mg Tab PO 500 mg BID TIFFANY Administration Carvedilol 3.125 mg 09/11/21 22:00 09/14/21 11:07 Carvedilol 3.125 Mg Tab PO 3.125 mg BID TIFFANY Administration Cholecalciferol 1,000 unit 09/11/21 14:00 09/14/21 11:06 Cholecalciferol (Vit D3) 1000 Unit (25 Mcg) Tab PO 1,000 unit DAILY TIFFANY Administration Heparin Sodium (Porcine) 5,000 unit 09/11/21 22:00 09/14/21 11:06 Heparin 5,000 Unit/1 Ml Vial SUB-Q 5,000 unit Q12HR TIFFANY Administration Hydromorphone HCl 0.5 mg 09/11/21 12:15 Hydromorphone 1 Mg/1 Ml Inj IV Q23H PRN Pain , Severe (7-10) Sodium Chloride 100 mls @ 999 mls/hr 09/13/21 10:03 Nacl 0.9% IV KATHY PRN Hypotension Losartan Potassium 50 mg 09/12/21 10:00 09/14/21 11:08 Losartan 50 Mg Tab PO 50 mg QDAY TIFFANY Administration Multivitamins 1 each 09/12/21 10:00 09/14/21 11:06 Multivitamins ,Therapeutic Tab PO 1 each DAILY TIFFANY Administration Ondansetron HCl 4 mg 09/11/21 12:15 Ondansetron 4 Mg/2 Ml Inj IV Q8H PRN Nausea And Vomiting Oxycodone/Acetaminophen 1 tab 09/11/21 12:15 Oxycodone /Acetaminophen 5-325mg Tab PO Q16H PRN Pain, Moderate (4-6) Sodium Chloride 10 ml 09/11/21 22:00 09/14/21 11:07 Sodium Chloride 0.9% 10 Ml Flush Syringe IV 10 ml BID TIFFANY Administration Sodium Chloride 10 ml 09/11/21 12:15 Sodium Chloride 0.9% 10 Ml Flush Syringe IV PRN PRN LINE FLUSH Zinc Sulfate 220 mg 09/11/21 22:00 09/14/21 11:06 Zinc Sulfate 220 Mg Cap PO 220 mg BID TIFFANY Administration
--- NOTE | 2021-09-14 16:41 | Cat Scan Report ---
CTA CHEST WITH IV CONTRAST INDICATION: Acute onset chest pain with dyspnea. TECHNIQUE: Axial CT images were obtained through the chest after injection of 100 mL Omnipaque 350 IV contrast. 3 plane MIP reconstructions were produced. All CT scans at this location are performed using CT dose reduction for ALARA by means of automated exposure control. COMPARISON: None available. FINDINGS: PULMONARY ARTERIES: No pulmonary emboli. AORTA AND ARTERIES: No acute abnormality. MEDIASTINUM: Mild cardiomegaly no mediastinal adenopathy. Prominent coronary artery calcification. LUNGS: No suspicious consolidation, nodule or mass. No pneumothorax or pleural effusion. ADDITIONAL FINDINGS: None. UPPER ABDOMEN: No acute findings. Fatty liver. The liver appears at least mildly enlarged. Both kidne ys appear somewhat decreased in size but are incompletely visualized. BONES: No significant osseous abnormality. IMPRESSION: 1. No CT evidence for pulmonary embolism. 2. Cardiomegaly, as above. 3. Fatty liver with evidence of hepatosplenomegaly. Signer Name: Nawaf Salomon MD Signed: 09/14/2021 4:36 PM Workstation Name: [id number]
[2021-09-14] MEDS: DOXYCYCLINE 100 MG CAP PO SCH ×2 (18:29→22:38)
[2021-09-14] MEDS: cefTRIAXone/NS 1 GM/50 ML 1 GM/50 ML BAG IV SCH (18:30)
[2021-09-15] MEDS: ACETAMINOPHEN 325 MG TAB PO PRN ×2 (00:16→15:05)
--- NOTE | 2021-09-15 07:13 | Progress Note ---
Assessment and Plan Impression: * End stage renal disease * Acute hypoxic respiratory failure secondary to pulmonary edema --CTA negative for PE --V/Q scan reviewed - low-int prob for PE; large perfusion defect RUL --COVID 19 negative * Pulmonary edema * Azotemia * Hypertension * Type II diabetes mellitus * Anemia secondary to ESRD * Secondary hyperparathyroidism Plan: * Hemodialysis today - UF as tolerated * Continue MWF schedule * Epogen TIW prn * Dose medications for renal function * Renal diet * Discussed need for compliance with medical care Subjective Date of service: 09/15/21 Principal diagnosis: Acute Respiratory failure, Volume overload, Acute on chroninc HFrEF Interval history: Patient without complaint Objective - Vital Signs Vital signs: Vital Signs - 12hr 09/14/21 09/14/21 09/14/21 21:00 22:07 22:38 Temperature 97.8 F Pulse Rate 87 93 H Respiratory 18 16 Rate Blood Pressure 154/88 140/81 O2 Sat by Pulse 94 97 Oximetry - General Appearance General appearance: well-developed, well-nourished EENT: ATNC Cardiology: regular, S1S2 Gastrointestinal: normal, no tenderness, no distended Integumentary: no rash, warm and dry Psychiatric: cooperative - Lab 09/12/21 09:40 09/15/21 19:35 Most recent lab results Calcium 7.2 mg/dL (8.4-10.2) L 09/14/21 09:53 Magnesium 2.10 mg/dL (1.7-2.3) 09/11/21 11:04 Medications & Allergies - Medications Allergies/Adverse Reactions: Allergies lisinopril Adverse Reaction (Verified 09/11/21 09:45) Itching Penicillins Adverse Reaction (Verified 09/11/21 09:45) Hives Home Medications: Home Medications Medication Instructions Recorded Confirmed Last Taken Type Multivitamin [Multiple Vitamins] 1 each PO QDAY 08/29/21 09/12/21 09/10/21 09:00 History carvediloL [Coreg] 3.125 mg PO BID tablet 08/30/21 09/12/21 09/11/21 22:00 Rx DOXYCYCLINE Hyclate [Vibramycin 100 mg PO BID 2 Days #4 tab 09/15/21 Unknown Rx CAP] Losartan [Cozaar] 50 mg PO QDAY 30 Days #30 tab 09/15/21 Unknown Rx Multivitamin Tab [Multiple Vitamin 1 each PO DAILY 30 Days #30 tablet 09/15/21 Unknown Rx TAB (Theragran)] carvediloL [Coreg] 3.125 mg PO BID 30 Days #60 tab 09/15/21 Unknown Rx Active Medications: Generic Name Dose Route Start Last Admin Trade Name Freq PRN Reason Stop Dose Admin Acetaminophen 650 mg 09/11/21 12:15 09/15/21 00:16 Acetaminophen 325 Mg Tab PO 650 mg Q4H PRN Administration Pain MILD(1-3)/Fever >100.5/CURRY Albuterol 2.5 mg 09/11/21 12:15 Albuterol 2.5 Mg/3 Ml Nebu IH Q4HRT PRN Shortness Of Breath Carvedilol 3.125 mg 09/11/21 22:00 09/14/21 22:38 Carvedilol 3.125 Mg Tab PO 3.125 mg BID TIFFANY Administration Doxycycline Hyclate 100 mg 09/14/21 16:00 09/14/21 22:38 Doxycycline 100 Mg Cap PO 100 mg BID TIFFANY Administration Protocol Heparin Sodium (Porcine) 5,000 unit 09/11/21 22:00 09/14/21 22:39 Heparin 5,000 Unit/1 Ml Vial SUB-Q 5,000 unit Q12HR TIFFANY Administration Hydromorphone HCl 0.5 mg 09/11/21 12:15 Hydromorphone 1 Mg/1 Ml Inj IV Q23H PRN Pain , Severe (7-10) Sodium Chloride 100 mls @ 999 mls/hr 09/13/21 10:03 Nacl 0.9% IV KATHY PRN Hypotension Ceftriaxone Sodium 1 gm in 50 mls @ 100 mls/hr 09/14/21 16:00 09/14/21 18:30 Rocephin/Ns 1 Gm/50 Ml IV 100 mls/hr Q24H TIFFANY Administration Protocol Losartan Potassium 50 mg 09/12/21 10:00 09/14/21 11:08 Losartan 50 Mg Tab PO 50 mg QDAY TIFFANY Administration Multivitamins 1 each 09/12/21 10:00 09/14/21 11:06 Multivitamins ,Therapeutic Tab PO 1 each DAILY TIFFANY Administration Ondansetron HCl 4 mg 09/11/21 12:15 Ondansetron 4 Mg/2 Ml Inj IV Q8H PRN Nausea And Vomiting Oxycodone/Acetaminophen 1 tab 09/11/21 12:15 09/14/21 22:47 Oxycodone /Acetaminophen 5-325mg Tab PO 1 tab Q16H PRN Administration Pain, Moderate (4-6) Sodium Chloride 10 ml 09/11/21 22:00 09/14/21 22:40 Sodium Chloride 0.9% 10 Ml Flush Syringe IV 10 ml BID TIFFANY Administration Sodium Chloride 10 ml 09/11/21 12:15 Sodium Chloride 0.9% 10 Ml Flush Syringe IV PRN PRN LINE FLUSH
--- NOTE | 2021-09-15 08:01 | Discharge Summary ---
Providers - Providers Date of Admission: 09/11/21 12:16 Attending physician: GARETH CAMPBELL MD 09/11/21 12:03 Consult to Physician [CONS] Stat Comment: Consulting Provider: ASIA CARO Physician Instructions: Reason For Exam: esrd 09/13/21 07:58 Consult to Physician [CONS] Routine Comment: Consulting Provider: AUSTIN DURHAM Physician Instructions: Reason For Exam: CHF, establish care 09/14/21 09:28 Physical Therapy Evaluation and Treat [CONS] Stat Comment: Reason For Exam: eval and treat Primary care physician: PSYCH THERAPIST Hospitalization Condition: Good Disposition: 30 STILL A PATIENT Exam - Constitutional Vitals: Temp Pulse Resp BP Pulse Ox 97.8 F 93 H 16 140/81 97 09/14/21 22:07 09/14/21 22:38 09/14/21 22:07 09/14/21 22:38 09/14/21 22:07 Plan Care Plan Goals: Please follow-up with cardiology at discharge. They would like to perform an outpatient stress test and further work-up to determine why your heart is weak. It is important that she get dialysis on your current schedule and not miss any sessions. Using all medications as prescribed to you daily. The CT scan of your chest shows that you have a fatty liver. Please make your primary care doctor aware. Follow up with: KATARZYNA MATUTE MD [Primary Care Provider] - 3-5 Days AUSTIN DURHAM MD [Staff Physician] - 14 Days Prescriptions: carvediloL [Coreg] 3.125 mg PO BID 30 Days #60 tab Losartan [Cozaar] 50 mg PO QDAY 30 Days #30 tab Multivitamin Tab [Multiple Vitamin TAB (Theragran)] 1 each PO DAILY 30 Days #30 tablet DOXYCYCLINE Hyclate [Vibramycin CAP] 100 mg PO BID 2 Days #4 tab
[2021-09-15] MEDS: carvediloL 3.125 MG TAB PO SCH (09:08)
[2021-09-15] MEDS: DOXYCYCLINE 100 MG CAP PO SCH (09:09)
[2021-09-15] MEDS: MULTIVITAMINS ,THERAPEUTIC TAB PO SCH (09:09)
[2021-09-15] MEDS: LOSARTAN 50 MG TAB PO SCH (09:09)
[2021-09-15 09:12] LABS: Calcium 7.1 mg/dL (8.4-10.2)
[2021-09-15] MEDS: HEPARIN 5,000 UNIT/1 ML VIAL SUB-Q SCH (09:13)
[2021-09-15 12:46] VITALS: BP 148/84
--- NOTE | 2021-09-15 13:07 | Progress Note ---
Assessment and Plan Patient is 66-year-old female with a past medical history of end-stage renal disease on hemodialysis, hypertension, obesity who presented to the ED with a complaint of shortness of breath x1 day prior to admission on 09/11/2021 NSTEMI-suspect type 2 ESRD on HD-nephrology following Acute hypoxic respiratory failure Acute on Chronic HFrEF Volume Overload PNA Prolong QT interval Cardiomyopathy Elevated D-dimer HTN Echo 08/29/2021-EF 35 to 40%. Moderate global hypokinesis of left ventricle. Right ventricle is mildly dilated. Right ventricle is mildly hypokinetic. Right atrium is mildly dilated. Atrial septal aneurysm is present. Left atrium is severely dilated. Mild to moderate aortic stenosis. Mild pulmonic regurgitation Plan: Repeat EKG shows decreasing QT prolongation. Patient is off QT prolonging agents, is on beta-nicola, and is having no PVCs or events on monitor. Continue Coreg and losartan Patient cardiac status stable for discharge Discussed with patient's following up with our office for ischemic eval. Patient verbalized and acknowledged understanding of importance of follow-up Patient is scheduled for stress test on 09/25/2021 at 10:45 AM at our [place] location Patient is scheduled for a follow-up with Dr. Ballesteros, [facility] electronic publishing specialist, on 10/13/2021 at 2 PM at our [place] location. Phone #[phone] Patient seen in conjunction with Dr. Ballesteros who agrees with this plan of care - Patient Problems (1) NSTEMI (non-ST elevated myocardial infarction) Current Visit: Yes Status: Acute (2) HFrEF (heart failure with reduced ejection fraction) Current Visit: Yes Status: Acute (3) Cardiomyopathy Current Visit: Yes Status: Acute (4) Prolonged QT interval Current Visit: Yes Status: Acute (5) Acute hypoxemic respiratory failure Current Visit: Yes Status: Acute (6) End stage renal disease Current Visit: Yes Status: Acute (7) Fluid overload Current Visit: Yes Status: Acute (8) Hyperkalemia Current Visit: Yes Status: Acute (9) Metabolic acidosis Current Visit: Yes Status: Acute (10) Pneumonia Current Visit: Yes Status: Acute (11) Anemia in CKD (chronic kidney disease) Current Visit: No Status: Chronic Qualifiers: Chronic kidney disease stage: on chronic dialysis Qualified Code(s): N18.6 - End stage renal disease; D63.1 - Anemia in chronic kidney disease; Z99.2 - Dependence on renal dialysis Subjective Date of service: 09/15/21 Principal diagnosis: Acute Respiratory failure, Volume overload, Acute on chroninc HFrEF Interval history: Patient resting in bed in no acute distress. Patient reports feeling tired Sinus 94 on monitor Objective Vital Signs Temp Pulse Resp BP Pulse Ox 09/15/21 12:40 98.5 F 83 18 148/84 97 09/15/21 09:08 83 161/99 09/15/21 08:44 18 94 09/14/21 22:38 93 H 140/81 09/14/21 22:07 97.8 F 87 16 154/88 97 09/14/21 21:00 18 94 09/14/21 17:07 97.4 F L 93 H 18 140/81 99 - Physical Examination General: No Apparent Distress HEENT: Positive: PERRL, Normocephaly Neck: Positive: trachea midline Cardiac: Positive: Reg Rate and Rhythm Lungs: Positive: Normal Breath Sounds Neuro: Positive: Grossly Intact Abdomen: Positive: Soft Skin: Negative: Rash, Suspicious Lesions, Ulceration Extremities: Present: upper extr. pulses, edema - Labs and Meds Comprehensive Metabolic Panel 09/15/21 Range/Units 08:40 Sodium 136 L (137-145) mmol/L Potassium 6.2 H* D (3.6-5.0) mmol/L Chloride 94.4 L (98-107) mmol/L Carbon Dioxide 20 L (22-30) mmol/L BUN 121 H (7-17) mg/dL Creatinine 8.3 H (0.6-1.2) mg/dL Glucose 114 H (65-100) mg/dL Calcium 7.1 L (8.4-10.2) mg/dL - Imaging and Cardiology Echo: report reviewed - Telemetry EKG Rhythm: Sinus Rhythm - EKG Sinus rhythms and dysrhythmias: sinus rhythm Repolarization changes or abnormalities: Q-T interval prolongation
[2021-09-15] MEDS: cefTRIAXone/NS 1 GM/50 ML 1 GM/50 ML BAG IV SCH (18:51)
--- NOTE | 2021-09-17 20:42 | Electrocardiograph Report ---
[facility] Test Date: 2021-09-11 Test Time: 12:12:37 Pat Name: CURT RIZZO Department: Room: A354 Gender: F Youth Care Worker: FADI : 1955 Requested By: JULIO ANDREWS Order Number: [id number] Reading MD: Francis Tarango Measurements Intervals [place] Rate: 84 P: 9 HI: 169 QRS: -29 QRSD: 100 T: 16 QT: 448 QTc: 529 Interpretive Statements Sinus rhythm Left ventricular hypertrophy Prolonged QT interval NSTW'S PRWP No previous ECG available for comparison Electronically Signed On 09-17-2021 20:42:11 EST by Francis Tarango
== END 2021-09-15 20:20 | disposition home health service (06) | DRG 280 ==
LOC: ED 09:44 → 3A 12:16
PROVIDERS: ADMIT Internal Medicine; ATTEND Student in an Organized Health Care Education/Training Program
PROC: 5A1D70Z Performance of Urinary Filtration, Intermittent, Less than 6 Hours Per Day (ICD-10-PCS; 2021-09-11)
PROC: 5A1D70Z Performance of Urinary Filtration, Intermittent, Less than 6 Hours Per Day (ICD-10-PCS; principal; 2021-09-12)
DX: I13.2 Hypertensive heart and chronic kidney disease with heart failure and with stage 5 chronic kidney disease, or end stage renal disease (principal); J96.01 Acute respiratory failure with hypoxia; I21.A1 Myocardial infarction type 2; J18.9 Pneumonia, unspecified organism; N18.6 End stage renal disease; I50.23 Acute on chronic systolic (congestive) heart failure; E87.2 Acidosis; N25.81 Secondary hyperparathyroidism of renal origin; Z20.822 Contact with and (suspected) exposure to COVID-19; E87.5 Hyperkalemia; Z82.49 Family history of ischemic heart disease and other diseases of the circulatory system; D63.1 Anemia in chronic kidney disease; I42.9 Cardiomyopathy, unspecified
CPT/HCPCS: 36415; 71045; 71046; 71275; 78580; 80048; 80053; 80061; 82140; 82728; 82947; 83615; 83735; 83880; 84132; 84145; 84484; 85007; 85025; 85379; 85610; 86140; 87040; 93005; 94640; 99285; G0378; J3490; Q9967; A9540; J0610; J0696; J1100; J1644; J1815; J1956; J2405; J2920; J7512; U0003

== ENCOUNTER 2021-09-20 08:52 | Observation (INO) | payer MEDICARE ==
[2021-09-20] MEDS ORDERED: ONDANSETRON 4 MG ODT TAB PO ONE (09:34)
[2021-09-20] MEDS ORDERED: ACETAMINOPHEN 325 MG TAB PO ONE (09:34)
[2021-09-20] MEDS ORDERED: MULTIVITAMINS ,THERAPEUTIC TAB PO STA (09:36)
[2021-09-20] MEDS ORDERED: carvediloL 3.125 MG TAB PO STA (09:36)
[2021-09-20] MEDS ORDERED: LOSARTAN 50 MG TAB PO STA (09:36)
--- NOTE | 2021-09-20 09:36 | Emergency Department Report ---
ED General Adult HPI - General Chief complaint: Abdominal Pain Stated complaint: ABD PAIN,VOMITTING PUI?: No Time Seen by Provider: 09/20/21 09:20 Source: patient, RN notes reviewed, old records reviewed Mode of arrival: Ambulatory Limitations: Physical Limitation - History of Present Illness Initial comments: The patient was evaluated in the emergency department for symptoms described in the history of present illness. He/she was evaluated in the context of the global COVID-19 pandemic, which necessitated consideration that the patient might be at risk for infection with the virus that causes COVID-19. Institutional protocols and algorithms that pertain to the evaluation of patients at risk for COVID-19 are in a state of rapid change based on information released by regulatory bodies including the CDC and federal and state organizations. These policies and algorithms were followed during the patient's care in the emergency department. Please note that these policies, procedures and recommendations changed on a rapid basis. The patient is a 61-year-old female. She has a history of end-stage renal disease, and is currently on hemodialysis. Patient recently admitted to the hospital for congestive heart failure, fluid overload. She was managed supportively and symptomatically. She was discharged a few days ago. She presents to the ER today with a complaint of lower abdominal pain and cramping, and sensation of defecating too much. Mild headache. No neck pain. No chest pain. Chronic shortness of breath. No dysuria. She is due for hemodialysis tomorrow. She indicates her abdominal pain is primarily located on her lower abdominal region, associated with prophylactic anticoagulation administration during her recent hospitalization. -: Gradual, hour(s), days(s) Location: abdomen Severity scale (0 -10): 10 Quality: aching Consistency: constant Improves with: rest Worsens with: movement - Related Data Home Medications Medication Instructions Recorded Confirmed Last Taken Multivitamin [Multiple Vitamins] 1 each PO QDAY 08/29/21 09/12/21 09/10/21 09:00 Previous Rx's Medication Instructions Recorded Last Taken Type carvediloL [Coreg] 3.125 mg PO BID tablet 08/30/21 09/11/21 22:00 Rx DOXYCYCLINE Hyclate [Vibramycin 100 mg PO BID 2 Days #4 tab 09/15/21 Unknown Rx CAP] Losartan [Cozaar] 50 mg PO QDAY 30 Days #30 tab 09/15/21 Unknown Rx Multivitamin Tab [Multiple Vitamin 1 each PO DAILY 30 Days #30 tablet 09/15/21 Unknown Rx TAB (Theragran)] carvediloL [Coreg] 3.125 mg PO BID 30 Days #60 tab 09/15/21 Unknown Rx Allergies Allergy/AdvReac Type Severity Reaction Status Date / Time lisinopril AdvReac Itching Verified 09/20/21 09:12 Penicillins AdvReac Hives Verified 09/20/21 09:12 ED Review of Systems ROS: Stated complaint: ABD PAIN,VOMITTING Other details as noted in HPI Constitutional: malaise. denies: fever Eyes: denies: eye discharge ENT: denies: congestion Respiratory: shortness of breath Cardiovascular: denies: chest pain Gastrointestinal: abdominal pain, other (Patient reports that she is defecated 3-4 times.). denies: vomiting Genitourinary: denies: dysuria Musculoskeletal: back pain Neurological: weakness Psychiatric: anxiety ED Past Medical Hx - Past Medical History Hx Hypertension: Yes Hx Congestive Heart Failure: No Hx Diabetes: No Hx Renal Disease: Yes Hx Sickle Cell Disease: No Hx Asthma: No Hx COPD: No Hx HIV: No - Social History Smoking Status: Never Smoker - Medications Home Medications: Home Medications Medication Instructions Recorded Confirmed Last Taken Type Multivitamin [Multiple Vitamins] 1 each PO QDAY 08/29/21 09/12/21 09/10/21 09:00 History carvediloL [Coreg] 3.125 mg PO BID tablet 08/30/21 09/12/21 09/11/21 22:00 Rx DOXYCYCLINE Hyclate [Vibramycin 100 mg PO BID 2 Days #4 tab 09/15/21 Unknown Rx CAP] Losartan [Cozaar] 50 mg PO QDAY 30 Days #30 tab 09/15/21 Unknown Rx Multivitamin Tab [Multiple Vitamin 1 each PO DAILY 30 Days #30 tablet 09/15/21 Unknown Rx TAB (Theragran)] carvediloL [Coreg] 3.125 mg PO BID 30 Days #60 tab 09/15/21 Unknown Rx ED Physical Exam - General Limitations: Physical Limitation General appearance: alert, anxious, obese - Head Head exam: Present: atraumatic, normocephalic - Eye Eye exam: Present: normal appearance, EOMI. Absent: nystagmus - ENT ENT exam: Present: normal exam, normal orophraynx, mucous membranes moist, normal external ear exam - Neck Neck exam: Present: normal inspection, full ROM. Absent: tenderness, meningismus - Respiratory Respiratory exam: Present: decreased breath sounds. Absent: respiratory distress, wheezes, rales, rhonchi, stridor - Cardiovascular Cardiovascular Exam: Present: regular rate, normal rhythm, normal heart sounds. Absent: bradycardia, tachycardia, irregular rhythm, systolic murmur, diastolic murmur, rubs, gallop - GI/Abdominal GI/Abdominal exam: Present: soft, tenderness, other (Lower abdominal wall ecchymosis noted.). Absent: distended, guarding, rebound, rigid, pulsatile mass - Extremities Exam Extremities exam: Present: normal inspection (Right upper extremity fistula noted, without redness, pus, streaking or tenderness), full ROM, pedal edema, other (2+ pulses noted in the bilateral upper and lower extremities. There is no palpable cord. negative Homans sign. Muscular compartments are soft. The pelvis is stable.). Absent: calf tenderness - Back Exam Back exam: Present: normal inspection. Absent: tenderness, CVA tenderness (R), CVA tenderness (L), paraspinal tenderness, vertebral tenderness - Neurological Exam Neurological exam: Present: alert, oriented X3, other (No facial droop. Tongue midline. Extraocular movements intact bilaterally. Facial sensation intact to light touch in V1, V2, V3 distribution bilaterally. 5 and a 5 strength in 4 extremities. Sensation intact to light touch in 4 extremities.). Absent: motor sensory deficit - Psychiatric Psychiatric exam: Present: anxious - Skin Skin exam: Present: warm, dry, intact, normal color. Absent: rash ED Course Vital Signs 09/20/21 09/20/21 09/20/21 09:10 09:30 10:04 Temperature 98.2 F Pulse Rate 93 H 92 H Respiratory 24 Rate Blood Pressure 147/93 Blood Pressure 162/95 [Left] O2 Sat by Pulse 98 100 Oximetry 09/20/21 09/20/21 09/20/21 10:15 10:32 10:46 Temperature Pulse Rate 90 95 H 88 Respiratory 16 18 20 Rate Blood Pressure 147/93 157/89 157/89 Blood Pressure [Left] O2 Sat by Pulse 100 100 100 Oximetry 09/20/21 09/20/21 09/20/21 11:00 11:16 11:30 Temperature Pulse Rate 89 90 91 H Respiratory 15 20 21 Rate Blood Pressure 157/89 157/89 157/89 Blood Pressure [Left] O2 Sat by Pulse 100 91 100 Oximetry 09/20/21 09/20/21 09/20/21 11:46 12:00 12:16 Temperature Pulse Rate 87 86 84 Respiratory 17 19 15 Rate Blood Pressure 157/89 157/89 157/89 Blood Pressure [Left] O2 Sat by Pulse 98 100 100 Oximetry 09/20/21 09/20/21 09/20/21 12:30 12:46 13:00 Temperature Pulse Rate 82 83 83 Respiratory 19 15 16 Rate Blood Pressure 157/89 157/89 157/89 Blood Pressure [Left] O2 Sat by Pulse 99 100 100 Oximetry 09/20/21 13:16 Temperature Pulse Rate 81 Respiratory 19 Rate Blood Pressure 157/89 Blood Pressure [Left] O2 Sat by Pulse 100 Oximetry ED Medical Decision Making - Lab Data Result diagrams: 09/20/21 09:34 09/20/21 14:02 Vital Signs 09/20/21 09/20/21 09/20/21 09:10 09:30 10:04 Temperature 98.2 F Pulse Rate 93 H 92 H Respiratory 24 Rate Blood Pressure 147/93 Blood Pressure 162/95 [Left] O2 Sat by Pulse 98 100 Oximetry 09/20/21 09/20/21 09/20/21 10:15 10:32 10:46 Temperature Pulse Rate 90 95 H 88 Respiratory 16 18 20 Rate Blood Pressure 147/93 157/89 157/89 Blood Pressure [Left] O2 Sat by Pulse 100 100 100 Oximetry 09/20/21 09/20/21 09/20/21 11:00 11:16 11:30 Temperature Pulse Rate 89 90 91 H Respiratory 15 20 21 Rate Blood Pressure 157/89 157/89 157/89 Blood Pressure [Left] O2 Sat by Pulse 100 91 100 Oximetry 09/20/21 09/20/21 09/20/21 11:46 12:00 12:16 Temperature Pulse Rate 87 86 84 Respiratory 17 19 15 Rate Blood Pressure 157/89 157/89 157/89 Blood Pressure [Left] O2 Sat by Pulse 98 100 100 Oximetry 09/20/21 09/20/21 09/20/21 12:30 12:46 13:00 Temperature Pulse Rate 82 83 83 Respiratory 19 15 16 Rate Blood Pressure 157/89 157/89 157/89 Blood Pressure [Left] O2 Sat by Pulse 99 100 100 Oximetry 09/20/21 13:16 Temperature Pulse Rate 81 Respiratory 19 Rate Blood Pressure 157/89 Blood Pressure [Left] O2 Sat by Pulse 100 Oximetry Lab Results 09/20/21 09/20/21 09/20/21 Range/Units 09:33 09:34 14:02 WBC 5.5 (4.5-11.0) K/mm3 RBC 3.63 L (3.65-5.03) M/mm3 Hgb 9.6 L (10.1-14.3) gm/dl Hct 30.5 (30.3-42.9) % MCV 84 (79-97) fl MCH 26 L (28-32) pg MCHC 32 (30-34) % RDW 17.7 H (13.2-15.2) % Plt Count 256 (140-440) K/mm3 Sodium TNR 145 Potassium TNR 6.3 H* D Chloride TNR 103.5 Carbon Dioxide TNR 17 L Anion Gap TNR 31 BUN TNR Creatinine TNR 10.4 H Estimated GFR TNR 4 BUN/Creatinine Ratio TNR Glucose TNR 99 Calcium TNR 6.9 L Total Bilirubin TNR Direct Bilirubin TNR Indirect Bilirubin TNR AST TNR ALT TNR Alkaline Phosphatase TNR Total Protein TNR Albumin TNR Albumin/Globulin Ratio TNR Urine Color (Yellow) Urine Turbidity (Clear) Urine pH (5.0-7.0) Ur Specific [place] (1.003-1.030) Urine Protein (Negative) mg/dL Urine Glucose (UA) (Negative) mg/dL Urine Ketones (Negative) mg/dL Urine Blood (Negative) Urine Nitrite (Negative) Urine Bilirubin (Negative) Urine Urobilinogen (<2.0) mg/dL Ur Leukocyte Esterase (Negative) Urine WBC (Auto) (0.0-6.0) /HPF Urine RBC (Auto) (0.0-6.0) /HPF 09/20/21 Range/Units Unknown WBC (4.5-11.0) K/mm3 RBC (3.65-5.03) M/mm3 Hgb (10.1-14.3) gm/dl Hct (30.3-42.9) % MCV (79-97) fl MCH (28-32) pg MCHC (30-34) % RDW (13.2-15.2) % Plt Count (140-440) K/mm3 Sodium Potassium Chloride Carbon Dioxide Anion Gap BUN Creatinine Estimated GFR BUN/Creatinine Ratio Glucose Calcium Total Bilirubin Direct Bilirubin Indirect Bilirubin AST ALT Alkaline Phosphatase Total Protein Albumin Albumin/Globulin Ratio Urine Color Yellow (Yellow) Urine Turbidity Slightly-cloudy (Clear) Urine pH 7.0 (5.0-7.0) Ur Specific [place] 1.013 (1.003-1.030) Urine Protein >500 (Negative) mg/dL Urine Glucose (UA) Neg (Negative) mg/dL Urine Ketones Neg (Negative) mg/dL Urine Blood Neg (Negative) Urine Nitrite Neg (Negative) Urine Bilirubin Neg (Negative) Urine Urobilinogen < 2.0 (<2.0) mg/dL Ur Leukocyte Esterase Tr (Negative) Urine WBC (Auto) < 1.0 (0.0-6.0) /HPF Urine RBC (Auto) < 1.0 (0.0-6.0) /HPF - EKG Data -: EKG Interpreted by Tx EKG shows normal: sinus rhythm Rate: normal - EKG Data 09/20/21 14:55 The EKG is interpreted at 09: 44 Sinus rhythm, rate 91 bpm. Left axis deviation, left anterior fascicular block, poor R progression, normal P wave axis. QT 5 1 3 ms. Abnormal EKG. Not a STEMI. - Radiology Data Radiology results: pending, report reviewed, image reviewed CT ABDOMEN AND PELVIS WITHOUT CONTRAST HISTORY: acute lower abd pain COMPARISON: None. TECHNIQUE: Axial CT images were obtained through the abdomen and pelvis without IV contrast. Sagittal and coronal reformatted images. All CT scans at this location are performed using CT dose reduction for ALARA by means of automated exposure control. FINDINGS: CT ABDOMEN: Lung Bases: The visualized lung bases are clear. Mild cardiomegaly. Liver: No significant abnormality. Biliary: Cholecystectomy. No biliary dilatation. Spleen: No significant abnormality. Unenlarged. Pancreas: No significant abnormality. Adrenals: No significant abnormality. Kidneys: Mild bilateral renal atrophy. No focal renal lesion, nephrolithiasis or hydronephrosis is appreciated. Lymphatics: No lymphadenopathy. Vasculature: Mild atherosclerotic plaques are noted throughout the aorta and iliac arteries. No aneurysm. Bowel/Peritoneum: No evidence for bowel obstruction or focal inflammation. Small ascites is noted in the left abdomen. No fluid collection or free air. Normal appendix. CT PELVIS: : Mild uterine fibroid disease. The adnexa are unremarkable. The bladder is mostly empty but grossly unremarkable. Osseous Structures: No significant abnormality. Additional Findings: None IMPRESSION: No acute inflammatory process is appreciated in the abdomen or pelvis. Mild cardiomegaly. Mild bilateral renal atrophy. Small ascites. Mild uterine fibroid disease. Signer Name: Bahman Miles Jr, MD Signed: 09/20/2021 9:29 AM Workstation Name: [id number] CTA CHEST WITH IV CONTRAST INDICATION: Acute onset chest pain with dyspnea. TECHNIQUE: Axial CT images were obtained through the chest after injection of 100 mL Omnipaque 350 IV contrast. 3 plane MIP reconstructions were produced. All CT scans at this location are performed using CT dose reduction for ALARA by means of automated exposure control. COMPARISON: None available. FINDINGS: PULMONARY ARTERIES: No pulmonary emboli. AORTA AND ARTERIES: No acute abnormality. MEDIASTINUM: Mild cardiomegaly no mediastinal adenopathy. Prominent coronary artery calcification. LUNGS: No suspicious consolidation, nodule or mass. No pneumothorax or pleural effusion. ADDITIONAL FINDINGS: None. UPPER ABDOMEN: No acute findings. Fatty liver. The liver appears at least mildly enlarged. Both kidneys appear somewhat decreased in size but are incompletely visualized. BONES: No significant osseous abnormality. IMPRESSION: 1. No CT evidence for pulmonary embolism. 2. Cardiomegaly, as above. 3. Fatty liver with evidence of hepatosplenomegaly. Signer Name: Nawaf Salomon MD Signed: 09/14/2021 3:36 PM Workstation Name: [id number] - Medical Decision Making Differential diagnosis, including the not limited to: Abdominal wall ecchymosis, obstruction, colitis, diverticulitis, perforation end-stage renal disease, hyperkalemia Assessment and plan: 66-year-old female with a complaint of abdominal pain. CT scan abdomen pelvis shows no acute or emergent findings. Patient very difficult IV stick, multiple laboratory studies were hemolyzed. On third attempt of acquiring laboratory studies, the patient is found to have hyperkalemia metabolic acidosis, and meets criteria for admission and hospitalization secondary to electrolyte derangement and hyperkalemia. Contacted nephrology on-call, Dr. Foley. Discussed the patient's history, physical, laboratory studies imaging studies overall clinical impression and plan of care. He will follow in consultation. He will arrange for dialysis. Is in agreement with medical management for hyperkalemia. Kayexalate will be held given side effect profile. Hospital physician, Dr. Hardin to admit to [facility] Critical care attestation.: If time is entered above; I have spent that time in minutes in the direct care of this critically ill patient, excluding procedure time. ED Disposition Clinical Impression: ESRD on dialysis, Metabolic acidosis, Hyperkalemia, Acute abdominal pain Disposition: ADMITTED INPATIENT Is pt being admited?: Yes Does the pt Need Aspirin: No Condition: Good Instructions: Abdominal Pain (ED) Referrals: PRIMARY CARE, [Primary Care Provider] - 3-5 Days
--- NOTE | 2021-09-20 10:33 | Cat Scan Report ---
CT ABDOMEN AND PELVIS WITHOUT CONTRAST HISTORY: acute lower abd pain COMPARISON: None. TECHNIQUE: Axial CT images were obtained through the abdomen and pelvis without IV contrast. Sagittal and coronal reformatted images. All CT scans at this location are performed using CT dose reduction for ALARA by means of automated exposure control. FINDINGS: CT ABDOMEN: Lung Bases: The visualized lung bases are clear. Mild cardiomegaly. Liver: No significant abnormality. Biliary: Cholecystectomy. No biliary dilatation. Spleen: No significant abnormality. Unenlarged. Pancreas: No significant abnormality. Adrenals: No significant abnormality. Kidneys: Mild bilateral renal atrophy. No focal renal lesion, nephrolithiasis or hydronephrosis is ap preciated. Lymphatics: No lymphadenopathy. Vasculature: Mild atherosclerotic plaques are noted throughout the aorta and iliac arteries. No aneur ysm. Bowel/Peritoneum: No evidence for bowel obstruction or focal inflammation. Small ascites is noted in the left abdomen. No fluid collection or free air. Normal appendix. CT PELVIS: : Mild uterine fibroid disease. The adnexa are unremarkable. The bladder is mostly empty but grossl y unremarkable. Osseous Structures: No significant abnormality. Additional Findings: None IMPRESSION: No acute inflammatory process is appreciated in the abdomen or pelvis. Mild cardiomegaly. Mild bilateral renal atrophy. Small ascites. Mild uterine fibroid disease. Signer Name: Bahman Miles Jr, MD Signed: 09/20/2021 10:29 AM Workstation Name: [id number]
[2021-09-20] MEDS ORDERED: SODIUM CHLORIDE IRRI 500 ML 500 ML IR ONE (11:07)
[2021-09-20 11:34] LABS: Bilirubin,Urine NEG (Negative); Blood,Urine NEG (Negative); Color,Urine Yellow (Yellow); RBC,Urine < 1.0 /HPF (0.0-6.0); Urobilinogen,Urine < 2.0 mg/dL (<2.0); WBC,Urine < 1.0 /HPF (0.0-6.0)
[2021-09-20 11:41] LABS: Protein,Urine >500 mg/dL (Negative)
[2021-09-20 13:12] LABS: BUN/Creatinine Ratio TNR; Blood Urea Nitrogen TNR mg/dL (7-17)
[2021-09-20 13:13] LABS: Alanine Aminotransferase TNR units/L (7-56); Albumin TNR g/dL (3.9-5); Bilirubin,Direct TNR mg/dL (0-0.2); Calcium TNR mg/dL (8.4-10.2); Hemolysis Index TNR
[2021-09-20 13:15] LABS: Hematocrit 30.5 % (30.3-42.9); Hemoglobin 9.6 gm/dl (10.1-14.3); Mean Corpuscular HGB Conc 32 % (30-34); Mean Corpuscular Volume 84 fl (79-97); Red Blood Count 3.63 M/mm3 (3.65-5.03); Red Cell Distribution Width 17.7 % (13.2-15.2)
[2021-09-20 14:25] LABS: Platelet Count 256 K/mm3 (140-440)
[2021-09-20 14:31] LABS: Calcium 6.9 mg/dL (8.4-10.2)
[2021-09-20] MEDS ORDERED: CALCIUM GLUCONATE 1,000 MG in SODIUM CHLORIDE 0.9% 100 ML IV ONE (14:52)
[2021-09-20] MEDS ORDERED: INSULIN REGULAR, HUMAN 100 UNITS/1 ML IV ONE (14:52)
[2021-09-20] MEDS ORDERED: SODIUM BICARB 8.4% 50 MEQ/50 ML SYRINGE IV ONE (14:52)
[2021-09-20] MEDS ORDERED: ALBUTEROL 2.5 MG/3 ML NEBU IH ONE (14:52)
[2021-09-20] MEDS ORDERED: DEXTROSE 50% IN WATER (25GM) 50 ML SYRINGE IV ONE (14:52)
[2021-09-20] MEDS ORDERED: SODIUM CHLORIDE 0.9% 100 ML IV PRN (15:15)
--- NOTE | 2021-09-20 16:36 | Consultation ---
History of Present Illness - Reason for Consult Consult date: 09/20/21 end stage renal disease Requesting physician: MICHAEL SIDDIQI - History of Present Illness This is a 66 year-old woman with ESRD who presents for abdominal pain. Patient usually dialyzes under the care of Dr. Veda Montalvo. Denies any recent issues with HD, including dizziness, lightheadedness, cramping, chest pain on HD. Denies missed HD sessions. Currently, patient denies any issues including dyspnea, edema, access issues, nausea, vomiting, headaches. Notes having to go to the bathroom, which is causing abdominal pain. Past History Past Medical History: ESRD, heart failure, hypertension Past Surgical History: No surgical history Social history: no significant social history Family history: no significant family history Medications and Allergies Allergies Allergy/AdvReac Type Severity Reaction Status Date / Time lisinopril AdvReac Itching Verified 09/20/21 09:12 Penicillins AdvReac Hives Verified 09/20/21 09:12 Home Medications Medication Instructions Recorded Confirmed Last Taken Type Multivitamin [Multiple Vitamins] 1 each PO QDAY 08/29/21 09/12/21 09/10/21 09:00 History carvediloL [Coreg] 3.125 mg PO BID tablet 08/30/21 09/12/21 09/11/21 22:00 Rx DOXYCYCLINE Hyclate [Vibramycin 100 mg PO BID 2 Days #4 tab 09/15/21 Unknown Rx CAP] Losartan [Cozaar] 50 mg PO QDAY 30 Days #30 tab 09/15/21 Unknown Rx Multivitamin Tab [Multiple Vitamin 1 each PO DAILY 30 Days #30 tablet 09/15/21 Unknown Rx TAB (Theragran)] carvediloL [Coreg] 3.125 mg PO BID 30 Days #60 tab 09/15/21 Unknown Rx Active Meds: Active Medications Sodium Chloride (Nacl 0.9%) 100 mls @ 999 mls/hr IV KATHY PRN PRN Reason: Hypotension Review of Systems All systems: negative (as per HPI) Exam - Vital Signs Vital signs: Vital Signs Temp Pulse Resp BP Pulse Ox 98.2 F 93 H 24 162/95 98 09/20/21 09:10 09/20/21 09:10 09/20/21 09:10 09/20/21 09:10 09/20/21 09:10 - Physical Exam Narrative exam: Constitutional: no acute distress Head: NC/AT Neck: supple Lungs: clear to auscultation CV: RRR, no M/R/G Abdomen: soft, non-tender, bowel sounds present Back: nontender Extremities: no edema, pulses WNL Skin: intact Neuro: no focal deficits, alert and oriented x4 Results - Lab Results 09/20/21 09:34 09/20/21 14:02 Most recent lab results Calcium 6.9 mg/dL (8.4-10.2) L 09/20/21 14:02 Assessment and Plan This is a 66 year old woman who presents with abdominal pain # ESRD: HD today for hyperkalemia, acidosis, azotemia with need for solute clearance. Usually HD // per report - daily labs - renally dose meds - avoid nephrotoxins - renal diet - verbal consent obtained for HD # Anemia: last hemoglobin 9.6, ESAs with HD prn # HTN: UF as tolerated. BP reasonable # Secondary Hyperparathyroidism: continue home binders as needed, vitamin D analogs prn
--- NOTE | 2021-09-20 17:51 | History and Physical Report ---
History of Present Illness Date of examination: 09/20/21 Date of admission: 09/20/2021 Chief complaint: Lower abdominal pain for 1 day History of present illness: 61-year-old female with history of hypertension and end-stage renal disease recently discharged after being treated for congestive heart failure and volume overload. Patient was discharged recently. Patient comes in with lower abdominal pain and cramping sensation. No diarrhea. No chest pain. No shortness of breath. She is due for hemodialysis tomorrow. Patient relates her abdominal pain to recent anticoagulation.. - Past Medical History --Hypertension: Yes --Renal Disease: Yes -Past surgical history --AV fistula -Family history --Htn - Social History Smoking Status: Never Smoker - Medications --Home Medications: Home Medications Medication Instructions Recorded Confirmed Last Taken Type Multivitamin [Multiple Vitamins] 1 each PO QDAY 08/29/21 09/12/21 09/10/21 09:00 History carvediloL [Coreg] 3.125 mg PO BID tablet 08/30/21 09/12/21 09/11/21 22:00 Rx DOXYCYCLINE Hyclate [Vibramycin 100 mg PO BID 2 Days #4 tab 09/15/21 Unknown Rx CAP] Losartan [Cozaar] 50 mg PO QDAY 30 Days #30 tab 09/15/21 Unknown Rx Multivitamin Tab [Multiple Vitamin 1 each PO DAILY 30 Days #30 tablet 09/15/21 Unknown Rx TAB (Theragran)] carvediloL [Coreg] 3.125 mg PO BID 30 Days #60 tab 09/15/21 Unknown Rx Review of Systems ROS: Stated complaint: ABD PAIN,VOMITTING Other details as noted in HPI Constitutional: malaise. denies: fever Eyes: denies: eye discharge ENT: denies: congestion Respiratory: shortness of breath Cardiovascular: denies: chest pain Gastrointestinal: abdominal pain, other (Patient reports that she is defecated 3-4 times.). denies: vomiting Genitourinary: denies: dysuria Musculoskeletal: back pain Neurological: weakness Psychiatric: anxiety Past History Past Medical History: ESRD, heart failure, hypertension Past Surgical History: No surgical history Social history: no significant social history Family history: no significant family history Medications and Allergies Allergies Allergy/AdvReac Type Severity Reaction Status Date / Time lisinopril AdvReac Itching Verified 09/20/21 09:12 Penicillins AdvReac Hives Verified 09/20/21 09:12 Home Medications Medication Instructions Recorded Confirmed Last Taken Type Multivitamin [Multiple Vitamins] 1 each PO QDAY 08/29/21 09/20/21 09/10/21 09:00 History carvediloL [Coreg] 3.125 mg PO BID tablet 08/30/21 09/20/21 09/11/21 22:00 Rx DOXYCYCLINE Hyclate [Vibramycin 100 mg PO BID 2 Days #4 tab 09/15/21 09/20/21 Unknown Rx CAP] Losartan [Cozaar] 50 mg PO QDAY 30 Days #30 tab 09/15/21 09/20/21 Unknown Rx Multivitamin Tab [Multiple Vitamin 1 each PO DAILY 30 Days #30 tablet 09/15/21 09/20/21 Unknown Rx TAB (Theragran)] carvediloL [Coreg] 3.125 mg PO BID 30 Days #60 tab 09/15/21 09/20/21 Unknown Rx Aspirin [[place]] 81 mg PO PRN 09/20/21 09/20/21 Unknown History Active Meds: Active Medications Sodium Chloride (Nacl 0.9%) 100 mls @ 999 mls/hr IV KATHY PRN PRN Reason: Hypotension Exam - Constitutional Vitals: Temp Pulse Resp BP Pulse Ox 98.2 F 86 22 143/91 100 09/20/21 09:10 09/20/21 16:30 09/20/21 16:30 09/20/21 16:30 09/20/21 16:30 General appearance: Present: no acute distress, well-nourished - EENT Eyes: Present: PERRL ENT: hearing intact, clear oral mucosa - Neck Neck: Present: supple, normal ROM - Respiratory Respiratory effort: normal Respiratory: bilateral: CTA - Cardiovascular Heart rate: 78 Rhythm: regular Heart Sounds: Present: S1 & S2. Absent: rub, click - Extremities Extremities: pulses symmetrical, No edema Peripheral Pulses: within normal limits - Abdominal General gastrointestinal: Present: soft, non-tender, non-distended, normal bowel sounds Female genitourinary: Present: normal - Integumentary Integumentary: Present: clear, warm, dry - Musculoskeletal Musculoskeletal: gait normal, strength equal bilaterally - Psychiatric Psychiatric: appropriate mood/affect, intact judgment & insight - Neurologic Neurologic: CNII-XII intact, moves all extremities Results - Labs CBC & Chem 7: 09/20/21 09:34 09/20/21 14:02 Labs: Laboratory Last Values WBC 5.5 K/mm3 (4.5-11.0) 09/20/21 09:34 RBC 3.63 M/mm3 (3.65-5.03) L 09/20/21 09:34 Hgb 9.6 gm/dl (10.1-14.3) L 09/20/21 09:34 Hct 30.5 % (30.3-42.9) 09/20/21 09:34 MCV 84 fl (79-97) 09/20/21 09:34 MCH 26 pg (28-32) L 09/20/21 09:34 MCHC 32 % (30-34) 09/20/21 09:34 RDW 17.7 % (13.2-15.2) H 09/20/21 09:34 Plt Count 256 K/mm3 (140-440) 09/20/21 09:34 Sodium 145 mmol/L (137-145) 09/20/21 14:02 Potassium 6.3 mmol/L (3.6-5.0) H* D 09/20/21 14:02 Chloride 103.5 mmol/L (98-107) 09/20/21 14:02 Carbon Dioxide 17 mmol/L (22-30) L 09/20/21 14:02 Anion Gap 31 mmol/L 09/20/21 14:02 BUN 135 mg/dL (7-17) H 09/20/21 14:02 Creatinine 10.4 mg/dL (0.6-1.2) H 09/20/21 14:02 Estimated GFR 4 ml/min 09/20/21 14:02 BUN/Creatinine Ratio 13 % 09/20/21 14:02 Glucose 99 mg/dL (65-100) 09/20/21 14:02 Calcium 6.9 mg/dL (8.4-10.2) L 09/20/21 14:02 Total Bilirubin TNR 09/20/21 09:33 Direct Bilirubin TNR 09/20/21 09:33 Indirect Bilirubin TNR 09/20/21 09:33 AST TNR 09/20/21 09:33 ALT TNR 09/20/21 09:33 Alkaline Phosphatase TNR 09/20/21 09:33 Total Protein TNR 09/20/21 09:33 Albumin TNR 09/20/21 09:33 Albumin/Globulin Ratio TNR 09/20/21 09:33 Urine Color Yellow (Yellow) 09/20/21 Unknown Urine Turbidity Slightly-cloudy (Clear) 09/20/21 Unknown Urine pH 7.0 (5.0-7.0) 09/20/21 Unknown Ur Specific [place] 1.013 (1.003-1.030) 09/20/21 Unknown Urine Protein >500 mg/dL (Negative) 09/20/21 Unknown Urine Glucose (UA) Neg mg/dL (Negative) 09/20/21 Unknown Urine Ketones Neg mg/dL (Negative) 09/20/21 Unknown Urine Blood Neg (Negative) 09/20/21 Unknown Urine Nitrite Neg (Negative) 09/20/21 Unknown Urine Bilirubin Neg (Negative) 09/20/21 Unknown Urine Urobilinogen < 2.0 mg/dL (<2.0) 09/20/21 Unknown Ur Leukocyte Esterase Tr (Negative) 09/20/21 Unknown Urine WBC (Auto) < 1.0 /HPF (0.0-6.0) 09/20/21 Unknown Urine RBC (Auto) < 1.0 /HPF (0.0-6.0) 09/20/21 Unknown Short CBC 09/20/21 Range/Units 09:34 WBC 5.5 (4.5-11.0) K/mm3 Hgb 9.6 L (10.1-14.3) gm/dl Hct 30.5 (30.3-42.9) % Plt Count 256 (140-440) K/mm3 BMP 09/20/21 09/20/21 09:33 14:02 Sodium TNR 145 Potassium TNR 6.3 H* D Chloride TNR 103.5 Carbon Dioxide TNR 17 L BUN TNR 135 H Creatinine TNR 10.4 H Glucose TNR 99 Calcium TNR 6.9 L Liver Function 09/20/21 Range/Units 09:33 Total Bilirubin TNR Direct Bilirubin TNR AST TNR ALT TNR Alkaline Phosphatase TNR Albumin TNR Urine 09/20/21 Range/Units Unknown Urine Color Yellow (Yellow) Urine pH 7.0 (5.0-7.0) Ur Specific [place] 1.013 (1.003-1.030) Urine Protein >500 (Negative) mg/dL Urine Glucose (UA) Neg (Negative) mg/dL - Imaging and Cardiology CT scan - chest: report reviewed Imaging and Cardiology: Abdominal CAT scan No acute inflammatory process is appreciated in the abdomen or pelvis. Mild cardiomegaly. Mild bilateral renal atrophy. Small ascites. Mild uterine fibroid disease. Assessment and Plan Advance Directives: Yes (Full code) VTE prophylaxis?: Chemical Plan of care discussed with patient/family: Yes - Patient Problems (1) Hyperkalemia Current Visit: Yes Status: Acute Plan to address problem: Patient treated with Kayexalate and IV calcium gluconate and sodium bicarbonate May go for hemodialysis today (2) Acute abdominal pain Current Visit: Yes Status: Acute Plan to address problem: Etiology unclear CAT scan of the abdomen negative Symptomatic treatment (3) End-stage renal disease on hemodialysis Current Visit: Yes Status: Chronic Plan to address problem: Hemodialysis as per schedule. (4) DVT prophylaxis Current Visit: No Status: Acute Plan to address problem: On anticoagulation GI prophylaxis (5) Advance care planning Current Visit: No Status: Acute Plan to address problem: Disease education conducted, care plan discussed, diagnosis discussed, prognosis discussed. Patient is full code. Patient acknowledges understanding and agreement with care plan. +30 minutes.
[2021-09-20] MEDS ORDERED: ACETAMINOPHEN 325 MG TAB PO PRN (17:54)
[2021-09-20] MEDS ORDERED: oxyCODONE /ACETAMINOPHEN 5-325MG TAB PO PRN (17:54)
[2021-09-20] MEDS ORDERED: ONDANSETRON 4 MG/2 ML INJ IV PRN (17:54)
[2021-09-20] MEDS ORDERED: ASPIRIN 81 MG TAB CHEW PO PRN (21:57)
[2021-09-20] MEDS: HEPARIN 5,000 UNIT/1 ML VIAL SUB-Q SCH (22:07)
[2021-09-21 07:44] LABS: Calcium 7.8 mg/dL (8.4-10.2)
--- NOTE | 2021-09-21 08:48 | Electrocardiograph Report ---
[facility] Test Date: 2021-09-20 Test Time: 09:44:54 Pat Name: CURT RIZZO Department: Room: A356 1 Gender: F Molder Labels: KEISHA : 1955 Requested By: MICHAEL SIDDIQI Order Number: [id number] Reading MD: Bryon Brandt Measurements Intervals Leonardo Rate: 91 P: 40 IN: 160 QRS: -30 QRSD: 102 T: 59 QT: 418 QTc: 513 Interpretive Statements Sinus rhythm Left ventricular hypertrophy Prolonged QT interval Compared to ECG 09/14/2021 13:33:37 No significant changes Electronically Signed On 09-21-2021 8:47:55 EST by Bryon Brandt
[2021-09-21] MEDS ORDERED: SODIUM CHLORIDE 0.9% 50 ML IVPB IV PRN (09:07)
[2021-09-21] MEDS: HEPARIN 5,000 UNIT/1 ML VIAL SUB-Q SCH (09:25)
[2021-09-21] MEDS ORDERED: ACETAMINOPHEN 325 MG TAB PO PRN (12:14)
--- NOTE | 2021-09-21 13:59 | Progress Note ---
Assessment and Plan This is a 66 year old woman who presents with abdominal pain # ESRD: HD yesterday for hyperkalemia, acidosis, azotemia with need for solute clearance. Usually HD // per report, plan for HD tomorrow while inpatient. No indication for HD today per electrolytes - daily labs - renally dose meds - avoid nephrotoxins - renal diet - verbal consent obtained for HD # Anemia: last hemoglobin 9.6, ESAs with HD prn # HTN: UF as tolerated. BP reasonable # Secondary Hyperparathyroidism: continue home binders as needed, vitamin D yani logs prn Subjective Date of service: 09/21/21 Interval history: Chart, labs, vitals reviewed Objective - Exam Narrative Exam: Exam deferred given COVID-19 pandemic - Vital Signs Vital signs: Vital Signs - 12hr 09/21/21 09/21/21 09/21/21 05:58 09:27 10:00 Temperature 97.7 F 98.0 F Pulse Rate 92 H 99 H Respiratory 20 20 Rate Blood Pressure 144/84 Blood Pressure 120/69 [Left] O2 Sat by Pulse 98 99 Oximetry - Lab 09/20/21 09:34 09/21/21 06:42 Most recent lab results Calcium 7.8 mg/dL (8.4-10.2) L 09/21/21 06:42 Medications & Allergies - Medications Allergies/Adverse Reactions: Allergies lisinopril Adverse Reaction (Verified 09/20/21 09:12) Itching Penicillins Adverse Reaction (Verified 09/20/21 09:12) Hives Home Medications: Home Medications Medication Instructions Recorded Confirmed Last Taken Type Losartan [Cozaar] 50 mg PO QDAY 30 Days #30 tab 09/15/21 09/20/21 Unknown Rx carvediloL [Coreg] 3.125 mg PO BID 30 Days #60 tab 09/15/21 09/20/21 Unknown Rx Active Medications: Generic Name Dose Route Start Last Admin Trade Name Freq PRN Reason Stop Dose Admin Acetaminophen 650 mg 09/20/21 17:54 09/21/21 12:20 Acetaminophen 325 Mg Tab PO 650 mg Q4H PRN Administration Pain MILD(1-3)/Fever >100.5/CURRY Aspirin 81 mg 09/20/21 21:57 09/20/21 22:07 Aspirin 81 Mg Tab Chew PO 81 mg QDAY PRN Administration Chest Pain Heparin Sodium (Porcine) 5,000 unit 09/20/21 22:00 09/21/21 09:25 Heparin 5,000 Unit/1 Ml Vial SUB-Q 5,000 unit Q12HR TIFFANY Administration Sodium Chloride 100 mls @ 999 mls/hr 09/20/21 15:15 Nacl 0.9% IV KATHY PRN Hypotension Ondansetron HCl 4 mg 09/20/21 17:54 Ondansetron 4 Mg/2 Ml Inj IV Q8H PRN Nausea And Vomiting Sodium Chloride 10 ml 09/20/21 22:00 09/21/21 09:26 Sodium Chloride 0.9% 10 Ml Flush Syringe IV 10 ml BID TIFFANY Administration Sodium Chloride 10 ml 09/21/21 09:07 Sodium Chloride 0.9% 50 Ml Ivpb IV PRN PRN FLUSH
--- NOTE | 2021-09-21 15:40 | Discharge Summary ---
Providers - Providers Date of Admission: 09/20/21 14:00 Attending physician: DANI MENDOZA MD 09/20/21 14:52 Consult to Physician [CONS] Stat Comment: Consulting Provider: DONNA GIBBONS Physician Instructions: Reason For Exam: esrd hyperkalemia Primary care physician: HAND THERMAL CUTTER Hospitalization Condition: Stable Disposition: 01 HOME / SELF CARE / HOMELESS Exam - Constitutional Vitals: Temp Pulse Resp BP Pulse Ox 98.0 F 99 H 20 120/69 99 09/21/21 09:27 09/21/21 09:27 09/21/21 10:00 09/21/21 09:27 09/21/21 10:00 General appearance: Present: no acute distress, obese - EENT Eyes: Present: PERRL, EOM intact ENT: clear oral mucosa - Neck Neck: Present: supple - Respiratory Respiratory effort: normal Respiratory: bilateral: CTA - Cardiovascular Rhythm: regular - Extremities Extremity abnormal: edema - Abdominal General gastrointestinal: Present: soft, non-tender, normal bowel sounds - Integumentary Integumentary: Absent: rash - Musculoskeletal Musculoskeletal: strength equal bilaterally - Psychiatric Psychiatric: appropriate mood/affect - Neurologic Neurologic: moves all extremities Plan Activity: advance as tolerated Diet: renal Special Instructions: restrict fluid intake to (1200 ml) Follow up with: PRIMARY CAREMD [Primary Care Provider] - 3-5 Days
[2021-09-21 18:48] VITALS: BP 124/67
== END 2021-09-21 21:30 | disposition home or self-care (01) ==
LOC: ED 08:52 → 3A 14:00
PROVIDERS: ADMIT Internal Medicine; ATTEND Internal Medicine
DX: E87.5 Hyperkalemia (principal); Z20.822 Contact with and (suspected) exposure to COVID-19; I13.2 Hypertensive heart and chronic kidney disease with heart failure and with stage 5 chronic kidney disease, or end stage renal disease; I50.9 Heart failure, unspecified; N18.6 End stage renal disease; D63.1 Anemia in chronic kidney disease; E87.2 Acidosis; N25.81 Secondary hyperparathyroidism of renal origin; R10.30 Lower abdominal pain, unspecified; Z99.2 Dependence on renal dialysis; Z79.82 Long term (current) use of aspirin; Z79.899 Other long term (current) drug therapy; Z98.890 Other specified postprocedural states
CPT/HCPCS: 36415; 74176; 80048; 80076; 81001; 85027; 93005; 93010; 96372; 96374; 96375; 99285; G0257; G0378; J0610; J1644; J3490; U0003; Q9967; J1815; Q0162

== ENCOUNTER 2021-11-17 19:49 | Emergency (ER) | payer MEDICARE ==
[2021-11-18] MEDS ORDERED: IPRATROPIUM/ALBUTEROL SULFATE 3 ML AMPUL.NEB IH ONE (04:30)
[2021-11-18] MEDS ORDERED: predniSONE 20 MG TAB PO ONE (04:34)
--- NOTE | 2021-11-18 05:27 | Emergency Department Report ---
- General Chief Complaint: Upper Respiratory Infection Stated Complaint: COUGH/WHEEZING Source: patient, family Mode of arrival: Wheelchair Limitations: No Limitations - History of Present Illness Initial Comments: Patient is a 66-year-old -[place] female with a history of hypertension and ESRD on hemodialysis who presents to the ED with complaint of acute onset persistent nasal and sinus congestion, frontal sinus pressure, persistent dry cough for the last 2 weeks, worse in the last 3 days. Patient states that the cough is especially worse when she lays down to sleep at night. Patient states that she has been taking bovw-lvn-fbwyvry medications with no relief. Patient states that she also has a history of seasonal allergies. Patient denies dizziness, syncope, chest pain or shortness of breath, nausea and vomiting, abdominal pain, sore throat, headache, change in vision, neck pain, diarrhea or dysuria. MD Complaint: cough, rhinorrhea, nasal congestion, sinus pain -: Sudden, week(s) (2) Severity: moderate Severity scale (0 -10): 5 Quality: dull Consistency: constant Improves With: nothing Worsens With: other (Laying in a supine position) Associated Symptoms: denies other symptoms, rhinorrhea, nasal congestion, cough. denies: fever, chills, myalgias, headache, sore throat, stiff neck, chest pain, shortness of breath, abdominal pain, nausea, vomiting, diarrhea, dysuria, rash, confusion, weight loss, hoarseness, ear pain Treatments Prior to Arrival: "cold medicine" - Related Data Previous Rx's Medication Instructions Recorded Last Taken Type carvediloL [Coreg] 3.125 mg PO BID 30 Days #60 tab 09/15/21 Unknown Rx Albuterol Sulfate [Proventil Hfa] 1 - 2 puff IH Q6H PRN #1 inh 11/18/21 Unknown Rx Benzonatate [Tessalon Perles] 100 mg PO Q8HR #39 cap 11/18/21 Unknown Rx Doxycycline Hyclate 100 mg PO Q12H #20 cap 11/18/21 Unknown Rx methylPREDNISolone [Medrol 4MG 4 mg PO DAILY #21 tab 11/18/21 Unknown Rx DOSEPAK (21 tabs)] Allergies Allergy/AdvReac Type Severity Reaction Status Date / Time lisinopril AdvReac Itching Verified 09/20/21 09:12 Penicillins AdvReac Hives Verified 09/20/21 09:12 ED Review of Systems ROS: Stated complaint: COUGH/WHEEZING Other details as noted in HPI Constitutional: denies: chills, fever Eyes: denies: eye pain, eye discharge, vision change ENT: congestion. denies: ear pain, throat pain Respiratory: cough. denies: shortness of breath, wheezing Cardiovascular: denies: chest pain, palpitations Endocrine: no symptoms reported Gastrointestinal: denies: abdominal pain, nausea, diarrhea Genitourinary: denies: urgency, dysuria, discharge Musculoskeletal: denies: back pain, joint swelling, arthralgia Skin: denies: rash, lesions Neurological: denies: headache, weakness, paresthesias Psychiatric: denies: anxiety, depression Hematological/Lymphatic: denies: easy bleeding, easy bruising ED Past Medical Hx - Past Medical History Hx Hypertension: Yes Hx Congestive Heart Failure: No Hx Diabetes: No Hx Renal Disease: Yes Hx Sickle Cell Disease: No Hx Asthma: No Hx COPD: No Hx HIV: No - Social History Smoking Status: Former Smoker - Medications Home Medications: Home Medications Medication Instructions Recorded Confirmed Last Taken Type carvediloL [Coreg] 3.125 mg PO BID 30 Days #60 tab 09/15/21 09/20/21 Unknown Rx Albuterol Sulfate [Proventil Hfa] 1 - 2 puff IH Q6H PRN #1 inh 11/18/21 Unknown Rx Benzonatate [Tessalon Perles] 100 mg PO Q8HR #39 cap 11/18/21 Unknown Rx Doxycycline Hyclate 100 mg PO Q12H #20 cap 11/18/21 Unknown Rx methylPREDNISolone [Medrol 4MG 4 mg PO DAILY #21 tab 11/18/21 Unknown Rx DOSEPAK (21 tabs)] ED Physical Exam - General Limitations: No Limitations General appearance: alert, in no apparent distress - Head Head exam: Present: atraumatic, normocephalic, normal inspection - Eye Eye exam: Present: normal appearance, PERRL, EOMI Pupils: Present: normal accommodation - ENT ENT exam: Present: normal orophraynx, mucous membranes moist, TM's normal bilaterally, normal external ear exam, other (Grossly congested nasal passages) - Neck Neck exam: Present: normal inspection, full ROM. Absent: tenderness - Respiratory Respiratory exam: Present: wheezes (Mild diffuse coarse wheezes throughout in the lower lobe). Absent: respiratory distress, rales, rhonchi, chest wall tenderness, accessory muscle use, prolonged expiratory - Cardiovascular Cardiovascular Exam: Present: regular rate, normal rhythm, normal heart sounds. Absent: systolic murmur, diastolic murmur, rubs, gallop - GI/Abdominal GI/Abdominal exam: Present: soft, normal bowel sounds. Absent: tenderness, guarding, rebound, hyperactive bowel sounds, hypoactive bowel sounds, mass - Extremities Exam Extremities exam: Present: normal inspection, full ROM, normal capillary refill - Back Exam Back exam: Present: normal inspection, full ROM. Absent: tenderness, CVA tenderness (L), muscle spasm, paraspinal tenderness - Neurological Exam Neurological exam: Present: alert, oriented X3, CN II-XII intact, normal gait, reflexes normal - Psychiatric Psychiatric exam: Present: normal affect, normal mood - Skin Skin exam: Present: warm, dry, intact, normal color. Absent: rash ED Course Vital Signs 11/17/21 11/18/21 20:33 06:19 Temperature 98.2 F Pulse Rate 92 H 88 Respiratory 18 16 Rate Blood Pressure 149/99 Blood Pressure 152/101 [Right] O2 Sat by Pulse 95 97 Oximetry ED Medical Decision Making - Radiology Data [facility] [address] [place] [address] XRay Report Signed Patient: CURT RIZZO MR#: [id number] : 1955 Acct:[id number] Age/Sex: 66 / F ADM Date: 11/17/21 Loc: ED Attending Dr: Ordering Physician: RIA LOPEZ Date of Service: 11/18/21 Procedure(s): XR chest routine 2V Accession Number(s): [id number] cc: RIA LOPEZ Fluoro Time In Minutes: CHEST 2 VIEWS INDICATION / CLINICAL INFORMATION: cough. COMPARISON: Chest x-ray 09/13/2021; CTA chest 09/14/2021 FINDINGS: SUPPORT DEVICES: None. HEART / MEDIASTINUM: Mild cardiomegaly stable. LUNGS / PLEURA: Mild prominence of the right hilum compatible with prominent vasculature stable. Lungs clear. No pneumothorax. ADDITIONAL FINDINGS: No significant additional findings. IMPRESSION: 1. No active cardiopulmonary disease. Signer Name: Jose Stallings II, MD Signed: 11/18/2021 5:10 AM Workstation Name: [id number] Transcribed By: AKILAH Dictated By: JOSE STALLINGS II, MD Electronically Authenticated By: JOSE STALLINGS II, MD Signed Date/Time: 11/18/21509 DD/ 0508 TD/TT: Print Cancel - Medical Decision Making This is a 66-year-old -[place] female with a history of hypertension and ESRD on hemodialysis who presents to the ED with complaint of acute onset persistent nasal and sinus congestion, frontal sinus pressure, persistent dry cough for the last 2 weeks, worse in the last 3 days. Patient states that the cough is especially worse when she lays down to sleep at night. Patient states that she has been taking lsah-gvz-rbowbry medications with no relief. Patient states that she also has a history of seasonal allergies. In the ED, patient is alert and oriented x3 and is not in any distress. Patient was treated in the ED with DuoNeb and oral prednisone. Chest x-ray showed no acute cardiopulmonary abnormalities or pneumonitis. Patient was discharged home on medications and advised to follow-up with her primary care physician in 5 to 7 days for reevaluation or return to the ED immediately if symptoms get worse. - Differential Diagnosis URI; sinusitis; bronchitis; pneumonia; pulmonary edema Critical care attestation.: If time is entered above; I have spent that time in minutes in the direct care of this critically ill patient, excluding procedure time. ED Disposition Clinical Impression: Acute upper respiratory infection Acute frontal sinusitis Qualifiers: Recurrence: non-recurrent Qualified Code(s): J01.10 - Acute frontal sinusitis, unspecified Acute bronchitis Qualifiers: Bronchitis organism: other organism Qualified Code(s): J20.8 - Acute bronchitis due to other specified organisms Disposition: 01 HOME / SELF CARE / HOMELESS Is pt being admited?: No Does the pt Need Aspirin: No Condition: Stable Instructions: Cough, Adult, [id number]-rt-[id number], Sinusitis, Adult, Uaan-fq-Mhin, Acute Bronchitis, Adult, [id number], Upper Respiratory Infection, Adult, Oeea-ji-Eozi, Acute Bronchitis (ED) Additional Instructions: Take medication with food, drink plenty of fluids and follow-up with your primary care physician in 5 to 7 days for reevaluation. Return to the ED immediately if symptoms get worse. Prescriptions: Doxycycline Hyclate 100 mg PO Q12H #20 cap methylPREDNISolone [Medrol 4MG DOSEPAK (21 tabs)] 4 mg PO DAILY #21 tab Albuterol Sulfate [Proventil Hfa] 1 - 2 puff IH Q6H PRN #1 inh PRN Reason: Shortness Of Breath Benzonatate [Tessalon Perles] 100 mg PO Q8HR #39 cap Referrals: TY MOSES MD [Primary Care Provider] - 3-5 Days Time of Disposition: 05:27 Print Language: TURKMEN
[2021-11-18] MEDS ORDERED: AZITHROMYCIN 250 MG TAB PO ONE (05:29)
[2021-11-18 06:20] VITALS: BP 152/101
--- NOTE | 2021-11-18 11:32 | XRay Report ---
CHEST 2 VIEWS INDICATION / CLINICAL INFORMATION: cough. COMPARISON: Chest x-ray 09/13/2021; CTA chest 09/14/2021 FINDINGS: SUPPORT DEVICES: None. HEART / MEDIASTINUM: Mild cardiomegaly stable. LUNGS / PLEURA: Mild prominence of the right hilum compatible with prominent vasculature stable. Lung s clear. No pneumothorax. ADDITIONAL FINDINGS: No significant additional findings. IMPRESSION: 1. No active cardiopulmonary disease. Signer Name: Ayo Lopez II, MD Signed: 11/18/2021 5:10 AM Workstation Name: [id number]
== END 2021-11-18 06:20 | disposition home or self-care (01) ==
LOC: ED 19:49
DX: J06.9 Acute upper respiratory infection, unspecified (principal); J01.10 Acute frontal sinusitis, unspecified; J20.8 Acute bronchitis due to other specified organisms; I10 Essential (primary) hypertension; Z88.8 Allergy status to other drugs, medicaments and biological substances; Z88.0 Allergy status to penicillin; Z87.891 Personal history of nicotine dependence
CPT/HCPCS: 71046; 94640; 99283